=== PATIENT | male | born 1935 | race Caucasian/White ===

== ENCOUNTER 2017-05-14 10:08 | Emergency (ER) | payer MEDICARE, OTHER ==
[~2017-05-14] VITALS: Ht 177.8 cm; Wt 83.9 kg
[~2017-05-14 10:08] MED LIST: ANDROGEL1.25 GM TD; ASCO500 PO; ASPI325 PO; ASPI81CH PO; ATOR20 PO; CLIN300 PO; CLOP75 PO; DICL75ER PO; Dilaudid 2 mg Ta2 MG PO; GLUCOSAMINE &1 EACH PO; ISOMON20; Keflex500 MG PO; LEVOCETIRIZINE D5 MG PO; Metoprolol Succ25 MG PO; Miralax17 GM PO; NITR.4SL SL; Nitroglycerin0.4 MG; OMEP20ER PO; Omeprazole20 M1 PO; Percocet 5-3251 EACH PO; Roxicodone5 MG PO; Super B Comple150 MG PO; Super B-50 Com1 EACH PO; TESTOSTERONE PO; TRAZ50 PO
[2017-05-14 11:01] LABS: BASOPHILS ABSOLUTE AUTO 0.07 K/mm3 (0.00-0.23); BASOPHILS PERCENT AUTO 2 % (0-2); EOSINOPHILS ABSOLUTE AUTO 0.04 K/mm3 (0.00-0.68); EOSINOPHILS PERCENT AUTO 1 % (0-6); Hematocrit 40.7 % (37.0-53.0); IMMATURE GRAN PERCENT AUTO 0 % (0-1); LYMPHOCYTES ABSOLUTE AUTO 0.87 K/mm3 (0.84-5.20); LYMPHOCYTES PERCENT AUTO 24 % (21-46); MONOCYTES ABSOLUTE AUTO 0.27 K/mm3 (0.16-1.47); MONOCYTES PERCENT AUTO 7 % (4-13); Mean Corpuscular HGB Conc 34.4 g/dL (31.5-36.5); Mean Corpuscular Volume 93 fL (80-100); Mean Platelet Volume 8.4 fL (9.1-12.4); NEUTROPHILS PERCENT AUTO 66 % (41-73); Platelet Count 307 K/mm3 (150-400); RDW Coefficient Variation 12.3 % (11.7-14.2); RDW Standard Deviation 42.4 fL (35.1-46.3); Red Blood Cell Count 4.37 M/mm3 (4.30-5.90); White Blood Cell Count 3.65 K/mm3 (4.00-11.30)
[2017-05-14 11:22] LABS: Alanine Aminotransfer (ALT/SGP 15 U/L (12-78); Albumin, Blood 3.2 g/dL (3.4-5.0); Alk Phos 91 U/L (50-136); Anion Gap 9 mmol/L (6-16); Aspartate Aminotrans (AST/SGOT 15 U/L (12-37); Bilirubin, Total 0.5 mg/dL (0.1-1.0); Blood Urea Nitrogen 15 mg/dL (8-24); Bun/Creatinine Ratio 13.9 (12.0-20.0); CO2, Blood 24 mmol/L (21-32); Calcium, Blood 8.2 mg/dL (8.5-10.1); Chloride, Blood 108 mmol/L (98-108); Creatinine, Blood 1.08 mg/dL (0.60-1.20); Globulin, Blood 3.3 g/dL (2.2-4.0); Glomerular Filtration Rate >60 (60-); Glucose, Blood 126 mg/dL (70-99); Potassium, Blood 4.1 mmol/L (3.5-5.5); Sodium, Blood 141 mmol/L (136-145); Total Protein, Blood 6.5 g/dL (6.4-8.2); Troponin I <0.015 ng/mL (0.000-0.040)
[2017-05-14] MEDS ORDERED: Celebrex200 MG PO (11:32)
[2017-05-14] MEDS ORDERED: Norco 5-325 Ta1 EACH PO (11:32)
[2017-10-04] MEDS ORDERED: TYLENOL325 MG PO (13:09)
[2017-10-04] MEDS ORDERED: Stool Softener100 MG PO (13:10)
[2017-10-04] MEDS ORDERED: ATOR20 PO (13:11)
[2017-10-04] MEDS ORDERED: MELA3 PO (13:11)
[2017-11-20] MEDS ORDERED: VITAMIN C PO (11:19)
[2017-11-20] MEDS ORDERED: Preservision A1 EACH PO (11:20)
[2017-12-31] MEDS ORDERED: VIT1CAPS12 PO (06:30)
== END 2017-05-14 11:59 | disposition home or self-care (01) ==
LOC: ER 10:08
PROVIDERS: Internal Medicine
DX: R07.89 Other chest pain (principal); M94.0 Chondrocostal junction syndrome [Tietze]; Z88.0 Allergy status to penicillin; Z88.5 Allergy status to narcotic agent; Z79.899 Other long term (current) drug therapy; Z79.82 Long term (current) use of aspirin
CPT/HCPCS: 36415; 71046; 80053; 84484; 85025; 85379; 93005; 93010; 99283

== ENCOUNTER 2018-08-15 15:35 | Emergency (ER) | payer MEDICARE, OTHER ==
[~2018-08-15] VITALS: Ht 177.8 cm; Wt 78.0 kg
[~2018-08-15 15:35] MED LIST changes: +Celebrex200 MG PO; +MELA3 PO; +Norco 5-325 Ta1 EACH PO; +Preservision A1 EACH PO; +Stool Softener100 MG PO; +TYLENOL325 MG PO; +VIT1CAPS12 PO; +VITAMIN C PO
[2018-08-15] MEDS ORDERED: LEVOFLOXACIN250 MG PO (16:12)
[2018-08-15] MEDS ORDERED: IBUP800 (16:12)
[2018-08-15] MEDS ORDERED: NITR.4SL SL (16:12)
[2018-08-15] MEDS ORDERED: OMEPRAZOLE CAP 20M (16:12)
[2018-08-15 16:23] LABS: BASOPHILS ABSOLUTE AUTO 0.06 K/mm3 (0.00-0.23); BASOPHILS PERCENT AUTO 1 % (0-2); EOSINOPHILS ABSOLUTE AUTO 0.14 K/mm3 (0.00-0.68); EOSINOPHILS PERCENT AUTO 3 % (0-6); Hematocrit 41.5 % (37.0-53.0); Hemoglobin 13.6 g/dL (13.5-17.5); IMMATURE GRAN ABSOLUTE AUTO 0.01 K/mm3 (0.00-0.10); IMMATURE GRAN PERCENT AUTO 0 % (0-1); LYMPHOCYTES ABSOLUTE AUTO 1.16 K/mm3 (0.84-5.20); LYMPHOCYTES PERCENT AUTO 25 % (21-46); MONOCYTES ABSOLUTE AUTO 0.25 K/mm3 (0.16-1.47); MONOCYTES PERCENT AUTO 5 % (4-13); Mean Corpuscular HGB 31.4 pg (26.0-34.0); Mean Corpuscular HGB Conc 32.8 g/dL (31.5-36.5); Mean Corpuscular Volume 96 fL (80-100); Mean Platelet Volume 8.8 fL (9.1-12.4); NEUTROPHILS ABSOLUTE AUTO 2.97 K/mm3 (1.96-9.15); NEUTROPHILS PERCENT AUTO 65 % (41-73); Platelet Count 371 K/mm3 (150-400); RDW Coefficient Variation 12.3 % (11.7-14.2); Red Blood Cell Count 4.33 M/mm3 (4.30-5.90); White Blood Cell Count 4.59 K/mm3 (4.00-11.30)
[2018-08-15 16:46] LABS: Alanine Aminotransfer (ALT/SGP 14 U/L (12-78); Albumin, Blood 3.4 g/dL (3.4-5.0); Alk Phos 92 U/L (50-136); Anion Gap 7 mmol/L (6-16); Aspartate Aminotrans (AST/SGOT 10 U/L (12-37); Bilirubin, Total 0.4 mg/dL (0.1-1.0); Blood Urea Nitrogen 21 mg/dL (8-24); Bun/Creatinine Ratio 16.9 (12.0-20.0); CO2, Blood 26 mmol/L (21-32); Calcium, Blood 8.2 mg/dL (8.5-10.1); Chloride, Blood 110 mmol/L (98-108); Creatinine, Blood 1.24 mg/dL (0.60-1.20); Globulin, Blood 3.4 g/dL (2.2-4.0); Glomerular Filtration Rate 59 (60-); Glucose, Blood 109 mg/dL (70-99); Sodium, Blood 143 mmol/L (136-145); Total Protein, Blood 6.8 g/dL (6.4-8.2); Troponin I <0.015 ng/mL (0.000-0.040)
== END 2018-08-15 18:23 | disposition home or self-care (01) ==
LOC: ER 15:35
PROVIDERS: Internal Medicine
DX: R07.9 Chest pain, unspecified (principal); R29.898 Other symptoms and signs involving the musculoskeletal system; Z88.0 Allergy status to penicillin; Z88.5 Allergy status to narcotic agent; Z88.8 Allergy status to other drugs, medicaments and biological substances; Z79.899 Other long term (current) drug therapy; Z79.82 Long term (current) use of aspirin
CPT/HCPCS: 70450; 71046; 80053; 83690; 83880; 84484; 85025; 93005; 93010; 99285-25

== ENCOUNTER → 2018-09-01 | Outpatient (CLI) | payer MEDICARE, OTHER ==
[~2018-09-01] MED LIST changes: +DOCU100 PO; +IBUP800; +LEVOFLOXACIN250 MG PO; +MELATONIN10 M2 PO; +OMEPRAZOLE CAP 20M
== END ==
LOC: PLD 07:24 → LAB SHORT 07:24
DX: D48.5 Neoplasm of uncertain behavior of skin (principal)
CPT/HCPCS: 88341; 88342

== ENCOUNTER 2018-10-06 18:35 | Emergency (ER) | payer MEDICARE, OTHER ==
[~2018-10-06] VITALS: Ht 177.8 cm; Wt 78.5 kg
[~2018-10-06 18:35] MED LIST changes: -DOCU100 PO; -MELATONIN10 M2 PO
[2018-10-06 19:11] LABS: BASOPHILS ABSOLUTE AUTO 0.07 K/mm3 (0.00-0.23); BASOPHILS PERCENT AUTO 1 % (0-2); EOSINOPHILS ABSOLUTE AUTO 0.09 K/mm3 (0.00-0.68); EOSINOPHILS PERCENT AUTO 2 % (0-6); Hematocrit 36.9 % (37.0-53.0); Hemoglobin 12.2 g/dL (13.5-17.5); IMMATURE GRAN PERCENT AUTO 0 % (0-1); LYMPHOCYTES ABSOLUTE AUTO 1.15 K/mm3 (0.84-5.20); LYMPHOCYTES PERCENT AUTO 23 % (21-46); MONOCYTES ABSOLUTE AUTO 0.31 K/mm3 (0.16-1.47); MONOCYTES PERCENT AUTO 6 % (4-13); Mean Corpuscular HGB 31.9 pg (26.0-34.0); Mean Corpuscular HGB Conc 33.1 g/dL (31.5-36.5); Mean Corpuscular Volume 96 fL (80-100); Mean Platelet Volume 8.6 fL (9.1-12.4); NEUTROPHILS PERCENT AUTO 67 % (41-73); Platelet Count 392 K/mm3 (150-400); RDW Coefficient Variation 12.9 % (11.7-14.2); RDW Standard Deviation 45.5 fL (35.1-46.3); Red Blood Cell Count 3.83 M/mm3 (4.30-5.90); White Blood Cell Count 4.92 K/mm3 (4.00-11.30)
[2018-10-06 19:32] LABS: Alanine Aminotransfer (ALT/SGP 12 U/L (12-78); Albumin, Blood 3.3 g/dL (3.4-5.0); Alk Phos 86 U/L (50-136); Anion Gap 5 mmol/L (6-16); Aspartate Aminotrans (AST/SGOT 11 U/L (12-37); Bilirubin, Total 0.2 mg/dL (0.1-1.0); Blood Urea Nitrogen 25 mg/dL (8-24); Bun/Creatinine Ratio 20.2 (12.0-20.0); CO2, Blood 26 mmol/L (21-32); Calcium, Blood 7.9 mg/dL (8.5-10.1); Chloride, Blood 111 mmol/L (98-108); Creatinine, Blood 1.24 mg/dL (0.60-1.20); Globulin, Blood 3.3 g/dL (2.2-4.0); Glomerular Filtration Rate 59 (60-); Glucose, Blood 95 mg/dL (70-99); Potassium, Blood 4.1 mmol/L (3.5-5.5); Sodium, Blood 142 mmol/L (136-145); Total Protein, Blood 6.6 g/dL (6.4-8.2); Troponin I <0.015 ng/mL (0.000-0.040)
[2018-10-30] MEDS ORDERED: VIT1CAPS12 PO (11:19)
[2018-10-30] MEDS ORDERED: ASCO500 PO (11:19)
[2018-10-30] MEDS ORDERED: MELATONIN10 M2 PO (11:20)
[2018-10-30] MEDS ORDERED: DOCU100 PO (11:20)
== END 2018-10-06 23:56 | disposition home or self-care (01) ==
LOC: ER 18:35
PROVIDERS: Physician Assistant
DX: R07.89 Other chest pain (principal); Z88.0 Allergy status to penicillin; Z88.5 Allergy status to narcotic agent; Z88.8 Allergy status to other drugs, medicaments and biological substances; Z79.899 Other long term (current) drug therapy; Z79.82 Long term (current) use of aspirin
CPT/HCPCS: 36415; 71046; 80053; 84484; 85025; 93005; 93010; 99285-25

== ENCOUNTER 2018-11-06 09:00 | Day surgery (SDC) | payer MEDICARE, OTHER ==
[~2018-11-06] VITALS: Ht 177.8 cm; Wt 75.4 kg
[~2018-11-06 09:00] MED LIST changes: +DOCU100 PO; +MELATONIN10 M2 PO
[2018-11-06 11:13] LABS: Anion Gap 13 mmol/L (6-16); Blood Urea Nitrogen 11 mg/dL (8-24); Bun/Creatinine Ratio 14.4 (12.0-20.0); CO2, Blood 23 mmol/L (21-32); Chloride, Blood 110 mmol/L (98-108); Creatinine, Blood 0.76 mg/dL (0.60-1.20); Glomerular Filtration Rate >60 (60-); Glucose, Blood 79 mg/dL (70-99); Potassium, Blood 4.8 mmol/L (3.5-5.5); Sodium, Blood 146 mmol/L (136-145)
--- NOTE | 2018-11-06 11:21 | NUR ---
11/06/[address] NOTIFIED OF PT.'S LABS DRAWN IN PREOP.
== END 2018-11-06 12:33 | disposition home or self-care (01) ==
LOC: ORSCSDS 09:00
PROVIDERS: Surgery
PROC: 0DBM8ZX Excision of Descending Colon, Via Natural or Artificial Opening Endoscopic, Diagnostic (ICD-10-PCS; principal; 2018-11-06 10:30)
PROC: 0DB58ZX Excision of Esophagus, Via Natural or Artificial Opening Endoscopic, Diagnostic (ICD-10-PCS; principal; 2018-11-06 10:30)
PROC: 0DB68ZX Excision of Stomach, Via Natural or Artificial Opening Endoscopic, Diagnostic (ICD-10-PCS; principal; 2018-11-06 10:30)
PROC: 0DBL8ZX Excision of Transverse Colon, Via Natural or Artificial Opening Endoscopic, Diagnostic (ICD-10-PCS; principal; 2018-11-06 10:30)
DX: Z12.11 Encounter for screening for malignant neoplasm of colon (principal); Z86.010 Personal history of colon polyps; D12.3 Benign neoplasm of transverse colon; D12.4 Benign neoplasm of descending colon; K21.9 Gastro-esophageal reflux disease without esophagitis; K22.70 Barrett's esophagus without dysplasia; Z87.19 Personal history of other diseases of the digestive system; I25.10 Atherosclerotic heart disease of native coronary artery without angina pectoris; I10 Essential (primary) hypertension; E78.5 Hyperlipidemia, unspecified; Z79.899 Other long term (current) drug therapy; Z79.82 Long term (current) use of aspirin
CPT/HCPCS: 80048; 88305; 88342; 93005; 93010; J2704; J7120

== ENCOUNTER → 2019-12-23 | Outpatient (CLI) | payer MEDICARE, OTHER ==
[~2019-12-23] MED LIST changes: +ACET500 PO; +ATOR20; +Aspir 8181 MG PO; +IBUP800 PO; +METO25ER PO; +OMEPRAZOLE20 M1 PO; +PRESERVISION L1 EACH PO; +[UNRECOGNIZED DRUG - REMARK] PO
[2019-12-23 14:20] LABS: Microalbumin, Urine Quant. 35.7 mg/L (0.000-20.000); Protein, Urine Quantitative 26.4 mg/dL (0.0-11.9)
[2019-12-24 14:03] LABS: Stool Occult Bld Immuno 1 Negative (NEGATIVE)
== END | disposition home or self-care (01) ==
LOC: OLS 12:15 → LAB SHORT 12:15 → LAB FUT 12-20 12:05
PROVIDERS: Internal Medicine Nephrology
DX: N18.2 Chronic kidney disease, stage 2 (mild) (principal); D63.1 Anemia in chronic kidney disease; N25.81 Secondary hyperparathyroidism of renal origin; E55.9 Vitamin D deficiency, unspecified; E78.00 Pure hypercholesterolemia, unspecified; D51.8 Other vitamin B12 deficiency anemias; D52.8 Other folate deficiency anemias; D50.9 Iron deficiency anemia, unspecified; R76.9 Abnormal immunological finding in serum, unspecified; R94.5 Abnormal results of liver function studies; R94.6 Abnormal results of thyroid function studies
CPT/HCPCS: 81050; 82043; 82570; 84156; G0328

== ENCOUNTER 2020-02-27 08:07 | Emergency (ER) | payer MEDICARE, OTHER ==
[~2020-02-27] VITALS: Ht 177.8 cm; Wt 79.4 kg
[~2020-02-27 08:07] MED LIST changes: -ATOR20
[2020-02-27 10:36] LABS: Source, Urine Clean Catch
[2020-02-27 10:40] LABS: Appearance, Urine Clear (Clear); Bilirubin, Urine Neg (Neg); Blood, Urine 1+ (Neg); Color, Urine Yellow (P-Yellow); Glucose Qualitative, Urine Neg (Neg); Ketones, Urine Neg (Neg); Leukocyte Esterase, Urine Neg (Neg); Nitrite, Urine Neg (Neg); Protein, Urine Neg (Neg); Urobilinogen, Urine NORM (Normal)
[2020-02-27 10:53] LABS: White Blood Cells, Urine 0-2 /hpf (0-5)
[2020-02-27 10:54] LABS: Bacteria Not Seen /hpf; Squamous Epithelial Cells Not Seen /hpf (Few)
[2020-02-27] MEDS ORDERED: TRAZ100 PO (11:12)
[2020-02-27] MEDS ORDERED: Isosorbide Mono30 MG PO (11:14)
[2020-02-27] MEDS ORDERED: FISH OIL PO (11:15)
[2020-02-27] MEDS ORDERED: GABA300 PO (11:15)
[2020-02-27] MEDS ORDERED: CALCIUM-MAGNES1 EAC9 PO (11:16)
[2020-02-27] MEDS ORDERED: Depakote ER500 MG PO (11:17)
== END 2020-02-27 11:55 | disposition home or self-care (01) ==
LOC: ER 08:07
PROVIDERS: Physician Assistant
DX: R33.9 Retention of urine, unspecified (principal); I10 Essential (primary) hypertension; Z88.0 Allergy status to penicillin; Z88.5 Allergy status to narcotic agent; Z88.8 Allergy status to other drugs, medicaments and biological substances; Z95.5 Presence of coronary angioplasty implant and graft; Z79.82 Long term (current) use of aspirin; Z79.899 Other long term (current) drug therapy
CPT/HCPCS: 51702; 51798; 81001; 99283-25

== ENCOUNTER 2020-02-28 10:19 | Emergency (ER) | payer MEDICARE, OTHER ==
[~2020-02-28] VITALS: Ht 177.8 cm; Wt 78.0 kg
[~2020-02-28 10:19] MED LIST changes: +CALCIUM-MAGNES1 EAC9 PO; +Depakote ER500 MG PO; +FISH OIL PO; +GABA300 PO; +Isosorbide Mono30 MG PO; +TRAZ100 PO
== END 2020-02-28 11:12 | disposition home or self-care (01) ==
LOC: ER 10:19
DX: T83.84XA Pain due to genitourinary prosthetic devices, implants and grafts, initial encounter (principal); I10 Essential (primary) hypertension; Z79.82 Long term (current) use of aspirin; Z79.899 Other long term (current) drug therapy; Z88.0 Allergy status to penicillin; Z88.5 Allergy status to narcotic agent; Z88.8 Allergy status to other drugs, medicaments and biological substances; Z95.5 Presence of coronary angioplasty implant and graft
CPT/HCPCS: 99282-25

== ENCOUNTER 2020-03-01 12:05 | Emergency (ER) | payer MEDICARE, OTHER ==
[~2020-03-01] VITALS: Ht 177.8 cm; Wt 78.0 kg
== END 2020-03-01 14:10 | disposition home or self-care (01) ==
LOC: ER 12:05
DX: T83.031A Leakage of indwelling urethral catheter, initial encounter (principal); I95.9 Hypotension, unspecified; Z79.82 Long term (current) use of aspirin; Z79.899 Other long term (current) drug therapy; Z88.0 Allergy status to penicillin; Z88.5 Allergy status to narcotic agent
CPT/HCPCS: 51702; 99282-25

== ENCOUNTER 2020-03-28 12:39 | Inpatient (IN) | payer MEDICARE, OTHER ==
[~2020-03-28] VITALS: Ht 177.8 cm; Wt 72.1 kg
[2020-03-28 13:10] LABS: BASOPHILS ABSOLUTE AUTO 0.06 K/mm3 (0.00-0.23); BASOPHILS PERCENT AUTO 1 % (0-2); EOSINOPHILS ABSOLUTE AUTO 0.04 K/mm3 (0.00-0.68); EOSINOPHILS PERCENT AUTO 1 % (0-6); Hematocrit 43.4 % (37.0-53.0); Hemoglobin 13.7 g/dL (13.5-17.5); IMMATURE GRAN ABSOLUTE AUTO 0.01 K/mm3 (0.00-0.10); IMMATURE GRAN PERCENT AUTO 0 % (0-1); LYMPHOCYTES ABSOLUTE AUTO 1.07 K/mm3 (0.84-5.20); LYMPHOCYTES PERCENT AUTO 23 % (21-46); MONOCYTES ABSOLUTE AUTO 0.37 K/mm3 (0.16-1.47); MONOCYTES PERCENT AUTO 8 % (4-13); Mean Corpuscular HGB 31.9 pg (26.0-34.0); Mean Corpuscular HGB Conc 31.6 g/dL (31.5-36.5); Mean Corpuscular Volume 101 fL (80-100); NEUTROPHILS ABSOLUTE AUTO 3.02 K/mm3 (1.96-9.15); NEUTROPHILS PERCENT AUTO 66 % (41-73); Platelet Count 299 K/mm3 (150-400); RDW Coefficient Variation 13.1 % (11.7-14.2); RDW Standard Deviation 48.8 fL (35.1-46.3); Red Blood Cell Count 4.29 M/mm3 (4.30-5.90); White Blood Cell Count 4.57 K/mm3 (4.00-11.30)
[2020-03-28 13:27] LABS: Alanine Aminotransfer (ALT/SGP 12 U/L (12-78); Albumin, Blood 3.2 g/dL (3.4-5.0); Albumin/Globulin Ratio 0.8 (0.8-1.8); Alk Phos 77 U/L (50-136); Anion Gap 3 mmol/L (6-16); Aspartate Aminotrans (AST/SGOT 14 U/L (12-37); Bilirubin, Total 0.3 mg/dL (0.1-1.0); Blood Urea Nitrogen 26 mg/dL (8-24); Bun/Creatinine Ratio 19.3 (12.0-20.0); CO2, Blood 29 mmol/L (21-32); Calcium, Blood 8.1 mg/dL (8.5-10.1); Chloride, Blood 109 mmol/L (98-108); Creatinine, Blood 1.35 mg/dL (0.60-1.20); Globulin, Blood 3.8 g/dL (2.2-4.0); Glomerular Filtration Rate 54 (60-); Glucose, Blood 82 mg/dL (70-99); Potassium, Blood 4.4 mmol/L (3.5-5.5); Sodium, Blood 141 mmol/L (136-145); Troponin I <0.015 ng/mL (0.000-0.040)
[2020-03-28] MEDS ORDERED: METOPROLOL SUCC25 MG PO (14:50)
[2020-03-28] MEDS ORDERED: DEPAKOTE ER500 MG PO (14:50)
[2020-03-28] MEDS ORDERED: NEURONTIN600 MG PO (14:50)
[2020-03-28] MEDS ORDERED: TRAZ50 PO (14:50)
[2020-03-28] MEDS ORDERED: ATORVASTATIN CA20 MG PO (14:51)
[2020-03-28] MEDS ORDERED: NITR.4SL SL (14:51)
[2020-03-28] MEDS ORDERED: PRILOSEC OTC20 MG PO (14:51)
[2020-03-28 15:38] LABS: International Normalized Ratio 1.02; Prothrombin Time Results 10.9 Sec (9.7-11.5)
--- NOTE | 2020-03-28 19:26 | NUR ---
PT RESTING IN BED AFTER DINNER AND RN SURGICAL PCU. PT LINE WNL AND RUNNING HEP DRIP BEING TITRATED BY PHARMACY. PT MAKES NO COMPLAINTS OF PAIN OR SOB AT THIS TIME, HOWEVER HE RECEIVED HIS NITRO PAST 1.5 HOURS EARLY DIRECTED BY UNIT CHARGE WHEN AN "ACHE" OCCURED. STAFF WILL CONT. TO MONITOR.
--- NOTE | 2020-03-28 20:43 | NUR ---
PT on tele hx card with stent 10 years ago says he has chest tightness discomfort 05/04 with [address] Tele shows SR at 80. Hx of misael fundipication remote & says he is having procedure on 04/12/20 for esophageal problems ongoing food sticking. Continues on heparin gtt & NS at 75 ml hr x 1 l. Had flu vaccine 2 weeks ago.
[2020-03-28] MEDS ORDERED: ATOR40TA PO (21:36)
[2020-03-29 01:19] LABS: BASOPHILS ABSOLUTE AUTO 0.07 K/mm3 (0.00-0.23); BASOPHILS PERCENT AUTO 2 % (0-2); EOSINOPHILS ABSOLUTE AUTO 0.11 K/mm3 (0.00-0.68); EOSINOPHILS PERCENT AUTO 3 % (0-6); Hemoglobin 11.2 g/dL (13.5-17.5); IMMATURE GRAN ABSOLUTE AUTO 0.01 K/mm3 (0.00-0.10); IMMATURE GRAN PERCENT AUTO 0 % (0-1); LYMPHOCYTES ABSOLUTE AUTO 1.83 K/mm3 (0.84-5.20); LYMPHOCYTES PERCENT AUTO 45 % (21-46); MONOCYTES ABSOLUTE AUTO 0.36 K/mm3 (0.16-1.47); MONOCYTES PERCENT AUTO 9 % (4-13); Mean Corpuscular HGB 32.9 pg (26.0-34.0); Mean Corpuscular HGB Conc 32.9 g/dL (31.5-36.5); Mean Corpuscular Volume 100 fL (80-100); Mean Platelet Volume 9.1 fL (9.1-12.4); NEUTROPHILS PERCENT AUTO 42 % (41-73); Platelet Count 223 K/mm3 (150-400); RDW Coefficient Variation 13.1 % (11.7-14.2); RDW Standard Deviation 48.3 fL (35.1-46.3); White Blood Cell Count 4.08 K/mm3 (4.00-11.30)
[2020-03-29 01:40] LABS: Bun/Creatinine Ratio 23.2 (12.0-20.0); Calcium, Blood 7.4 mg/dL (8.5-10.1); Creatinine, Blood 1.25 mg/dL (0.60-1.20); Potassium, Blood 4.3 mmol/L (3.5-5.5); Troponin I 0.047 ng/mL (0.000-0.040)
--- NOTE | 2020-03-29 05:56 | NUR ---
84 year old Male has lt chest pain 9 of 10 x 1 unstable angina with hx of cardiac stent in 2010 angiogram 2014 without further stenting. PT alert in good spirits joking. He has heparin GTT managed by pharmacy with APTT as per pharmacy. Increased heparin gtt rate from 13 units fro kg to 14 units kg this AM. PT had chest pain lt sided 11/23 relieved by fentanyl 25 mg x 1 & tylenol 650 mg. PT states he has chronic acute constipation with last BM 2 weeks ago after he said last BM 1 week ago. He takes stool softeners at home with laxative use also reported.abd soft nontender hypo BS. Poor appetite recieved NS at 75 ml hr with increased urine production. Has cardilogy consult pending. Serial troponins with 3rd slightly high. DNR status verfied. PT refused SCDS hear home support isadora loomis . Support offered.
--- NOTE | 2020-03-29 06:46 | NUR ---
DR Olivares updated on 3rd troponin elevated from 0.039 to 0.047 with denial of acute chest pain this AM.
--- NOTE | 2020-03-29 18:36 | NUR ---
SHIFT SUMMARY PT A/O X4; PLEASANT AND COOPERATIVE WITH CARE. C/O CP X1 THIS SHIFT AND TREATED PER EMR. PT IS ON A HEPARIN DRIP, MANAGED BY PHARMACY. GOING TO HAVE AN ANGIOGRAM TOMORROW. STAND BY ASSIST IN THE ROOM. VSS; CURRENTLY RESTING COMFORTABLY IN BED WITH HIS CALL LIGHT IN REACH.
[2020-03-29] MEDS ORDERED: MIRALAX17 GM PO (20:42)
[2020-03-29] MEDS ORDERED: SENNA LAXATIVE8.6 MG PO (20:42)
[2020-03-29] MEDS ORDERED: BISA10S PR (20:43)
[2020-03-29] MEDS ORDERED: BISA5EC PO (20:44)
--- NOTE | 2020-03-30 01:08 | NUR ---
RN MATERNAL CHILD Blanca BENJAMIN called for bowel care orders earlier because PT says he has not had a bowel movement in several weeks abd soft nontender. said he tolerated 3 meals & passing sm amat flatus. Orders obtained for further bowel care orders.
[2020-03-30 06:34] LABS: Influenza A, PCR Negative (NEGATIVE); Influenza B, PCR Negative (NEGATIVE); Resp Syncytial Virus, PCR Negative (NEGATIVE); SARS-Cov-2 (COVID-19) PCR, MMC Negative (NEGATIVE)
--- NOTE | 2020-03-30 06:37 | NUR ---
pt WITH CO 5/10 LT CHEST PAIN X 1 RELIEVED BY 2 GM NITROPASTE & FENTANYL 25 MG. pt ALERT COOPARATE. 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 CARDIAC CATH PENDING THIS AM. STRONG HX OF GI PROBLEMS HAS ESPOHOGEAL ISSUES HAS PROCEDURE SCHEDULED TO ADDRESS. mULTIPLE ABD HERNIA SURGERIES IN PAST WITH HX OF [place] FUNDIPICATION FAILED. HX OF CERVICAL FUSION. RESP PANEL PRE CARDIAC CATH COMPLETE & NEGATIVE. bOWEL CARE ORDERS OBTAINED FOR CHRONIC CONSTIPATION.
--- NOTE | 2020-03-30 07:20 | NUR ---
PT has 1 episode of acute lt chest pain that radiated to lt arm to elbow at shift change. It was relieved by 25 mcg fent. He has 2 gm nitro paste due at o800. Cardiac cath pending NPO since midnight.
--- NOTE | 2020-03-30 11:11 | NUR ---
PT TO PATTERN VAULT CLERK AT AROUND 0930. WILL GO TO [facility] WHEN FINISHED.
--- NOTE | 2020-03-30 13:08 | NUR ---
PT TRANSFERRED FROM MEDICAL FLOOR RM 355, ANGIO DONE TODAY, PT ARRIVED IN THE UNIT FROM [facility]ART [facility]ENTER VIA WHEELCHAIR. ALERT AND ORIENTED, SBA FOR TRANSFERS. PT FOR COBRA TRANSFER TO [facility] PT WITH LCX 95% OCCLUSION FOR POSS CABG. PT DENIES ANY CHEST PAIN UPON ARRIVAL TO THE UNIT 0. VITALS HRR SINUS 70'S, BP SYSTOLIC 120'S, SATS ABOVE 93% ONRA, AFEBRILE. PT IN BED EATING LUNCH AT THIS TIME, AWAITING FOR A BED AVAILABILITY AT [facility]. HEPARIN WAS RESTARTED UPON ARRIVAL PER DR VILLAR, WAS THEN DC'D BY DR PERALTA. WILL CONTINUE TO MONITOR PT
--- NOTE | 2020-03-30 13:15 | NUR ---
RIGHT RADIAL ACCESS SITE WITH 12CC OF AIR IN THE TR BAND. IMMOBILIZER IN PLACE. NO HEMATOMA OR BLEEDING NOTED.
--- NOTE | 2020-03-30 16:47 | NUR ---
NO ACUTE CHANGE SINCE PT ARRIVED IN THE UNIT, VITALS STABLE. PT DENIES ANY CHEST PAIN, NITRO PASTE ADMINISTER PER ORDER ON SCHEDULE. RIGHT RADIAL ACCESS SITE FULLY RECOVERED, TRANSPARENT DRESSING IN PLACE, NO HEMATOMA OR BLEEDING NOTED. PT HAD MULTIPLE EPISODES OF BM TODAY PT STATED THAT HE WAS GIVEN SOMETHING TO HELP HAVING A BM UP IN [facility] SINCE HE HASN'T HAVE ANY BM FOR THE LAST 2 WEEKS. PT HAD LARGE NORMAL BM AND HAD SMALL LOOSE AFTER WARDS. PT SBA FOR TRANSFER VIA WALKER, USES BATHROOM FOR TOILETING. PT NOW IN BED RESTING, AT BEDSIDE, AWARE OF THE PLAN STILL WAITING FOR BED AVAILABILITY FOR COBRA TRANSFER UP TO [facility] AT THIS TIME
--- NOTE | 2020-03-30 20:59 | NUR ---
PROVIDER AWAITING BED AT ACCEPTING FACILITY [facility]. DR PERALTA CALLED REGARDING CLARIFICATION IF HEPARIN WAS DC'D DUE TOBELIEF THAT PT WOULD BE IMMEDIATELY TRANSPORED AND PLACED INTO SURGERY. DR PERALTA STATES HIS INTENTION WAS TO CONTINUE TO KEEP HEPARIN OFF AT THIS TIME. STATES STENOSIS NOT SEVERE ENOUGH TO NEED HEPARIN GTT LONG PT CONTINUED TO DENY SEVERE CP. PT DENYING CP AT THIS TIME. SUNIL MONITOR FOR CHANGES.
--- NOTE | 2020-03-31 05:47 | NUR ---
SHIFT SUMMARY NO ACUTE CHANGES THIS SHIFT. PT A&OX4. SP02>92% ON RA. TELEMETRY READS SR-ST, HR 80'S-100'S. PT C/O OF 2/10 CP, RELIEVED W/ SCHEDULED NITRO PASTE PER EMAR. PT AMBULATED TO BATHROOM W/ WALKER AND SBA X3 THIS SHIFT WITH NO ISSUES. PT WORE SCD'S MAJORITY OF SHIFT W/ ONE BREAK. PT STATED THE SCD'S HELPED HIS NEUROPATHY. CALL LIGHT IN REACH. WILL GIVE REPORT TO ONCOMING SHIFT NURSE.
--- NOTE | 2020-03-31 08:00 | NUR ---
pt laying in bed watching tv, a/ox3, pleasant and cooperative with care, denies pain at this time, just a twinge here and there, plan is for pt to be cobra transfered to [facility] for bypass, states he had a good night sleep last night, lungs are clear t/o, resp even and unlabored, no cough noted, hrr, tele in place running sr per monitor, see strip, very trace edema noted to b/l le, ppp+1, cap refill <3sec, vs stable, afebrile, iv site is clear and patent, btx4, abd flat soft notender, voids without diff via urinal, skin has right wrist tr band site, is clear, arm board in place, petra queen, call light in reach, waiting on room for him at [place].
--- NOTE | 2020-04-01 06:52 | NUR ---
SHIFT SUMMARY NO ACUTE CHANGES THIS SHIFT. PT A&OX4. SP02>92% ON RA. TELEMETRY READS SR, HR 60'S. PT DENIED CP. PT C/O OF 12/02 MIGRAINE, MEDICATED W/ TYLENOL PER EMAR. PT AMBULATED TO BATHROOM W/ WALKER AND SBA THIS SHIFT WITH NO ISSUES. PT WORE SCD'S MAJORITY OF SHIFT. PT AWAITING BED FOR COBRA TRANSFER. CALL LIGHT IN REACH. WILL GIVE REPORT TO ONCOMING SHIFT NURSE.
--- NOTE | 2020-04-01 08:00 | NUR ---
pt laying in bed awake a/ox3, pleasant and cooperative with care, follows commands well, denies pain at this time, states he had a good night, lungs are clear t/o, resp even and unlabored, no cough noted, hrr, tele in place running sr per monitor, see strip, no edema noted, ppp+1, cap refill <3sec, vs stable, afebrile, iv site is clear and patent, btx4, abd flat soft nontender, voids without diff, skin c/w/d, petra queen, call light in reach, will be leaving for [place] this am.
--- NOTE | 2020-04-01 09:45 | NUR ---
transport here to take pt to [place]. in room, called Kat RN to give report but needs to call back, report given to EMT, paperwork given, left via gurney with his belongings.
--- NOTE | 2020-04-01 10:07 | NUR ---
gave report to Kat AHUMADA.
[2020-06-01] MEDS ORDERED: CLOP75 PO (16:18)
== END 2020-04-01 09:40 | disposition short-term general hospital (02) | DRG 282 ==
LOC: ER 12:39 → MEDS 16:12 → PCU 16:12 → MEDS 16:27 → PCU 03-30 11:42
PROVIDERS: Emergency Medicine; Internal Medicine; Nurse Practitioner Acute Care; ADMIT Internal Medicine
PROC: B2111ZZ Fluoroscopy of Multiple Coronary Arteries using Low Osmolar Contrast (ICD-10-PCS; principal; 2020-03-30)
PROC: B240ZZ3 Ultrasonography of Single Coronary Artery, Intravascular (ICD-10-PCS; 2020-03-30)
DX: I25.110 Atherosclerotic heart disease of native coronary artery with unstable angina pectoris (principal); I21.A1 Myocardial infarction type 2; E78.5 Hyperlipidemia, unspecified; Z20.828 Contact with and (suspected) exposure to other viral communicable diseases; N18.30 Chronic kidney disease, stage 3 unspecified; Z90.79 Acquired absence of other genital organ(s); Z66 Do not resuscitate; G43.909 Migraine, unspecified, not intractable, without status migrainosus; I12.9 Hypertensive chronic kidney disease with stage 1 through stage 4 chronic kidney disease, or unspecified chronic kidney disease; E11.42 Type 2 diabetes mellitus with diabetic polyneuropathy; K21.9 Gastro-esophageal reflux disease without esophagitis; Z86.718 Personal history of other venous thrombosis and embolism; Z86.711 Personal history of pulmonary embolism
CPT/HCPCS: 0241U; 36415; 71045; 76937; 80048; 80053; 84484; 85025; 85347; 85610; 85730; 92978; 93005; 93010; 93306; 93454; 96361; 96374; 99152; 99153; 99285-25; A9270; C1753; C1769; C1887; C1894; J1644; J2250; J2370; J3010; J7030; J7040; Q9967

== ENCOUNTER 2020-05-23 22:00 | Emergency (ER) | payer MEDICARE, OTHER ==
[~2020-05-23] VITALS: Ht 177.8 cm; Wt 72.6 kg
[~2020-05-23 22:00] MED LIST changes: +ATOR40TA PO; +ATORVASTATIN CA20 MG PO; +BISA10S PR; +BISA5EC PO; +DEPAKOTE ER500 MG PO; +METOPROLOL SUCC25 MG PO; +MIRALAX17 GM PO; +NEURONTIN600 MG PO; +PRILOSEC OTC20 MG PO; +SENNA LAXATIVE8.6 MG PO
[2020-05-23 22:35] LABS: BASOPHILS ABSOLUTE AUTO 0.06 K/mm3 (0.00-0.23); BASOPHILS PERCENT AUTO 2 % (0-2); EOSINOPHILS ABSOLUTE AUTO 0.09 K/mm3 (0.00-0.68); EOSINOPHILS PERCENT AUTO 2 % (0-6); Hematocrit 39.5 % (37.0-53.0); Hemoglobin 12.8 g/dL (13.5-17.5); IMMATURE GRAN ABSOLUTE AUTO 0.02 K/mm3 (0.00-0.10); IMMATURE GRAN PERCENT AUTO 1 % (0-1); LYMPHOCYTES ABSOLUTE AUTO 1.42 K/mm3 (0.84-5.20); LYMPHOCYTES PERCENT AUTO 37 % (21-46); MONOCYTES ABSOLUTE AUTO 0.38 K/mm3 (0.16-1.47); MONOCYTES PERCENT AUTO 10 % (4-13); Mean Corpuscular HGB 32.3 pg (26.0-34.0); Mean Corpuscular HGB Conc 32.4 g/dL (31.5-36.5); Mean Corpuscular Volume 100 fL (80-100); Mean Platelet Volume 8.6 fL (9.1-12.4); NEUTROPHILS ABSOLUTE AUTO 1.91 K/mm3 (1.96-9.15); NEUTROPHILS PERCENT AUTO 49 % (41-73); Platelet Count 324 K/mm3 (150-400); RDW Coefficient Variation 12.6 % (11.7-14.2); RDW Standard Deviation 46.5 fL (35.1-46.3); Red Blood Cell Count 3.96 M/mm3 (4.30-5.90); White Blood Cell Count 3.88 K/mm3 (4.00-11.30)
[2020-05-23 22:51] LABS: Alanine Aminotransfer (ALT/SGP 14 U/L (12-78); Albumin, Blood 3.1 g/dL (3.4-5.0); Albumin/Globulin Ratio 0.9 (0.8-1.8); Alk Phos 75 U/L (50-136); Anion Gap 3 mmol/L (6-16); Aspartate Aminotrans (AST/SGOT 14 U/L (12-37); Bilirubin, Total 0.2 mg/dL (0.1-1.0); Blood Urea Nitrogen 26 mg/dL (8-24); Bun/Creatinine Ratio 21.8 (12.0-20.0); CO2, Blood 29 mmol/L (21-32); Calcium, Blood 8.2 mg/dL (8.5-10.1); Chloride, Blood 111 mmol/L (98-108); Creatinine, Blood 1.19 mg/dL (0.60-1.20); Globulin, Blood 3.5 g/dL (2.2-4.0); Glomerular Filtration Rate >60 (60-); Glucose, Blood 94 mg/dL (70-99); Potassium, Blood 4.4 mmol/L (3.5-5.5); Sodium, Blood 143 mmol/L (136-145); Total Protein, Blood 6.6 g/dL (6.4-8.2); Troponin I <0.015 ng/mL (0.000-0.040)
[2020-05-24] MEDS ORDERED: Preservision S1 EACH PO (01:21)
[2020-06-01] MEDS ORDERED: CLOP75 PO (16:18)
== END 2020-05-24 02:12 | disposition home or self-care (01) ==
LOC: ER 22:00
PROVIDERS: Emergency Medicine
DX: R07.9 Chest pain, unspecified (principal)
CPT/HCPCS: 71045; 80053; 84484; 85025; 93005; 93010; 96374; 96375; 99285-25; J2405; J3010

== ENCOUNTER 2020-06-02 07:46 | Inpatient (IN) | payer MEDICARE, OTHER ==
[~2020-06-02] VITALS: Ht 177.8 cm; Wt 74.6 kg
[~2020-06-02 07:46] MED LIST changes: +Preservision S1 EACH PO
--- NOTE | 2020-06-02 18:58 | NUR ---
SHIFT SUMMARY: PT ADMITTED FROM HEART CENTER S/P STENT PLACEMENT. PT HAS RT FEMORAL ACCESS SITE, ARRIVED WITH FEM STOP IN PLACE. FEM STOP REMOVED APPROX 1625, HAS CONTINUED WNL SINCE. PT HOB GRADUALLY RAISED, PT EVENTUALLY OOB WITH FWW TO BSC, TOLERATED WELL. PT IS A&OX4, RESP EVEN AND UNLABORED, SINUS RHYTHM ON MONITOR. PT TO BE NPO AT MIDNIGHT IN PREPARATION FOR RETURN TO [facility]. WILL CONTINUE TO MONITOR AND TREAT UNTIL REPORT GIVEN TO ONCOMING RN.
--- NOTE | 2020-06-02 19:52 | NUR ---
TRANSFER PT TO RM 4 FROM ICU 10 AT 1940. ALL BELONGINGS WITH PT. PT AXO. VSS. DENIES CP CURENTLY. R GROIN SITE PRESENTS STABLEW POST FEMSTOP REMOVAL @ 1624 (PER REPORT). NO HEMATOMA NOTED OR EXCESS REDNESS/BRUISING AT SITE. PT ORIENTED TO ROOM.
--- NOTE | 2020-06-03 04:44 | NUR ---
SHIFT SUMMARY SEE TRANSFER NOTE. NO CHANGES SINCE TRANSFER FROM ICU. STILL AXO, ON RA, SR, VSS. PT STATES SLIGHT DISCOMFORT BUT HAS DENIED SINCE IMDUR GIVEN. R GROIN SITE STABLE, NO NEW HEMATOMA NOTED. PT NPO FOR REPEAT ANGION THIS AM. OTHERWISE, PT RESTING IN BED QUIETELY. USES CALL LIGHT. WILL CONTINUE TO MONITOR UNTIL SHIFT CHANGE.
[2020-06-03 05:00] LABS: BASOPHILS ABSOLUTE AUTO 0.04 K/mm3 (0.00-0.23); BASOPHILS PERCENT AUTO 1 % (0-2); EOSINOPHILS PERCENT AUTO 3 % (0-6); Hematocrit 36.4 % (37.0-53.0); Hemoglobin 12.1 g/dL (13.5-17.5); IMMATURE GRAN ABSOLUTE AUTO 0.01 K/mm3 (0.00-0.10); IMMATURE GRAN PERCENT AUTO 0 % (0-1); LYMPHOCYTES ABSOLUTE AUTO 1.02 K/mm3 (0.84-5.20); LYMPHOCYTES PERCENT AUTO 29 % (21-46); MONOCYTES ABSOLUTE AUTO 0.42 K/mm3 (0.16-1.47); MONOCYTES PERCENT AUTO 12 % (4-13); Mean Corpuscular HGB 32.2 pg (26.0-34.0); Mean Corpuscular HGB Conc 33.2 g/dL (31.5-36.5); Mean Corpuscular Volume 97 fL (80-100); Mean Platelet Volume 8.8 fL (9.1-12.4); NEUTROPHILS ABSOLUTE AUTO 1.93 K/mm3 (1.96-9.15); NEUTROPHILS PERCENT AUTO 55 % (41-73); Platelet Count 316 K/mm3 (150-400); RDW Coefficient Variation 12.5 % (11.7-14.2); RDW Standard Deviation 45.1 fL (35.1-46.3); Red Blood Cell Count 3.76 M/mm3 (4.30-5.90); White Blood Cell Count 3.52 K/mm3 (4.00-11.30)
[2020-06-03 05:24] LABS: Anion Gap 7 mmol/L (6-16); Blood Urea Nitrogen 23 mg/dL (8-24); Bun/Creatinine Ratio 18.9 (12.0-20.0); CO2, Blood 26 mmol/L (21-32); Calcium, Blood 8.3 mg/dL (8.5-10.1); Chloride, Blood 109 mmol/L (98-108); Creatinine, Blood 1.22 mg/dL (0.60-1.20); Glomerular Filtration Rate >60 (60-); Glucose, Blood 81 mg/dL (70-99); Potassium, Blood 4.1 mmol/L (3.5-5.5); Sodium, Blood 142 mmol/L (136-145)
--- NOTE | 2020-06-03 07:15 | NUR ---
R GROIN SITE 0705 UPON SHIFT CHANGE WITH BEDSIDE REPORT, THIS RN AND ALEXANDRE Luque RN NOTICED BLOOD THROUGH SHEETS. SHEETS LIFTED AND IT WAS FOUND THAT PT'S GROIN SITE HAD STARTED TO BLLED. BLOOD SATURATED THROUGH DRESSING, LARGE AMOUNT OF COAGULATED BLOOD NOTED TO SURROUNDING AREA. NO SPURTING BLEEDING NOTED. THIS RN BEGAN TO HOLD PRESSURE TO SITE. PT STATES BEING ASYMPTOMATIC TO THIS AND WAS ASLEEP PRIOR TO THIS. THIS RN HAD JUST CHECKED SITE WITHIN THE LAST 90 MINUTES AND NO NEW HEMATOMA WAS NOTED AT THAT POINT. 0715 DR JOINER TO ROOM TO ASSESS. 500ML BOLUS NS WO ORDERED. ALEXANDRE Luque HANGING MEDICATION ON OVERRIDE FROM PYXIS. VSS INCLUDING BP. PT CONTINUES TO BE ASYMPTOMATIC AT THIS TIME. DR JOINER HOLDING PRESSURE AT THIS TIME.
--- NOTE | 2020-06-03 07:53 | NUR ---
FEM STOP PLACED TO RIGHT GROIN BY DR. JOINER AND INGREDIENT MIXER SHOBHA. BLEEDING CONTROLLED AT THIS TIME. VSS, 500ML BOLUS NS COMPLETE, WILL CONTINUE TO MONITOR. LEAD ARCHITECT IN ROOM DRAWING STAT CBC.
[2020-06-03 08:21] LABS: BASOPHILS ABSOLUTE AUTO 0.05 K/mm3 (0.00-0.23); BASOPHILS PERCENT AUTO 1 % (0-2); EOSINOPHILS PERCENT AUTO 3 % (0-6); Hematocrit 36.1 % (37.0-53.0); IMMATURE GRAN ABSOLUTE AUTO 0.01 K/mm3 (0.00-0.10); IMMATURE GRAN PERCENT AUTO 0 % (0-1); LYMPHOCYTES ABSOLUTE AUTO 0.95 K/mm3 (0.84-5.20); LYMPHOCYTES PERCENT AUTO 24 % (21-46); MONOCYTES ABSOLUTE AUTO 0.46 K/mm3 (0.16-1.47); MONOCYTES PERCENT AUTO 12 % (4-13); Mean Corpuscular HGB 32.4 pg (26.0-34.0); Mean Corpuscular HGB Conc 33.2 g/dL (31.5-36.5); Mean Corpuscular Volume 98 fL (80-100); Mean Platelet Volume 8.8 fL (9.1-12.4); NEUTROPHILS ABSOLUTE AUTO 2.37 K/mm3 (1.96-9.15); NEUTROPHILS PERCENT AUTO 60 % (41-73); Platelet Count 318 K/mm3 (150-400); RDW Coefficient Variation 12.5 % (11.7-14.2); RDW Standard Deviation 45.3 fL (35.1-46.3); White Blood Cell Count 3.94 K/mm3 (4.00-11.30)
[2020-06-03 08:38] LABS: Anion Gap 4 mmol/L (6-16); Blood Urea Nitrogen 23 mg/dL (8-24); CO2, Blood 27 mmol/L (21-32); Chloride, Blood 110 mmol/L (98-108); Creatinine, Blood 1.15 mg/dL (0.60-1.20); Glomerular Filtration Rate >60 (60-); Glucose, Blood 80 mg/dL (70-99); Potassium, Blood 4.2 mmol/L (3.5-5.5); Sodium, Blood 141 mmol/L (136-145)
--- NOTE | 2020-06-03 11:30 | NUR ---
Fem stop removed per verbal orders from physician. VSS. No bleeding noted, no hematoma noted. Pt states that his leg pain is much improved. Call light in reach. Will continue to monitor.
--- NOTE | 2020-06-03 11:41 | NUR ---
Patient is lying in bed and alert. He tells me that he recently had a significant bleed and because of that his surgery will be postponed. 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 Patient also discusses the of his daughter and his and his new of 6yrs. Patient enjoys talking about God, ministry and the state of the roman catholic as a whole. Patient tells me that he has absolute peace about and dying but he would prefer to live a bit longer. I reinforce helpful attitudes and practices and provide companionship and prayer. Patient responds well and shows signs of an elevated mood. I will continue to remain available to patient and family.
--- NOTE | 2020-06-03 12:30 | NUR ---
Update: Pt states that he was having 10/10 chest pressure and that he needed his nitro. When this RN came into room Pt states that the pain is starting to subside and now rates it a 5/10. BP stable. No changes noted on Tele. EKG done. SL nitro given per orders. Will notify physician
--- NOTE | 2020-06-03 12:44 | NUR ---
After 2nd nitro tablet pt pain decreased down to a 2/10. BP decreased to 82/47. Will not give the 3rd nitro. Pt states that he feels like he needs to use the bathroom. Bedpan to be used at this time r/t bp, cp and groin site issues this am
--- NOTE | 2020-06-03 17:42 | NUR ---
SHIFT SUMMARY; A/A/OX4 THROUGHOUT DAY. BLEEDING SUBSIDED TO RIGHT GROIN SITE AFTER FEM STOP PLACEMENT IN AM. FREQUENT MONITORING OF RIGHT LEG AND AND GROIN SITE. RIGHT PEDAL PULSE REMAINS PALPABLE, TEGADERM DRESSING IN PLACE. REPOSITIONS SELF IN BED NEEDED. USES URINAL AT BEDSIDE WITHOUT DIFFICULTY. VSS, NS INFUSING AT 75ML/HR, WILL CONTINUE TO TREAT AND MONITOR UNTIL CHANGE OF SHIFT.
[2020-06-04 04:34] LABS: BASOPHILS ABSOLUTE AUTO 0.04 K/mm3 (0.00-0.23); BASOPHILS PERCENT AUTO 1 % (0-2); EOSINOPHILS ABSOLUTE AUTO 0.12 K/mm3 (0.00-0.68); EOSINOPHILS PERCENT AUTO 3 % (0-6); Hematocrit 33.9 % (37.0-53.0); Hemoglobin 11.3 g/dL (13.5-17.5); IMMATURE GRAN ABSOLUTE AUTO 0.01 K/mm3 (0.00-0.10); IMMATURE GRAN PERCENT AUTO 0 % (0-1); LYMPHOCYTES ABSOLUTE AUTO 1.18 K/mm3 (0.84-5.20); LYMPHOCYTES PERCENT AUTO 26 % (21-46); MONOCYTES ABSOLUTE AUTO 0.56 K/mm3 (0.16-1.47); MONOCYTES PERCENT AUTO 12 % (4-13); Mean Corpuscular HGB 32.2 pg (26.0-34.0); Mean Corpuscular HGB Conc 33.3 g/dL (31.5-36.5); Mean Corpuscular Volume 97 fL (80-100); Mean Platelet Volume 8.7 fL (9.1-12.4); NEUTROPHILS ABSOLUTE AUTO 2.66 K/mm3 (1.96-9.15); NEUTROPHILS PERCENT AUTO 58 % (41-73); Platelet Count 301 K/mm3 (150-400); RDW Coefficient Variation 12.6 % (11.7-14.2); Red Blood Cell Count 3.51 M/mm3 (4.30-5.90); White Blood Cell Count 4.57 K/mm3 (4.00-11.30)
[2020-06-04 05:01] LABS: Anion Gap 6 mmol/L (6-16); Blood Urea Nitrogen 18 mg/dL (8-24); Bun/Creatinine Ratio 15.5 (12.0-20.0); CO2, Blood 26 mmol/L (21-32); Calcium, Blood 8.3 mg/dL (8.5-10.1); Chloride, Blood 110 mmol/L (98-108); Creatinine, Blood 1.16 mg/dL (0.60-1.20); Glomerular Filtration Rate >60 (60-); Glucose, Blood 86 mg/dL (70-99); Potassium, Blood 4.1 mmol/L (3.5-5.5); Sodium, Blood 142 mmol/L (136-145)
--- NOTE | 2020-06-04 05:14 | NUR ---
SHIFT SUMMARY NO ACUTE CHANGES THIS SHIFT. VSS. AXO. ON RA. IN SR. SPORADIC CP BUT IMDUR SUCCESFUL AT SIGNIFICANTLY LESSENING THIS. EKG THIS AM DOES NOT SHOW ANY EKG CHANGES. R GROIN SITE HAS STABLE HEMATOMA ABOVE ACCESS SITE THAT WAS PRESENT PRESHIFT START. NO GROWTH OR CHANGE TO THIS. DRESSING CDI. FLUIDS INFUSING PER EMAR. PT USING CALL LIGHT APPROPRIATELY.RESTING OFF AND ON. WILL CONTINUE TO MONITOR UNTIL SHIFT CHANGE.
[2020-06-04] MEDS ORDERED: Isosorbide Mono60 MG PO (10:32)
[2020-06-04] MEDS ORDERED: RANO500T PO (10:33)
== END 2020-06-04 12:04 | disposition home or self-care (01) | DRG 247 ==
LOC: MHTC 07:46 → ICUW 12:28 → MHTC 12:38 → ICUW 12:38 → PCU 19:38
PROVIDERS: ADMIT Internal Medicine Cardiovascular Disease
PROC: 027034Z Dilation of Coronary Artery, One Artery with Drug-eluting Intraluminal Device, Percutaneous Approach (ICD-10-PCS; principal; 2020-06-02)
PROC: 4A023N7 Measurement of Cardiac Sampling and Pressure, Left Heart, Percutaneous Approach (ICD-10-PCS; 2020-06-02)
PROC: B2111ZZ Fluoroscopy of Multiple Coronary Arteries using Low Osmolar Contrast (ICD-10-PCS; 2020-06-02)
PROC: B240ZZ3 Ultrasonography of Single Coronary Artery, Intravascular (ICD-10-PCS; 2020-06-02)
DX: I25.110 Atherosclerotic heart disease of native coronary artery with unstable angina pectoris (principal); K20.80 Other esophagitis without bleeding; M19.90 Unspecified osteoarthritis, unspecified site; K21.9 Gastro-esophageal reflux disease without esophagitis; I10 Essential (primary) hypertension; E78.5 Hyperlipidemia, unspecified; G47.00 Insomnia, unspecified; Z90.49 Acquired absence of other specified parts of digestive tract; Z98.890 Other specified postprocedural states; Z95.5 Presence of coronary angioplasty implant and graft; Z79.82 Long term (current) use of aspirin; Z79.02 Long term (current) use of antithrombotics/antiplatelets; Z79.899 Other long term (current) drug therapy; Z88.5 Allergy status to narcotic agent; Z88.0 Allergy status to penicillin
CPT/HCPCS: 36415; 76937; 80048; 85025; 85347; 85610; 92978; 93005; 93010; 93454; 93571; 99152; 99153; A9270; C1725; C1753; C1760; C1769; C1874; C1887; C1894; C9600; J1644; J1650; J2250; J2370; J3010; J7030; J7040; J7050; Q9967; U0003

== ENCOUNTER 2020-06-21 17:28 | Inpatient (IN) | payer MEDICARE, OTHER ==
[~2020-06-21] VITALS: Ht 177.8 cm; Wt 76.2 kg
[~2020-06-21 17:28] MED LIST changes: +Isosorbide Mono60 MG PO; +RANO500T PO
[2020-06-21] MEDS ORDERED: PANT40 PO (18:17)
[2020-06-21 18:47] LABS: Alanine Aminotransfer (ALT/SGP 15 U/L (12-78); Albumin, Blood 3.2 g/dL (3.4-5.0); Albumin/Globulin Ratio 0.9 (0.8-1.8); Alk Phos 77 U/L (50-136); Anion Gap 4 mmol/L (6-16); Aspartate Aminotrans (AST/SGOT 12 U/L (12-37); Bilirubin, Total 0.3 mg/dL (0.1-1.0); Blood Urea Nitrogen 23 mg/dL (8-24); Bun/Creatinine Ratio 16.5 (12.0-20.0); CO2, Blood 27 mmol/L (21-32); Calcium, Blood 7.6 mg/dL (8.5-10.1); Chloride, Blood 109 mmol/L (98-108); Creatinine, Blood 1.39 mg/dL (0.60-1.20); Globulin, Blood 3.6 g/dL (2.2-4.0); Glomerular Filtration Rate 52 (60-); Glucose, Blood 113 mg/dL (70-99); Potassium, Blood 4.2 mmol/L (3.5-5.5); Sodium, Blood 140 mmol/L (136-145); Total Protein, Blood 6.8 g/dL (6.4-8.2); Troponin I <0.015 ng/mL (0.000-0.040)
[2020-06-21 18:51] LABS: BASOPHILS ABSOLUTE AUTO 0.04 K/mm3 (0.00-0.23); BASOPHILS PERCENT AUTO 1 % (0-2); EOSINOPHILS ABSOLUTE AUTO 0.07 K/mm3 (0.00-0.68); EOSINOPHILS PERCENT AUTO 2 % (0-6); Hematocrit 39.9 % (37.0-53.0); Hemoglobin 13.2 g/dL (13.5-17.5); IMMATURE GRAN PERCENT AUTO 0 % (0-1); LYMPHOCYTES ABSOLUTE AUTO 0.95 K/mm3 (0.84-5.20); LYMPHOCYTES PERCENT AUTO 31 % (21-46); MONOCYTES ABSOLUTE AUTO 0.31 K/mm3 (0.16-1.47); MONOCYTES PERCENT AUTO 10 % (4-13); Mean Corpuscular HGB 32.3 pg (26.0-34.0); Mean Corpuscular HGB Conc 33.1 g/dL (31.5-36.5); Mean Corpuscular Volume 98 fL (80-100); Mean Platelet Volume 8.6 fL (9.1-12.4); NEUTROPHILS ABSOLUTE AUTO 1.72 K/mm3 (1.96-9.15); NEUTROPHILS PERCENT AUTO 56 % (41-73); Platelet Count 266 K/mm3 (150-400); RDW Coefficient Variation 12.9 % (11.7-14.2); RDW Standard Deviation 46.1 fL (35.1-46.3); Red Blood Cell Count 4.09 M/mm3 (4.30-5.90); White Blood Cell Count 3.09 K/mm3 (4.00-11.30)
[2020-06-21] MEDS ORDERED: FLUOROURACIL30 G2 TOP (21:21)
--- NOTE | 2020-06-21 23:01 | NUR ---
84 YR OLD MALE ADMITTED TO FLOOR FROM THE ED WITH DX OF CHEAT PAIN. CURRENLY SLIGHT CHEST PAIN, STATED TOOK NITOR AT HOME AND IT WAS EFFECTIVE. ORIENTED TO CALL LIGHT. CALL LIGHT IN REACH.
--- NOTE | 2020-06-22 00:07 | NUR ---
[place] SCORE 85, BED ALARM ON, CALL LIGHT IN REACH. AGREED TO UES CALL LIGHT IF NEEDS TO GET OUT OF BED.
--- NOTE | 2020-06-22 03:04 | NUR ---
SHIFT SUMMARY WAS ADMITTED EARLIER WITH DX OF CHEST PAIN. VOICED CHEST PAIN AT MINIMUM EARLIER, HAS BEEN RESTING QUIETLY WITHOUT VOICED CONCERNS OR NOTED S/S ACUTE DISTRESS SINCE ADMISSION. CALL LIGHT IN REACH. WILL CONTINUE TO MONITOR
[2020-06-22 05:00] LABS: BASOPHILS ABSOLUTE AUTO 0.05 K/mm3 (0.00-0.23); BASOPHILS PERCENT AUTO 2 % (0-2); EOSINOPHILS PERCENT AUTO 3 % (0-6); Hematocrit 39.1 % (37.0-53.0); Hemoglobin 13.1 g/dL (13.5-17.5); IMMATURE GRAN PERCENT AUTO 0 % (0-1); LYMPHOCYTES ABSOLUTE AUTO 1.56 K/mm3 (0.84-5.20); LYMPHOCYTES PERCENT AUTO 52 % (21-46); MONOCYTES ABSOLUTE AUTO 0.27 K/mm3 (0.16-1.47); MONOCYTES PERCENT AUTO 9 % (4-13); Mean Corpuscular HGB Conc 33.5 g/dL (31.5-36.5); Mean Corpuscular Volume 99 fL (80-100); Mean Platelet Volume 8.7 fL (9.1-12.4); NEUTROPHILS ABSOLUTE AUTO 1.03 K/mm3 (1.96-9.15); NEUTROPHILS PERCENT AUTO 34 % (41-73); Platelet Count 238 K/mm3 (150-400); RDW Coefficient Variation 12.9 % (11.7-14.2); Red Blood Cell Count 3.97 M/mm3 (4.30-5.90); White Blood Cell Count 3.01 K/mm3 (4.00-11.30)
[2020-06-22 05:21] LABS: Anion Gap 6 mmol/L (6-16); Blood Urea Nitrogen 21 mg/dL (8-24); Bun/Creatinine Ratio 17.1 (12.0-20.0); CO2, Blood 25 mmol/L (21-32); Chloride, Blood 111 mmol/L (98-108); Creatinine, Blood 1.23 mg/dL (0.60-1.20); Glomerular Filtration Rate 60 (60-); Glucose, Blood 77 mg/dL (70-99); Potassium, Blood 4.4 mmol/L (3.5-5.5); Sodium, Blood 142 mmol/L (136-145); Troponin I <0.015 ng/mL (0.000-0.040)
[2020-06-22 08:42] LABS: Influenza A, PCR NEGATIVE (NEGATIVE); Influenza B, PCR NEGATIVE (NEGATIVE); Resp Syncytial Virus, PCR NEGATIVE (NEGATIVE); SARS-Cov-2 (COVID-19) PCR, MMC NEGATIVE (NEGATIVE)
--- NOTE | 2020-06-22 12:15 | NUR ---
GOT A CALL FROM JEFF JOHNSON (ADVERTISER) AND HE STATES CARDIAC PROCEDURE IS GOING TO BE TOMORROW MORNING. CALLED DR VILLAR, HE STATES IT IS OK TO GIVE PT FOOD. NPO MN
--- NOTE | 2020-06-22 18:11 | NUR ---
PT COMPLAINING OF SEVERE CHEST PAIN AN HOUR AGO, DR VILLAR AND DR JOINER (CARDS) AT BEDSIDE DURING EPISODE. NITRO GIVEN X3 TO GOOD EFFECT. VSS
--- NOTE | 2020-06-22 18:57 | NUR ---
SHIFT SUMMARY BRIAN HAD LITTLE CHEST PAIN THIS SHIFT UNTIL LATE AFTERNOON. DR VILLAR AND DR JOINER AWARE. NITRO GIVEN X3 AND IV FENTANYL X1 TO GOOD EFFECT. TELE SHOWED NSR. CONTINENT IN BR, SBA TO BR. COVID SWAB SETN OFF. ECHO DONE PER PT. NPO MN FOR CARDIAC CATH. VISITED. CALL LIGHT IN REACH, WCTM
--- NOTE | 2020-06-23 04:30 | NUR ---
SHIFT SUMMARY PT CONTINUED TO HAVE SOME MID STERNAL CHEST PAIN BUT REPORTED THE PAIN TO BE TOLERABLE TO RESOLVED WITH PO NITRO AND IV FENTANYL GIVEN BY DAY RN. PT SLEPT OFF AND ON THROUGHOUT THE NIGHT. NPO SINCE MIDNIGHT EXCEPT MORNING PROTONIX FOR PROCEDURE IN AGRICULTURAL ADVISER TODAY. TELEMETRY SHOWING SR IN THE 60'S. PT WALKED TO RESTROOM WITH HOME CANE. STEADY ON HIS FEET, SLOW MOVING DUE TO NEUROPATHY IN BILATERAL FEET. NO ACUTE CHANGES THIS EVENING. VITAL SIGNS STABLE. WILL CONTINUE TO MONITOR.
[2020-06-23 05:17] LABS: International Normalized Ratio 0.98; Prothrombin Time Results 10.5 Sec (9.7-11.5)
[2020-06-23 05:33] LABS: Anion Gap 5 mmol/L (6-16); Blood Urea Nitrogen 20 mg/dL (8-24); Bun/Creatinine Ratio 17.5 (12.0-20.0); CO2, Blood 26 mmol/L (21-32); Calcium, Blood 7.3 mg/dL (8.5-10.1); Chloride, Blood 110 mmol/L (98-108); Creatinine, Blood 1.14 mg/dL (0.60-1.20); Glomerular Filtration Rate >60 (60-); Glucose, Blood 72 mg/dL (70-99); Potassium, Blood 4.5 mmol/L (3.5-5.5); Sodium, Blood 141 mmol/L (136-145)
[2020-06-23 08:36] LABS: CHOL/HDL RATIO 2.9; Cholesterol 105 mg/dL (50-200); HDL Cholesterol 36 mg/dL (>39); LDL/HDL RATIO 1.1; Low Density Lipoprotein Chol 40 mg/dL (0-110); Triglycerides 143 mg/dL (30-160); Very Low Density Lipoprot Chol 28 mg/dL (6-32)
--- NOTE | 2020-06-23 12:47 | NUR ---
PT LEFT MEDICAL FLOOR AROUND 10AM FOR CARDIAC CATH, TO ICU 3 AFTERWARDS, REPORT GIVEN TO SHERI PROCESSING ASSOCIATE
--- NOTE | 2020-06-23 13:45 | NUR ---
PT RECIEVED FROM RECREATION FACILITY ATTENDANT. FEMSTOP TO LEFT GROIN @140, ANGIO SEAL IN PLACE ON RIGHT GROIN. PULSES PALPABLE IN BILATERAL PEDAL AND TIBIAL. NEW IV IN RIGHT FOREARM, NOT CHARTED BY RECREATION FACILITY ATTENDANT. AT BEDSIDE.
--- NOTE | 2020-06-24 05:08 | NUR ---
SHIFT SUMMARY NO ACUTE CHANGES THIS SHIFT. PT A&OX4. SP02>92% ON 2LNC. TELEMETRY READS SR, HR 70'S. PT USED URINAL AT BEDSIDE MULTIPLE TIMES DURING SHIFT. PT C/O OF 11/01 CHRONIC BACK PAIN WELL BILAT GROIN SITE PAIN. MEDICATED W/ TYLENOL PER EMAR X2 THIS SHIFT. BILAT GROIN SITES BOTH SOFT, MODERATE AMOUNT OF DRIED BLOOD ON TEGADERM UPON CARE ASSUMPTION, BUT DID NOT PROGRESS/INCREASE. PT SLEPT T/O NIGHT. STATED THIS MORNING HE SLEPT "REALLY WELL". CALL LIGHT IN REACH. WILL GIVE REPORT TO ONCOMING NURSE.
--- NOTE | 2020-06-24 08:00 | NUR ---
PT SITTING UP IN THE CHAIR EATING BREAKFAST, A/OX3, PLEASANT AND COOPERATIVE WITH CARE, FOLLOWS COMMANDS WELL, DENIES COMPLAINTS STATES HE FEELS ROUGH LIKE HE'S BEEN PICKED ON, BUT CAN'T DEFIN ANYTHING SPECIFIC, LUNGS ARE CLEAR BUT DIM T/O, RESP EVEN AND UNLABORED, NO COUGH NOTED, HRR, TELE IN PLACE RUNNING SR PER MONITOR, SEE STRIP, TRACE EDEMA NOTED TO RIGHT LOWER EXT, PPP+1, CAP REFILL <3SEC, VS STABLE, AFEBRILE, IV SITES ARE CLEAR AND PATENT, BTX4, ABD FLAT SOFT NONTENDER, VOIDS WITHOUT DIFF, SKIN C/W/D, MAAARON WEEKS, CALL LIGHT IN REACH. CARDIOLOGY IN TO SEE HIM THIS AM, WANTS PT/OT ORDERED TO EVAL IF CAN GO HOME, AND CAN BE DISCHARGED FROM HIS STANDPOINT, CALL LIGHT IN REACH.
[2020-06-24 11:56] LABS: BASOPHILS ABSOLUTE AUTO 0.03 K/mm3 (0.00-0.23); BASOPHILS PERCENT AUTO 1 % (0-2); EOSINOPHILS ABSOLUTE AUTO 0.09 K/mm3 (0.00-0.68); EOSINOPHILS PERCENT AUTO 2 % (0-6); Hematocrit 39.2 % (37.0-53.0); Hemoglobin 12.7 g/dL (13.5-17.5); IMMATURE GRAN ABSOLUTE AUTO 0.03 K/mm3 (0.00-0.10); IMMATURE GRAN PERCENT AUTO 1 % (0-1); LYMPHOCYTES ABSOLUTE AUTO 0.95 K/mm3 (0.84-5.20); LYMPHOCYTES PERCENT AUTO 19 % (21-46); MONOCYTES ABSOLUTE AUTO 0.53 K/mm3 (0.16-1.47); MONOCYTES PERCENT AUTO 11 % (4-13); Mean Corpuscular HGB 32.2 pg (26.0-34.0); Mean Corpuscular HGB Conc 32.4 g/dL (31.5-36.5); Mean Corpuscular Volume 100 fL (80-100); Mean Platelet Volume 8.7 fL (9.1-12.4); NEUTROPHILS ABSOLUTE AUTO 3.39 K/mm3 (1.96-9.15); NEUTROPHILS PERCENT AUTO 68 % (41-73); Platelet Count 266 K/mm3 (150-400); RDW Coefficient Variation 12.7 % (11.7-14.2); Red Blood Cell Count 3.94 M/mm3 (4.30-5.90); White Blood Cell Count 5.02 K/mm3 (4.00-11.30)
[2020-06-24 12:11] LABS: Anion Gap 4 mmol/L (6-16); Blood Urea Nitrogen 16 mg/dL (8-24); Bun/Creatinine Ratio 15.2 (12.0-20.0); CO2, Blood 25 mmol/L (21-32); Calcium, Blood 7.1 mg/dL (8.5-10.1); Chloride, Blood 110 mmol/L (98-108); Creatinine, Blood 1.05 mg/dL (0.60-1.20); Glomerular Filtration Rate >60 (60-); Glucose, Blood 92 mg/dL (70-99); Potassium, Blood 4.4 mmol/L (3.5-5.5); Sodium, Blood 139 mmol/L (136-145)
--- NOTE | 2020-06-24 16:10 | NUR ---
PT HAS BEEN DISCHARGED TO HOME, WENT OVER DISCHARGE INSTRUCTIONS, IV X2 REMOVERD INTACT, CALLED ABOUT CARDIAC REHAB TO GET RESCHEDULED, PT HAS ALL HIS BELONGINGS, NO NEW MEDICATIONS. LEFT VIA WHEELCHAIR WITH SLICE PLUG CUTTER OPERATOR IN ATTENDENCE, HERE TO TAKE HIM HOME.
== END 2020-06-24 16:08 | disposition home or self-care (01) | DRG 215 ==
LOC: ER 17:28 → MEDS 17:29 → ER 17:30 → PCU 17:30 → MEDS 17:30 → ICUE 06-23 12:00 → MEDS 06-23 12:00 → PCU 06-23 15:10 → ICUE 06-23 15:10 → PCU 06-23 18:48 → ICUE 06-23 18:48 → PCU 06-24 16:08
PROVIDERS: Internal Medicine Cardiovascular Disease; Physician Assistant; ADMIT Family Medicine
PROC: 5A0221D Assistance with Cardiac Output using Impeller Pump, Continuous (ICD-10-PCS; principal; 2020-06-23)
PROC: 02HA3RJ Insertion of Short-term External Heart Assist System into Heart, Intraoperative, Percutaneous Approach (ICD-10-PCS; 2020-06-23)
PROC: 027034Z Dilation of Coronary Artery, One Artery with Drug-eluting Intraluminal Device, Percutaneous Approach (ICD-10-PCS; 2020-06-23)
PROC: 02703ZZ Dilation of Coronary Artery, One Artery, Percutaneous Approach (ICD-10-PCS; 2020-06-23)
PROC: B240ZZ3 Ultrasonography of Single Coronary Artery, Intravascular (ICD-10-PCS; 2020-06-23)
PROC: 4A033BC Measurement of Arterial Pressure, Coronary, Percutaneous Approach (ICD-10-PCS; 2020-06-23)
DX: I25.110 Atherosclerotic heart disease of native coronary artery with unstable angina pectoris (principal); N17.9 Acute kidney failure, unspecified; Z79.82 Long term (current) use of aspirin; Z79.02 Long term (current) use of antithrombotics/antiplatelets; Z20.822 Contact with and (suspected) exposure to COVID-19; Z95.5 Presence of coronary angioplasty implant and graft; I12.9 Hypertensive chronic kidney disease with stage 1 through stage 4 chronic kidney disease, or unspecified chronic kidney disease; N18.30 Chronic kidney disease, stage 3 unspecified; K21.9 Gastro-esophageal reflux disease without esophagitis; Z66 Do not resuscitate; G62.9 Polyneuropathy, unspecified
CPT/HCPCS: 0241U; 33990; 36415; 71046; 75716; 76937; 80048; 80053; 80061; 84484; 85025; 85347; 85610; 92920; 92978; 93005; 93010; 93308; 93321; 93454; 93571; 93572; 97116; 97162; 97165; 97530; 97535; 99152; 99153; 99283-25; A9270; C1725; C1753; C1760; C1769; C1874; C1887; C1894; C9600; J0690; J1644; J1650; J2250; J2370; J2405; J3010; J7030; J7040; J7050; J7060; Q9967

== ENCOUNTER 2020-08-04 20:11 | Inpatient (IN) | payer MEDICARE, OTHER ==
[~2020-08-04] VITALS: Ht 177.8 cm; Wt 76.7 kg
[~2020-08-04 20:11] MED LIST changes: +FLUOROURACIL30 G2 TOP; +PANT40 PO
[2020-08-04 20:48] LABS: BASOPHILS ABSOLUTE AUTO 0.07 K/mm3 (0.00-0.23); BASOPHILS PERCENT AUTO 1 % (0-2); EOSINOPHILS ABSOLUTE AUTO 0.07 K/mm3 (0.00-0.68); EOSINOPHILS PERCENT AUTO 1 % (0-6); Hematocrit 40.2 % (37.0-53.0); Hemoglobin 13.3 g/dL (13.5-17.5); IMMATURE GRAN ABSOLUTE AUTO 0.01 K/mm3 (0.00-0.10); IMMATURE GRAN PERCENT AUTO 0 % (0-1); LYMPHOCYTES ABSOLUTE AUTO 1.57 K/mm3 (0.84-5.20); LYMPHOCYTES PERCENT AUTO 26 % (21-46); MONOCYTES ABSOLUTE AUTO 0.52 K/mm3 (0.16-1.47); MONOCYTES PERCENT AUTO 9 % (4-13); Mean Corpuscular HGB 32.4 pg (26.0-34.0); Mean Corpuscular HGB Conc 33.1 g/dL (31.5-36.5); Mean Corpuscular Volume 98 fL (80-100); Mean Platelet Volume 8.6 fL (9.1-12.4); NEUTROPHILS ABSOLUTE AUTO 3.74 K/mm3 (1.96-9.15); NEUTROPHILS PERCENT AUTO 62 % (41-73); Platelet Count 397 K/mm3 (150-400); RDW Coefficient Variation 12.7 % (11.7-14.2); RDW Standard Deviation 46.4 fL (35.1-46.3); White Blood Cell Count 5.98 K/mm3 (4.00-11.30)
[2020-08-04 21:08] LABS: Alanine Aminotransfer (ALT/SGP 20 U/L (12-78); Albumin, Blood 3.6 g/dL (3.4-5.0); Alk Phos 71 U/L (50-136); Anion Gap 4 mmol/L (6-16); Aspartate Aminotrans (AST/SGOT 19 U/L (12-37); Bilirubin, Total 0.2 mg/dL (0.1-1.0); Blood Urea Nitrogen 28 mg/dL (8-24); Bun/Creatinine Ratio 18.2 (12.0-20.0); CO2, Blood 26 mmol/L (21-32); Calcium, Blood 8.2 mg/dL (8.5-10.1); Chloride, Blood 108 mmol/L (98-108); Creatinine, Blood 1.54 mg/dL (0.60-1.20); Globulin, Blood 3.5 g/dL (2.2-4.0); Glomerular Filtration Rate 46 (60-); Glucose, Blood 140 mg/dL (70-99); Potassium, Blood 4.5 mmol/L (3.5-5.5); Sodium, Blood 138 mmol/L (136-145); Total Protein, Blood 7.1 g/dL (6.4-8.2); Troponin I <0.015 ng/mL (0.000-0.040)
[2020-08-05] MEDS ORDERED: MEGE40T PO (00:15)
[2020-08-05] MEDS ORDERED: DIFLUCAN100 MG PO (00:16)
[2020-08-05] MEDS ORDERED: ALUMINUM H320 MG/5 M (00:17)
[2020-08-05] MEDS ORDERED: NIFE10 PO (00:18)
[2020-08-05] MEDS ORDERED: ASCO500 PO (00:19)
[2020-08-05] MEDS ORDERED: VITAMIN D31000 UNI1 PO (00:20)
[2020-08-05] MEDS ORDERED: RANEXA500 MG PO (00:21)
[2020-08-05 04:57] LABS: BASOPHILS ABSOLUTE AUTO 0.08 K/mm3 (0.00-0.23); BASOPHILS PERCENT AUTO 2 % (0-2); EOSINOPHILS ABSOLUTE AUTO 0.07 K/mm3 (0.00-0.68); EOSINOPHILS PERCENT AUTO 2 % (0-6); Hematocrit 41.8 % (37.0-53.0); Hemoglobin 13.7 g/dL (13.5-17.5); IMMATURE GRAN ABSOLUTE AUTO 0.01 K/mm3 (0.00-0.10); IMMATURE GRAN PERCENT AUTO 0 % (0-1); LYMPHOCYTES ABSOLUTE AUTO 1.73 K/mm3 (0.84-5.20); LYMPHOCYTES PERCENT AUTO 36 % (21-46); MONOCYTES ABSOLUTE AUTO 0.42 K/mm3 (0.16-1.47); MONOCYTES PERCENT AUTO 9 % (4-13); Mean Corpuscular HGB 32.2 pg (26.0-34.0); Mean Corpuscular HGB Conc 32.8 g/dL (31.5-36.5); Mean Corpuscular Volume 98 fL (80-100); Mean Platelet Volume 8.6 fL (9.1-12.4); NEUTROPHILS ABSOLUTE AUTO 2.49 K/mm3 (1.96-9.15); NEUTROPHILS PERCENT AUTO 52 % (41-73); Platelet Count 341 K/mm3 (150-400); RDW Coefficient Variation 12.9 % (11.7-14.2); RDW Standard Deviation 46.4 fL (35.1-46.3); Red Blood Cell Count 4.25 M/mm3 (4.30-5.90)
[2020-08-05 05:23] LABS: Alanine Aminotransfer (ALT/SGP 19 U/L (12-78); Albumin, Blood 3.3 g/dL (3.4-5.0); Albumin/Globulin Ratio 0.9 (0.8-1.8); Alk Phos 64 U/L (50-136); Anion Gap 5 mmol/L (6-16); Aspartate Aminotrans (AST/SGOT 14 U/L (12-37); Bilirubin, Total 0.3 mg/dL (0.1-1.0); Blood Urea Nitrogen 25 mg/dL (8-24); Bun/Creatinine Ratio 18.2 (12.0-20.0); CO2, Blood 25 mmol/L (21-32); CPK Creatine Kinase 69 U/L (39-308); Calcium, Blood 8.3 mg/dL (8.5-10.1); Chloride, Blood 109 mmol/L (98-108); Creatinine, Blood 1.37 mg/dL (0.60-1.20); Globulin, Blood 3.5 g/dL (2.2-4.0); Glomerular Filtration Rate 53 (60-); Glucose, Blood 99 mg/dL (70-99); Potassium, Blood 4.9 mmol/L (3.5-5.5); Sodium, Blood 139 mmol/L (136-145); Total Protein, Blood 6.8 g/dL (6.4-8.2); Troponin I <0.015 ng/mL (0.000-0.040)
--- NOTE | 2020-08-05 05:47 | NUR ---
RN CASE MANAGEMENT SUMMARY NEW ADMIT FROM THE ED TONIGHT. PT ADMITTED FOR CP. TROPONINS NEGATIVE THUS FAR. PT DENIES CP SINCE ARRIVING TO UNIT. NSR IN THE 70'S. PT AAOX4 AND INDEPENDENT IN ROOM. WILL CONTINUE TO MONITOR.
--- NOTE | 2020-08-05 07:53 | NUR ---
c/p THIS AM THE PT REPORTED C/P IN THE LEFT CHEST RADIATING DOWN HIS ARM WITH INTERMITTEN INTENSITY, VS TAKEN WNL, ACCORDING TO TELE THE PT WAS SINUS RYTHM WITHIN THE 60'S, THE PT WAS GIVEN 2 NITRO SL AFTER THE 2ND DOSE THE PT REPORTED THAT THE PAIN WAS DISAPATING, THE PT WAS ALSO GIVEN AMPHOGEL 10ML, AN EKG WAS DONE WICH SHOWED SINUS RYTHM WITH MULTPLE PVC'S, DR. MORALES CAME TO SEE THE PT
[2020-08-05 12:03] LABS: SARS-Cov-2 (COVID-19) PCR, MMC NEGATIVE (NEGATIVE)
[2020-08-05 12:50] LABS: CPK Creatine Kinase 66 U/L (39-308); Troponin I <0.015 ng/mL (0.000-0.040)
--- NOTE | 2020-08-05 13:23 | NUR ---
PT TRANSFER PT TAKEN TO THE [facility] FOR ANGIOGRAM, PT WAS A/OX4, PT APPEARED TO BE BREATHING EASILY AT THE TIME OF TRANSFER, REPORT WAS GIVEN TO RUSTY DIRECTOR OF NEUROLOGY
--- NOTE | 2020-08-05 15:31 | NUR ---
PHYSICIAN NOTIFIED ICY HOT PATCH ORDERED, PT REPORTS ALLERGY TO ADHESIVE. PHYSICIAN NOTIFIED. BENGAY ORDERED PER PHYSICIAN, SEE EMAR.
--- NOTE | 2020-08-05 16:05 | NUR ---
UPDATE REPORT RECIEVED FROM BRANDYN GRULLON AT BEDSIDE. VS STABLE. L GROIN SITE HAS SMALL AMOUNT OF BLOOD ON DRESSING. DRESSING MARKED WITH PERMANENT MARKER TO REFERENCE DRAINAGE. R RADIAL SITE WNL. TR BAND IN PLACE. PT'S UPDATED ON PT'S STATUS. WILL CONTINUE TO MONITOR.
--- NOTE | 2020-08-05 17:38 | NUR ---
PHYSICIAN UPDATED PT BEGAN TO SATURATE L FEMORAL SITE DRESSING. THIS RN HELD PRESSURE FOR 15 MIN. BRANDYN YEAGER REPLACED DRESSING WITH LOBO DRESSING. OOZING IS CONTAINED TO QUARTER SIZE ON DRESSING. PERMANENT MARKER SURROUNDING SITE OF BLOOD ON DRESSING. WILL CONTINUE TO MONITOR. PHYSICIAN NOTIFIED. NO NEW ORDERS.
--- NOTE | 2020-08-05 18:20 | NUR ---
SHIFT SUMMARY PT ARRIVED TO UNIT FROM DURING SHIFT. POST OP VITAL SIGNS STABLE. R FEMORAL SITE BLED THROUGH DRESSING. PRESSURE HELD FOR 15 MIN, LOBO DRESSING APPLIED. DRESSING NOW C/D/I. NO MORE BLEEDING. PT LYING FLAT. R RADIAL SITE WNL. TR BAND IN PLACE. 4 ML OF AIR REMOVED THIS SHIFT. PT HAS NO IV ACCESS. MULTIPLE RN'S ATTEMPTING TO PLACE ACCESS. PHYSICIAN AWARE. PT REPORTS CHEST PAIN 6/10. 1 NITRO GIVEN. PT REPROTS PAIN A 2/10. HR STABLE. BP STABLE. OXYGEN SATURATION MAINTAINED ABOVE 92% ON RA. WILL CONTINUE TO MONITOR UNTIL REPORT GIVEN TO NIGHTSHIFT RN.
[2020-08-06 04:55] LABS: BASOPHILS ABSOLUTE AUTO 0.06 K/mm3 (0.00-0.23); BASOPHILS PERCENT AUTO 1 % (0-2); EOSINOPHILS ABSOLUTE AUTO 0.11 K/mm3 (0.00-0.68); EOSINOPHILS PERCENT AUTO 2 % (0-6); IMMATURE GRAN ABSOLUTE AUTO 0.01 K/mm3 (0.00-0.10); IMMATURE GRAN PERCENT AUTO 0 % (0-1); LYMPHOCYTES ABSOLUTE AUTO 1.45 K/mm3 (0.84-5.20); LYMPHOCYTES PERCENT AUTO 28 % (21-46); MONOCYTES PERCENT AUTO 10 % (4-13); Mean Corpuscular HGB 32.1 pg (26.0-34.0); Mean Corpuscular HGB Conc 32.5 g/dL (31.5-36.5); Mean Corpuscular Volume 99 fL (80-100); Mean Platelet Volume 8.8 fL (9.1-12.4); NEUTROPHILS ABSOLUTE AUTO 3.15 K/mm3 (1.96-9.15); NEUTROPHILS PERCENT AUTO 60 % (41-73); Platelet Count 360 K/mm3 (150-400); RDW Coefficient Variation 12.7 % (11.7-14.2); RDW Standard Deviation 45.8 fL (35.1-46.3); Red Blood Cell Count 4.05 M/mm3 (4.30-5.90); White Blood Cell Count 5.28 K/mm3 (4.00-11.30)
[2020-08-06 06:01] LABS: Bun/Creatinine Ratio 15.2 (12.0-20.0); Creatinine, Blood 1.32 mg/dL (0.60-1.20); Potassium, Blood 4.3 mmol/L (3.5-5.5)
--- NOTE | 2020-08-06 06:36 | NUR ---
SHIFT SUMMARY PATIENT IS ALERT AND ORIENTED X4, CAN BE FORGETFULL AT TIMES. PATIENT HAD TO BE REMINDED NOT TO GET OUT OF BED WHEN HE WAS FOUND STANDING AT HIS BEDSIDE. FEMORAL SITE AND RADIAL SITE STILL INTACT NO ADDITIONAL BLEEDING. TR BAND REMOVED @2324. RIGHT ARM SPLINT IN PLACE. PATIENT SLEPT MOST THE NIGHT. POWERGLIDE UNABLE TO FLUSH WHEN I TRIED TO DO A BLOOD DRAW AND HAD TO DC. CALLED HOSPITALIST AND ORDERS FOR NO IV ACCESS GIVEN. PATIENT USES URINAL. 02 SATS 96% ON ROOM AIR. PATIENT DENIES CP ALL SHIFT. VSS, NO ACUTE CHANGES. CALL LIGHT IN REACH.
--- NOTE | 2020-08-06 10:30 | NUR ---
UPDATE HOSPITALIST REQUESTING TO HAVE CARDIOLOGY TO ASSESS PT FOR POSSIBLE D/C. CARDIOLOGY INFORMED. CARDIOLOGY TO SEE PT.
--- NOTE | 2020-08-06 11:28 | NUR ---
UPDATE TRANSFER OPERATOR AT BEDSIDE. APPROVED D/C FOR PT. HOSPITALIST INFORMED.
--- NOTE | 2020-08-06 13:58 | NUR ---
PT DISHCARGE PT PROVIDED WITH DISCHARGE PAPERWORK. NO IV REMOVED D/T NO IV ACCESS. TELEMETRY REMOVED. MEDICATION CHANGES FAXED TO PT'S PREFERRED PHARMACY. VS STABLE.L FEMORAL ACCESS SITE WNL. NO FURTHER DRAINAGE ON DRESSING. TEGADERM IN PLACE. SITE WNL. NO HEMATOMA FORMATION. SENSATION INTACT IN EXTREMITIES. PT PROVIDED WITH ALL DISCHARGE INSTRUCTIONS REGARDING FOLLOW UP APTS AND CARE FOR FEMORAL AND RADIAL ACCESS SITES. PT BROUGHT TO VEHICLE BY WHEELCHAIR WITH ALL BELONGINGS WITH THIS RN.
== END 2020-08-06 13:47 | disposition home or self-care (01) | DRG 287 ==
LOC: ER 20:11 → PCU 20:12 → MEDS 20:12 → PCU 08-05 13:22
PROVIDERS: Emergency Medicine; Internal Medicine; Internal Medicine Interventional Cardiology; ADMIT Internal Medicine
PROC: 4A033BC Measurement of Arterial Pressure, Coronary, Percutaneous Approach (ICD-10-PCS; principal; 2020-08-05)
PROC: B2111ZZ Fluoroscopy of Multiple Coronary Arteries using Low Osmolar Contrast (ICD-10-PCS; 2020-08-05)
PROC: B240ZZ3 Ultrasonography of Single Coronary Artery, Intravascular (ICD-10-PCS; 2020-08-05)
PROC: B41G1ZZ Fluoroscopy of Left Lower Extremity Arteries using Low Osmolar Contrast (ICD-10-PCS; 2020-08-05)
DX: I25.110 Atherosclerotic heart disease of native coronary artery with unstable angina pectoris (principal); T82.855A Stenosis of coronary artery stent, initial encounter; T82.518A Breakdown (mechanical) of other cardiac and vascular devices and implants, initial encounter; I74.3 Embolism and thrombosis of arteries of the lower extremities; E78.5 Hyperlipidemia, unspecified; Z66 Do not resuscitate; I12.9 Hypertensive chronic kidney disease with stage 1 through stage 4 chronic kidney disease, or unspecified chronic kidney disease; G62.9 Polyneuropathy, unspecified; N18.30 Chronic kidney disease, stage 3 unspecified; K21.9 Gastro-esophageal reflux disease without esophagitis; K22.70 Barrett's esophagus without dysplasia; Z88.0 Allergy status to penicillin; Z88.5 Allergy status to narcotic agent; Z95.5 Presence of coronary angioplasty implant and graft; Z90.49 Acquired absence of other specified parts of digestive tract; Z98.890 Other specified postprocedural states; Z98.1 Arthrodesis status; Z90.79 Acquired absence of other genital organ(s); Z79.82 Long term (current) use of aspirin; Z79.02 Long term (current) use of antithrombotics/antiplatelets; Z79.899 Other long term (current) drug therapy; Z86.718 Personal history of other venous thrombosis and embolism; Z86.711 Personal history of pulmonary embolism; Y83.8 Other surgical procedures as the cause of abnormal reaction of the patient, or of later complication, without mention of misadventure at the time of the procedure
CPT/HCPCS: 36415; 71046; 76937; 80048; 80053; 82550; 83690; 83880; 84484; 85025; 85347; 92978; 93005; 93010; 93454; 93571; 93926; 96372; 96374; 96375; 99152; 99153; 99285-25; A9270; C1753; C1760; C1769; C1887; C1894; G0378; J1644; J1650; J2250; J2370; J2405; J3010; J7030; J7040; J7050; Q9967; U0004

== ENCOUNTER 2020-08-09 16:46 | Observation (INO) | payer MEDICARE, OTHER ==
[~2020-08-09] VITALS: Ht 177.8 cm; Wt 68.9 kg
[~2020-08-09 16:46] MED LIST changes: +ALUMINUM H320 MG/5 M; +DIFLUCAN100 MG PO; +MEGE40T PO; +NIFE10 PO; +RANEXA500 MG PO; +VITAMIN D31000 UNI1 PO
[2020-08-09 17:40] LABS: BASOPHILS ABSOLUTE AUTO 0.07 K/mm3 (0.00-0.23); BASOPHILS PERCENT AUTO 1 % (0-2); EOSINOPHILS ABSOLUTE AUTO 0.08 K/mm3 (0.00-0.68); EOSINOPHILS PERCENT AUTO 1 % (0-6); Hematocrit 39.9 % (37.0-53.0); IMMATURE GRAN ABSOLUTE AUTO 0.02 K/mm3 (0.00-0.10); IMMATURE GRAN PERCENT AUTO 0 % (0-1); LYMPHOCYTES ABSOLUTE AUTO 1.34 K/mm3 (0.84-5.20); LYMPHOCYTES PERCENT AUTO 19 % (21-46); MONOCYTES ABSOLUTE AUTO 0.45 K/mm3 (0.16-1.47); MONOCYTES PERCENT AUTO 6 % (4-13); Mean Corpuscular HGB 32.2 pg (26.0-34.0); Mean Corpuscular HGB Conc 32.6 g/dL (31.5-36.5); Mean Corpuscular Volume 99 fL (80-100); Mean Platelet Volume 8.7 fL (9.1-12.4); NEUTROPHILS ABSOLUTE AUTO 5.07 K/mm3 (1.96-9.15); NEUTROPHILS PERCENT AUTO 72 % (41-73); Platelet Count 500 K/mm3 (150-400); RDW Coefficient Variation 12.9 % (11.7-14.2); RDW Standard Deviation 47.2 fL (35.1-46.3); Red Blood Cell Count 4.04 M/mm3 (4.30-5.90); White Blood Cell Count 7.03 K/mm3 (4.00-11.30)
[2020-08-09 18:04] LABS: Alanine Aminotransfer (ALT/SGP 19 U/L (12-78); Albumin, Blood 3.5 g/dL (3.4-5.0); Albumin/Globulin Ratio 0.9 (0.8-1.8); Alk Phos 70 U/L (50-136); Anion Gap 5 mmol/L (6-16); Aspartate Aminotrans (AST/SGOT 13 U/L (12-37); Bilirubin, Total 0.3 mg/dL (0.1-1.0); Blood Urea Nitrogen 22 mg/dL (8-24); Bun/Creatinine Ratio 15.9 (12.0-20.0); CO2, Blood 23 mmol/L (21-32); Calcium, Blood 8.1 mg/dL (8.5-10.1); Chloride, Blood 112 mmol/L (98-108); Creatinine, Blood 1.38 mg/dL (0.60-1.20); Globulin, Blood 3.9 g/dL (2.2-4.0); Glomerular Filtration Rate 52 (60-); Glucose, Blood 122 mg/dL (70-99); Potassium, Blood 4.4 mmol/L (3.5-5.5); Sodium, Blood 140 mmol/L (136-145); Total Protein, Blood 7.4 g/dL (6.4-8.2); Troponin I <0.015 ng/mL (0.000-0.040)
--- NOTE | 2020-08-10 02:16 | NUR ---
ASSUMED CARE OF PATIENT AT APPROXIMATELY 0055 FROM ED RN ARLEY. PATIENT ARRIVED TO UNIT VIA STRETCHER AND TRANSFER VIA ONE ASSIST FROM ED TO PCU STRETCHER. PATIENT REPORTS CHEST PAIN AT A 1 THAT IS IN HIS LEFT CHEST RADIATES INTO LEFT ARM AND INTO JAW THAT IS DESCRIBED PRESSURE THAT OCCASIONALLY IS SHARP; STARTED IN RECLINER AT HOME AT 1500 ON 08/09; PATIENT REPORTS "SOMETIMES IT IS A 10". PATIENT REPORT FENTANYL HELPS; SL NITRO GIVEN AND CP WENT FROM 2 TO A ZERO. NSR ON TELE; OXYGEN SATURATION ABOVE 90% ON ROOM AIR. PIV S/L. 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 ADMISSION COMPLETE.
--- NOTE | 2020-08-10 06:49 | NUR ---
NO ACUTE CHANGES; NO REPORTS OF CHEST PAIN AFTER NITRO. VSS. PATIENT SLEPT ABOUT FIVE HOURS.
--- NOTE | 2020-08-10 09:51 | NUR ---
MORNING UPDATE, ASSUMED CARE PT WAS SLEEPING DURING MORNING REPORT. PT WAS ROUNDED ON BY RN CORBYO SOON AFTER SHIFT CHANGE, PT WAS HAVING BREAKFAST. PT REPORTED VERY MILD CHEST PAIN BUT REPORTED NO NEED FOR MEDICATION AT THIS TIME. PT WAS GIVEN MORNING MEDS PER EMAR; VS STABLE, PT ON RA. PT WAS VISITED BY MEDICAL STUDENT, AND DR. HERRERA, AND CHLOÉ THIS MORNING. PT REPORTS NOT BEING ABLE TO AFFORD HIS NITRO TABS EVEN WITH HIS INSURANCE SO HE LET THE PRESCRIPTION LAPSE. DISCHARGE PLANNING IS GOING TO WORK ON FINDING A SOLUTION TO THIS PROBLEM SO PT CAN POSSIBLY DISCHARGE TODAY.
[2020-08-10 10:29] LABS: BASOPHILS ABSOLUTE AUTO 0.07 K/mm3 (0.00-0.23); BASOPHILS PERCENT AUTO 1 % (0-2); EOSINOPHILS ABSOLUTE AUTO 0.13 K/mm3 (0.00-0.68); EOSINOPHILS PERCENT AUTO 2 % (0-6); Hematocrit 40.1 % (37.0-53.0); Hemoglobin 13.2 g/dL (13.5-17.5); IMMATURE GRAN ABSOLUTE AUTO 0.01 K/mm3 (0.00-0.10); IMMATURE GRAN PERCENT AUTO 0 % (0-1); LYMPHOCYTES ABSOLUTE AUTO 1.75 K/mm3 (0.84-5.20); LYMPHOCYTES PERCENT AUTO 26 % (21-46); MONOCYTES PERCENT AUTO 7 % (4-13); Mean Corpuscular HGB 32.2 pg (26.0-34.0); Mean Corpuscular HGB Conc 32.9 g/dL (31.5-36.5); Mean Corpuscular Volume 98 fL (80-100); Mean Platelet Volume 8.8 fL (9.1-12.4); NEUTROPHILS ABSOLUTE AUTO 4.38 K/mm3 (1.96-9.15); NEUTROPHILS PERCENT AUTO 64 % (41-73); Platelet Count 464 K/mm3 (150-400); RDW Coefficient Variation 12.7 % (11.7-14.2); White Blood Cell Count 6.84 K/mm3 (4.00-11.30)
[2020-08-10 10:58] LABS: Bun/Creatinine Ratio 18.5 (12.0-20.0); Calcium, Blood 8.1 mg/dL (8.5-10.1); Creatinine, Blood 1.24 mg/dL (0.60-1.20); Potassium, Blood 4.6 mmol/L (3.5-5.5)
--- NOTE | 2020-08-10 16:08 | NUR ---
DISCHARGE PT DISCHARGED AT 1600 TODAY, VS STABLE, PT ON RA. PT DENIES CP AT THE TIME OF DISCHARGE. PT HAS BEEN INSTRUCTED TO FOLLOW UP WITH PCP, CARDIOLOGY AND TO COMPLETE AN OUTPATIENT BARIUM SWALLOW STUDY THAT WAS SCHEDULED FOR 08/29/20. PT HAD ONE MEDICATION DOSAGE CHANGE, IT WAS SENT TO HIS PHARMACY OF CHOICE AND DISCUSSED WITH THE PT AT DISCHARGE. PT WAS GIVEN EDUCATION ON THE BARIUM SWALLOW STUDY AND WAS ESCORTED OUT BY CORPORATE EXECUTIVE VIA WHEELCHAIR AT APPROXIMATELY 1605
== END 2020-08-10 16:05 | disposition home or self-care (01) ==
LOC: ER 16:46 → PCU 16:47
PROVIDERS: Emergency Medicine; Nurse Practitioner Acute Care; ADMIT Internal Medicine
DX: R07.9 Chest pain, unspecified (principal); I12.9 Hypertensive chronic kidney disease with stage 1 through stage 4 chronic kidney disease, or unspecified chronic kidney disease; N18.30 Chronic kidney disease, stage 3 unspecified; I25.10 Atherosclerotic heart disease of native coronary artery without angina pectoris; I25.2 Old myocardial infarction; K21.9 Gastro-esophageal reflux disease without esophagitis; E78.5 Hyperlipidemia, unspecified; Z95.5 Presence of coronary angioplasty implant and graft; Z98.1 Arthrodesis status; Z86.711 Personal history of pulmonary embolism; Z86.718 Personal history of other venous thrombosis and embolism; Z88.5 Allergy status to narcotic agent; Z88.0 Allergy status to penicillin; Z79.02 Long term (current) use of antithrombotics/antiplatelets; Z79.82 Long term (current) use of aspirin; Z66 Do not resuscitate
CPT/HCPCS: 36415; 71046; 78306; 80048; 80053; 83690; 83880; 84484; 85025; 93005; 93010; 96372; 96374; 96375; 99285-25; A9270; A9503; G0378; J1644; J2405; J3010

== ENCOUNTER 2020-10-15 17:38 | Emergency (ER) | payer MEDICARE, OTHER ==
[~2020-10-15] VITALS: Ht 177.8 cm; Wt 75.8 kg
[2020-10-15 18:21] LABS: BASOPHILS ABSOLUTE AUTO 0.05 K/mm3 (0.00-0.23); BASOPHILS PERCENT AUTO 1 % (0-2); EOSINOPHILS PERCENT AUTO 2 % (0-6); Hematocrit 43.7 % (37.0-53.0); Hemoglobin 14.9 g/dL (13.5-17.5); IMMATURE GRAN ABSOLUTE AUTO 0.01 K/mm3 (0.00-0.10); IMMATURE GRAN PERCENT AUTO 0 % (0-1); LYMPHOCYTES ABSOLUTE AUTO 1.36 K/mm3 (0.84-5.20); LYMPHOCYTES PERCENT AUTO 33 % (21-46); MONOCYTES ABSOLUTE AUTO 0.34 K/mm3 (0.16-1.47); MONOCYTES PERCENT AUTO 8 % (4-13); Mean Corpuscular HGB 31.5 pg (26.0-34.0); Mean Corpuscular HGB Conc 34.1 g/dL (31.5-36.5); Mean Corpuscular Volume 92 fL (80-100); Mean Platelet Volume 8.5 fL (9.1-12.4); NEUTROPHILS ABSOLUTE AUTO 2.26 K/mm3 (1.96-9.15); NEUTROPHILS PERCENT AUTO 55 % (41-73); Platelet Count 541 K/mm3 (150-400); RDW Coefficient Variation 13.6 % (11.7-14.2); RDW Standard Deviation 46.7 fL (35.1-46.3); Red Blood Cell Count 4.73 M/mm3 (4.30-5.90); White Blood Cell Count 4.12 K/mm3 (4.00-11.30)
[2020-10-15 19:00] LABS: Alanine Aminotransfer (ALT/SGP 20 U/L (12-78); Albumin, Blood 3.5 g/dL (3.4-5.0); Alk Phos 59 U/L (50-136); Anion Gap 5 mmol/L (6-16); Aspartate Aminotrans (AST/SGOT 20 U/L (12-37); Bilirubin, Total 0.4 mg/dL (0.1-1.0); Blood Urea Nitrogen 19 mg/dL (8-24); CO2, Blood 21 mmol/L (21-32); Calcium, Blood 8.4 mg/dL (8.5-10.1); Chloride, Blood 112 mmol/L (98-108); Creatinine, Blood 1.12 mg/dL (0.60-1.20); Globulin, Blood 3.6 g/dL (2.2-4.0); Glomerular Filtration Rate >60 (60-); Glucose, Blood 119 mg/dL (70-99); Potassium, Blood 4.3 mmol/L (3.5-5.5); Sodium, Blood 138 mmol/L (136-145); Total Protein, Blood 7.1 g/dL (6.4-8.2); Troponin I <0.015 ng/mL (0.000-0.040)
[2020-10-15] MEDS ORDERED: METO25ER PO (22:48)
[2020-10-15] MEDS ORDERED: VIT1CAPS12 PO (22:49)
[2020-10-15] MEDS ORDERED: GABA300 PO ×2 (22:50)
[2020-10-15] MEDS ORDERED: CENTRUM SILVER1 EAC2 PO (22:51)
[2020-10-15] MEDS ORDERED: DOXY100 PO (22:53)
== END 2020-10-16 01:30 | disposition home or self-care (01) ==
LOC: ER 17:38
PROVIDERS: Physician Assistant
DX: R07.9 Chest pain, unspecified (principal); Z79.02 Long term (current) use of antithrombotics/antiplatelets; Z79.82 Long term (current) use of aspirin; Z79.899 Other long term (current) drug therapy; Z88.0 Allergy status to penicillin; Z88.5 Allergy status to narcotic agent
CPT/HCPCS: 36415; 71046; 80053; 84484; 85025; 93005; 93010; 99285-25

== ENCOUNTER 2020-11-09 11:43 | Inpatient (IN) | payer MEDICARE, OTHER ==
[~2020-11-09] VITALS: Ht 177.8 cm; Wt 75.3 kg
[~2020-11-09 11:43] MED LIST changes: +CENTRUM SILVER1 EAC2 PO; +DOXY100 PO
[2020-11-09 12:32] LABS: BASOPHILS ABSOLUTE AUTO 0.06 K/mm3 (0.00-0.23); BASOPHILS PERCENT AUTO 1 % (0-2); EOSINOPHILS ABSOLUTE AUTO 0.01 K/mm3 (0.00-0.68); EOSINOPHILS PERCENT AUTO 0 % (0-6); Hematocrit 27.5 % (37.0-53.0); Hemoglobin 9.1 g/dL (13.5-17.5); IMMATURE GRAN ABSOLUTE AUTO 0.03 K/mm3 (0.00-0.10); IMMATURE GRAN PERCENT AUTO 0 % (0-1); LYMPHOCYTES ABSOLUTE AUTO 0.88 K/mm3 (0.84-5.20); LYMPHOCYTES PERCENT AUTO 11 % (21-46); MONOCYTES ABSOLUTE AUTO 0.37 K/mm3 (0.16-1.47); MONOCYTES PERCENT AUTO 5 % (4-13); Mean Corpuscular HGB 32.2 pg (26.0-34.0); Mean Corpuscular HGB Conc 33.1 g/dL (31.5-36.5); Mean Corpuscular Volume 97 fL (80-100); Mean Platelet Volume 8.6 fL (9.1-12.4); NEUTROPHILS PERCENT AUTO 83 % (41-73); Platelet Count 503 K/mm3 (150-400); RDW Coefficient Variation 13.2 % (11.7-14.2); RDW Standard Deviation 47.5 fL (35.1-46.3); Red Blood Cell Count 2.83 M/mm3 (4.30-5.90); White Blood Cell Count 8.05 K/mm3 (4.00-11.30)
[2020-11-09 12:58] LABS: Alanine Aminotransfer (ALT/SGP 19 U/L (12-78); Albumin, Blood 3.1 g/dL (3.4-5.0); Albumin/Globulin Ratio 0.9 (0.8-1.8); Alk Phos 51 U/L (50-136); Anion Gap 5 mmol/L (6-16); Aspartate Aminotrans (AST/SGOT 10 U/L (12-37); Bilirubin, Total 0.4 mg/dL (0.1-1.0); Blood Urea Nitrogen 53 mg/dL (8-24); Bun/Creatinine Ratio 46.1 (12.0-20.0); CO2, Blood 25 mmol/L (21-32); Calcium, Blood 8.5 mg/dL (8.5-10.1); Chloride, Blood 107 mmol/L (98-108); Creatinine, Blood 1.15 mg/dL (0.60-1.20); Globulin, Blood 3.4 g/dL (2.2-4.0); Glomerular Filtration Rate >60 (60-); Glucose, Blood 115 mg/dL (70-99); Potassium, Blood 4.8 mmol/L (3.5-5.5); Sodium, Blood 137 mmol/L (136-145); Total Protein, Blood 6.5 g/dL (6.4-8.2); Troponin I <0.015 ng/mL (0.000-0.040)
[2020-11-09] MEDS ORDERED: RANOLAZINE ER500 M2 PO (15:36)
[2020-11-09 19:33] LABS: Hematocrit 23.3 % (37.0-53.0); Hemoglobin 7.8 g/dL (13.5-17.5)
[2020-11-10 05:42] LABS: Hemoglobin 6.6 g/dL (13.5-17.5); Mean Corpuscular HGB 32.5 pg (26.0-34.0); Mean Corpuscular Volume 99 fL (80-100); Mean Platelet Volume 8.8 fL (9.1-12.4); Platelet Count 311 K/mm3 (150-400); RDW Coefficient Variation 13.4 % (11.7-14.2); RDW Standard Deviation 48.1 fL (35.1-46.3); Red Blood Cell Count 2.03 M/mm3 (4.30-5.90); White Blood Cell Count 3.74 K/mm3 (4.00-11.30)
--- NOTE | 2020-11-10 06:28 | NUR ---
SHIFT SUMMARY NO ACUTE CHANGES THIS SHIFT, CONTINUES TO C/O HEADACHE (L SIDE), NO OTHER C/O ANY KIND 1 SMALL BM THIS SHIFT, SLEEPING AT THIS TIME, CALL LIGHT IN REACH, WILL CONT TO MONITOR UNTIL REPORT GIVEN TO DAY RN.
[2020-11-10 06:32] LABS: Bun/Creatinine Ratio 30.6 (12.0-20.0); Calcium, Blood 7.7 mg/dL (8.5-10.1); Creatinine, Blood 1.24 mg/dL (0.60-1.20); Potassium, Blood 4.1 mmol/L (3.5-5.5)
[2020-11-10 09:41] LABS: SARS-Cov-2 (COVID-19) PCR, MMC NEGATIVE (NEGATIVE)
--- NOTE | 2020-11-10 12:30 | NUR ---
PATIENT TAKEN DOWN FOR EGD. PRBC's AND PROTONIX CONTINUE TO RUN.
--- NOTE | 2020-11-10 12:36 | NUR ---
THE PATIENT WAS BROUGHT TO DAY SURGERY FOR HIS PROCEDURE. Ambulatory in Day Surgery History, Chart, Medications and Allergies reviewed before start of procedure.Lungs clear T/O to Auscultation. Patient confirms NPO status and agrees with scheduled surgery. Pre-Op teaching done. Pt verbalizes understanding.
--- NOTE | 2020-11-10 13:10 | NUR ---
11/10/20 1310 ROSY BEAUCHAMP History, Chart, Medications and Allergies reviewed before start of procedure. 3-LEAD EKG REVIEWED WITH PHYSICIAN PRIOR TO START OF PROCEDURE. O2 VIA POM INTACT THROUGHOUT SEDATION/PROCEDURE. MONITOR INTACT WITH CONTINUOUS PULSE OXIMETRY AND INTERMITTENT BP. PATIENT DETERMINED TO BE ASA APPROPRIATE FOR PROPOFOL SEDATION PRIOR TO START OF PROCEDURE BY DR. PHILLIPS.
[2020-11-10 15:34] LABS: Hematocrit 29.6 % (37.0-53.0); Hemoglobin 9.8 g/dL (13.5-17.5)
[2020-11-10 22:11] LABS: Hematocrit 26.8 % (37.0-53.0); Hemoglobin 9.1 g/dL (13.5-17.5)
--- NOTE | 2020-11-11 04:02 | NUR ---
SHIFT SUMMARY NO ACUTE CHANGES THIS SHIFT, NO C/O ANY KIND, DENIES ALICEA & DIZZINESS THIS SHIFT, AMBULATING TO BR W/ST BY ASSIST & FWW, SLEPT T/O THE NIGHT & AT THIS TIME, CALL LIGHT IN REACH, BED ALARM ACTIVE, [facility] TO DAY RN.
[2020-11-11 05:50] LABS: BASOPHILS ABSOLUTE AUTO 0.05 K/mm3 (0.00-0.23); BASOPHILS PERCENT AUTO 1 % (0-2); EOSINOPHILS ABSOLUTE AUTO 0.11 K/mm3 (0.00-0.68); EOSINOPHILS PERCENT AUTO 3 % (0-6); Hematocrit 26.7 % (37.0-53.0); IMMATURE GRAN ABSOLUTE AUTO 0.01 K/mm3 (0.00-0.10); IMMATURE GRAN PERCENT AUTO 0 % (0-1); LYMPHOCYTES ABSOLUTE AUTO 1.22 K/mm3 (0.84-5.20); LYMPHOCYTES PERCENT AUTO 34 % (21-46); MONOCYTES ABSOLUTE AUTO 0.25 K/mm3 (0.16-1.47); MONOCYTES PERCENT AUTO 7 % (4-13); Mean Corpuscular HGB Conc 33.7 g/dL (31.5-36.5); Mean Corpuscular Volume 95 fL (80-100); Mean Platelet Volume 8.8 fL (9.1-12.4); NEUTROPHILS ABSOLUTE AUTO 1.93 K/mm3 (1.96-9.15); NEUTROPHILS PERCENT AUTO 54 % (41-73); Platelet Count 274 K/mm3 (150-400); RDW Coefficient Variation 14.8 % (11.7-14.2); RDW Standard Deviation 51.7 fL (35.1-46.3); Red Blood Cell Count 2.81 M/mm3 (4.30-5.90); White Blood Cell Count 3.57 K/mm3 (4.00-11.30)
[2020-11-11 06:17] LABS: Bun/Creatinine Ratio 17.4 (12.0-20.0); Calcium, Blood 8.1 mg/dL (8.5-10.1); Creatinine, Blood 1.21 mg/dL (0.60-1.20); Potassium, Blood 4.1 mmol/L (3.5-5.5)
[2020-11-11 12:24] LABS: Hematocrit 28.4 % (37.0-53.0); Hemoglobin 9.5 g/dL (13.5-17.5)
[2020-11-11] MEDS ORDERED: ONDA4ODT MM (16:01)
[2020-11-11] MEDS ORDERED: Isosorbide Mono30 MG PO (16:01)
--- NOTE | 2020-11-11 16:45 | NUR ---
PATIENT D/C'D TO HOME. RX MEDICATIONS FAXED TO [facility]. DC INSTRUCTIONS AND EDUCATION DISCUSSED WITH PATIENT AND COPY PROVIDED. PATIENT DENIES ANY QUESTIONS OR CONCERNS. MESSAGE LEFT WITH [employer] TO CALL PATIENT WITH FOLLOW UP APPOINTMENT.
== END 2020-11-11 16:25 | disposition home or self-care (01) | DRG 378 ==
LOC: ER 11:43 → MEDS 15:20 → ERHOLD 15:20 → MEDS 17:25
PROVIDERS: Nurse Practitioner Acute Care; Physician Assistant; Student in an Organized Health Care Education/Training Program; ADMIT Internal Medicine
PROC: 0W3P8ZZ Control Bleeding in Gastrointestinal Tract, Via Natural or Artificial Opening Endoscopic (ICD-10-PCS; 2020-11-10)
PROC: 30233N1 Transfusion of Nonautologous Red Blood Cells into Peripheral Vein, Percutaneous Approach (ICD-10-PCS; principal; 2020-11-10 13:00)
DX: K25.4 Chronic or unspecified gastric ulcer with hemorrhage (principal); D62 Acute posthemorrhagic anemia; K44.9 Diaphragmatic hernia without obstruction or gangrene; Z66 Do not resuscitate; K21.9 Gastro-esophageal reflux disease without esophagitis; E78.5 Hyperlipidemia, unspecified; K31.819 Angiodysplasia of stomach and duodenum without bleeding; K57.30 Diverticulosis of large intestine without perforation or abscess without bleeding; I25.118 Atherosclerotic heart disease of native coronary artery with other forms of angina pectoris; Z20.822 Contact with and (suspected) exposure to COVID-19; I12.9 Hypertensive chronic kidney disease with stage 1 through stage 4 chronic kidney disease, or unspecified chronic kidney disease; K22.70 Barrett's esophagus without dysplasia; N18.30 Chronic kidney disease, stage 3 unspecified; Z88.0 Allergy status to penicillin; Z88.5 Allergy status to narcotic agent; Z95.5 Presence of coronary angioplasty implant and graft; Z98.890 Other specified postprocedural states; Z98.1 Arthrodesis status; Z90.49 Acquired absence of other specified parts of digestive tract; Z90.79 Acquired absence of other genital organ(s); Z79.82 Long term (current) use of aspirin; Z79.899 Other long term (current) drug therapy; Z79.02 Long term (current) use of antithrombotics/antiplatelets; Z86.010 Personal history of colon polyps; Z86.718 Personal history of other venous thrombosis and embolism; Z86.711 Personal history of pulmonary embolism
CPT/HCPCS: 36415; 36430; 70450; 74176; 80048; 80053; 81000; 83690; 84484; 85014; 85018; 85025; 85027; 86850; 86900; 86901; 86923; 87338; 93005; 93010; 96361; 96374; 96375; 97165; 97535; 99285-25; A9270; C9113; J2405; J2704; J7030; J7120; P9016; U0004

== ENCOUNTER → 2020-11-17 | Outpatient (CLI) | payer MEDICARE, OTHER ==
[~2020-11-17] MED LIST changes: +ONDA4ODT MM; +RANOLAZINE ER500 M2 PO
[2020-11-17 19:34] LABS: BASOPHILS ABSOLUTE AUTO 0.06 K/mm3 (0.00-0.23); BASOPHILS PERCENT AUTO 2 % (0-2); EOSINOPHILS PERCENT AUTO 3 % (0-6); Hematocrit 32.3 % (37.0-53.0); Hemoglobin 10.8 g/dL (13.5-17.5); IMMATURE GRAN PERCENT AUTO 0 % (0-1); LYMPHOCYTES ABSOLUTE AUTO 1.15 K/mm3 (0.84-5.20); LYMPHOCYTES PERCENT AUTO 32 % (21-46); MONOCYTES ABSOLUTE AUTO 0.26 K/mm3 (0.16-1.47); MONOCYTES PERCENT AUTO 7 % (4-13); Mean Corpuscular HGB 32.1 pg (26.0-34.0); Mean Corpuscular HGB Conc 33.4 g/dL (31.5-36.5); Mean Corpuscular Volume 96 fL (80-100); Mean Platelet Volume 8.6 fL (9.1-12.4); NEUTROPHILS PERCENT AUTO 56 % (41-73); Platelet Count 530 K/mm3 (150-400); RDW Coefficient Variation 14.4 % (11.7-14.2); RDW Standard Deviation 50.4 fL (35.1-46.3); Red Blood Cell Count 3.36 M/mm3 (4.30-5.90); White Blood Cell Count 3.57 K/mm3 (4.00-11.30)
[2020-11-17 20:10] LABS: Bun/Creatinine Ratio 10.9 (12.0-20.0); Calcium, Blood 8.3 mg/dL (8.5-10.1); Creatinine, Blood 1.29 mg/dL (0.60-1.20); Potassium, Blood 4.3 mmol/L (3.5-5.5)
== END | disposition home or self-care (01) ==
LOC: LAB SHORT 16:40 → LAB 16:40
PROVIDERS: Nurse Practitioner Family
DX: D64.9 Anemia, unspecified (principal)
CPT/HCPCS: 80048; 85025

== ENCOUNTER → 2021-01-09 | Outpatient (CLI) | payer MEDICARE, OTHER ==
[2021-01-10 10:43] LABS: BASOPHILS ABSOLUTE AUTO 0.05 K/mm3 (0.00-0.23); BASOPHILS PERCENT AUTO 1 % (0-2); EOSINOPHILS ABSOLUTE AUTO 0.07 K/mm3 (0.00-0.68); EOSINOPHILS PERCENT AUTO 2 % (0-6); Hematocrit 37.4 % (37.0-53.0); Hemoglobin 12.2 g/dL (13.5-17.5); IMMATURE GRAN ABSOLUTE AUTO 0.01 K/mm3 (0.00-0.10); IMMATURE GRAN PERCENT AUTO 0 % (0-1); LYMPHOCYTES ABSOLUTE AUTO 1.15 K/mm3 (0.84-5.20); LYMPHOCYTES PERCENT AUTO 29 % (21-46); MONOCYTES ABSOLUTE AUTO 0.28 K/mm3 (0.16-1.47); MONOCYTES PERCENT AUTO 7 % (4-13); Mean Corpuscular HGB 29.1 pg (26.0-34.0); Mean Corpuscular HGB Conc 32.6 g/dL (31.5-36.5); Mean Corpuscular Volume 89 fL (80-100); NEUTROPHILS ABSOLUTE AUTO 2.46 K/mm3 (1.96-9.15); NEUTROPHILS PERCENT AUTO 61 % (41-73); Platelet Count 449 K/mm3 (150-400); RDW Coefficient Variation 13.5 % (11.7-14.2); RDW Standard Deviation 44.1 fL (35.1-46.3); Red Blood Cell Count 4.19 M/mm3 (4.30-5.90); White Blood Cell Count 4.02 K/mm3 (4.00-11.30)
[2021-01-10 11:09] LABS: Bun/Creatinine Ratio 13.1 (12.0-20.0); Calcium, Blood 8.8 mg/dL (8.5-10.1); Creatinine, Blood 1.3 mg/dL (0.60-1.20); Potassium, Blood 4.7 mmol/L (3.5-5.5)
== END | disposition home or self-care (01) ==
LOC: LAB SHORT 17:20
PROVIDERS: Nurse Practitioner Family
DX: R07.89 Other chest pain (principal); R10.84 Generalized abdominal pain; R63.4 Abnormal weight loss; Z87.19 Personal history of other diseases of the digestive system
CPT/HCPCS: 80048; 85025

== ENCOUNTER 2021-05-23 04:33 | Inpatient (IN) | payer MEDICARE, OTHER ==
[~2021-05-23] VITALS: Ht 177.8 cm; Wt 69.8 kg
[2021-05-23 04:49] LABS: BASOPHILS ABSOLUTE AUTO 0.06 K/mm3 (0.00-0.23); BASOPHILS PERCENT AUTO 1 % (0-2); EOSINOPHILS ABSOLUTE AUTO 0.04 K/mm3 (0.00-0.68); EOSINOPHILS PERCENT AUTO 1 % (0-6); Hemoglobin 14.8 g/dL (13.5-17.5); IMMATURE GRAN ABSOLUTE AUTO 0.02 K/mm3 (0.00-0.10); IMMATURE GRAN PERCENT AUTO 0 % (0-1); LYMPHOCYTES ABSOLUTE AUTO 0.71 K/mm3 (0.84-5.20); LYMPHOCYTES PERCENT AUTO 12 % (21-46); MONOCYTES ABSOLUTE AUTO 0.38 K/mm3 (0.16-1.47); MONOCYTES PERCENT AUTO 6 % (4-13); Mean Corpuscular HGB 29.5 pg (26.0-34.0); Mean Corpuscular HGB Conc 32.2 g/dL (31.5-36.5); Mean Corpuscular Volume 92 fL (80-100); Mean Platelet Volume 8.6 fL (9.1-12.4); NEUTROPHILS ABSOLUTE AUTO 4.91 K/mm3 (1.96-9.15); NEUTROPHILS PERCENT AUTO 80 % (41-73); Platelet Count 365 K/mm3 (150-400); RDW Coefficient Variation 14.3 % (11.7-14.2); RDW Standard Deviation 48.1 fL (35.1-46.3); Red Blood Cell Count 5.02 M/mm3 (4.30-5.90); White Blood Cell Count 6.12 K/mm3 (4.00-11.30)
[2021-05-23 05:06] LABS: Albumin, Blood 3.6 g/dL (3.4-5.0); Albumin/Globulin Ratio 0.9 (0.8-1.8); Bilirubin, Total 0.5 mg/dL (0.1-1.0); Bun/Creatinine Ratio 17.7 (12.0-20.0); Calcium, Blood 9.2 mg/dL (8.5-10.1); Creatinine, Blood 1.24 mg/dL (0.60-1.20); Globulin, Blood 3.8 g/dL (2.2-4.0); Potassium, Blood 3.7 mmol/L (3.5-5.5); Total Protein, Blood 7.4 g/dL (6.4-8.2)
[2021-05-23 05:19] LABS: Source, Urine Clean Catch
[2021-05-23 05:22] LABS: Bilirubin, Urine Neg (Neg); Blood, Urine 1+ (Neg); Glucose Qualitative, Urine Neg (Neg); Ketones, Urine Neg (Neg); Leukocyte Esterase, Urine Neg (Neg); Nitrite, Urine Neg (Neg); Protein, Urine Neg (Neg); Specific Gravity, Urine 1.015 (1.003-1.022); Urobilinogen, Urine NORM (Normal)
[2021-05-23 05:26] LABS: Appearance, Urine Clear (Clear); Color, Urine Yellow (P-Yellow)
[2021-05-23 05:27] LABS: Bacteria Not Seen /hpf; Red Blood Cells, Urine 0-2 /hpf (0-2); Squamous Epithelial Cells Not Seen /hpf (Few); White Blood Cells, Urine Not Seen /hpf (0-5)
[2021-05-23 05:48] LABS: Influenza A, PCR NEGATIVE (NEGATIVE); Influenza B, PCR NEGATIVE (NEGATIVE); Resp Syncytial Virus, PCR NEGATIVE (NEGATIVE); SARS-Cov-2 (COVID-19) PCR, MMC NEGATIVE (NEGATIVE)
[2021-05-23 06:23] LABS: International Normalized Ratio 1.78
[2021-05-24 05:08] LABS: BASOPHILS ABSOLUTE AUTO 0.07 K/mm3 (0.00-0.23); BASOPHILS PERCENT AUTO 1 % (0-2); EOSINOPHILS ABSOLUTE AUTO 0.07 K/mm3 (0.00-0.68); EOSINOPHILS PERCENT AUTO 1 % (0-6); Hematocrit 45.2 % (37.0-53.0); Hemoglobin 14.3 g/dL (13.5-17.5); IMMATURE GRAN ABSOLUTE AUTO 0.01 K/mm3 (0.00-0.10); IMMATURE GRAN PERCENT AUTO 0 % (0-1); LYMPHOCYTES ABSOLUTE AUTO 1.09 K/mm3 (0.84-5.20); LYMPHOCYTES PERCENT AUTO 20 % (21-46); MONOCYTES ABSOLUTE AUTO 0.45 K/mm3 (0.16-1.47); MONOCYTES PERCENT AUTO 8 % (4-13); Mean Corpuscular HGB 29.6 pg (26.0-34.0); Mean Corpuscular HGB Conc 31.6 g/dL (31.5-36.5); Mean Corpuscular Volume 94 fL (80-100); Mean Platelet Volume 8.7 fL (9.1-12.4); NEUTROPHILS PERCENT AUTO 70 % (41-73); Platelet Count 320 K/mm3 (150-400); RDW Coefficient Variation 14.4 % (11.7-14.2); RDW Standard Deviation 49.5 fL (35.1-46.3); Red Blood Cell Count 4.83 M/mm3 (4.30-5.90); White Blood Cell Count 5.59 K/mm3 (4.00-11.30)
[2021-05-24 05:54] LABS: Albumin/Globulin Ratio 0.9 (0.8-1.8); Bilirubin, Total 0.7 mg/dL (0.1-1.0); Bun/Creatinine Ratio 17.1 (12.0-20.0); Calcium, Blood 9.1 mg/dL (8.5-10.1); Creatinine, Blood 1.17 mg/dL (0.60-1.20); Globulin, Blood 3.4 g/dL (2.2-4.0); Potassium, Blood 4.2 mmol/L (3.5-5.5); Total Protein, Blood 6.4 g/dL (6.4-8.2)
--- NOTE | 2021-05-24 07:23 | NUR ---
SHIFT SUMMARY PT A/OX4,NPO THIS SHIFT EXCEPT ICE CHIPS , NO C/O N/V OR PAIN, SBS ORDERED FOR THIS AM. NO ACUTE DISTRESS NOTED.
--- NOTE | 2021-05-24 14:15 | NUR ---
SB STUDY: PER DISCUSSION WITH DR. ANNA, IF PATIENT COULD TOLERATE A GLASS OF WATER WITHOUT NAUSEA/VOMITING, THE SB STUDY WOULD PROCEED. PATIENT HAD A FULL 12 OZ GLASS OF WATER AROUND 10:00. PATIENT HAS TOLERATED THIS WITHOUT ANY NAUSEA/VOMITING. NOTIFIED IMAGING OF PLAN. MEDICATED PATIENT ONCE FOR INTERMITTANT ABDOMINAL PAIN (PRESENT PRIOR TO INGESTION OF FLUID). ONCE PATIENT RETURNED FROM IMAGING AFTER INGESTION OF GASTROGRAFIN, HE INITIALLY DENIED NAUSEA AND GI DISCOMFORT. HOWEVER TIME PROGRESSED, HE EXPERIENCED GI UPSET (LARGE AMOUNTS OF STOOL - LIQUID WITH FORMED PIECES) AND SOME EMESIS. PATIENT NOTIFIED THE RN OF INITIAL NAUSEA/VOMITING AFTER THE FACT. RN IN ROOM AND ABLE TO ASSIST PATIENT WITH POSITIONING AND COMFORT ONCE NOTIFIED. MEDICATED PER PRNS. PATIENT WAS ABLE TO ULTIMATELY FEEL WELL ENOUGH TO RETURN TO IMAGING AND COMPLETE THE STUDY.
--- NOTE | 2021-05-24 15:55 | NUR ---
DIET: SPOKE WITH DR. ANNA ABOUT RESULTS FROM SBFT. ORDERS FOR A CLEAR LIQUID DIET AND TO ADVANCE TOMORROW. PATIENT NOTIFIED.
--- NOTE | 2021-05-24 19:36 | NUR ---
END OF SHIFT SUMMARY: PATIENT REPORTED INTERMITTANT ABDOMINAL STABBING PAIN DURING THE DAY. MEDICATED PER PRNS. ENCOURAGED AMBULATION TO RESTROOM TOLERATED. PATIENT STEADY ON FEET. PATIENT EXPERIENCED MULTIPLE LARGE, LIQUID (WITH FORMED PIECES) OF BROWN STOOL POST SB STUDY. SEE NURSES NOTE. PATIENT CONTINUED TO HAVE INTERMITTANT STABBING ABDOMINAL PAIN DURING THE SHIFT (NO NOTABLE TRIGGERING EVENT). PATIENT TOLERATED CLEAR LIQUID DINNER WITHOUT NAUSEA/VOMITING OR INCREASE IN INTERMITTANT ABDOMINAL PAIN. PATIENT REPORTED THAT SOLID FOOD DID NOT SOUND APPETIZING.
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
[2021-05-25] MEDS ORDERED: Vitamin D1000 UNI1 PO (12:40)
--- NOTE | 2021-05-25 14:28 | NUR ---
PATIENT D/C'D TO HOME WITH . DC INSTRUCTIONS AND EDUCATION DISCUSSED WITH PATIENT AND COPY PROVIDED. NO NEW RX MEDICATIONS ORDERED. PATIENT DENIES ANY NAUSEA OR ABDOMINAL DISCOMFORT. TOLERATED MS DIET FOR LUNCH. PATIENT TO MAKE F/U APPT WITH PCP AND DR. ANNA. PATIENT DENIES ANY FURTHER QUESTIONS OR CONCERNS.
== END 2021-05-25 14:54 | disposition home or self-care (01) | DRG 390 ==
LOC: ER 04:33 → MEDS 06:23 → ERHOLD 06:23 → MEDS 11:39
PROVIDERS: Student in an Organized Health Care Education/Training Program; ADMIT Internal Medicine
DX: K91.30 Postprocedural intestinal obstruction, unspecified as to partial versus complete (principal); Z53.29 Procedure and treatment not carried out because of patient's decision for other reasons; Z66 Do not resuscitate; Z20.822 Contact with and (suspected) exposure to COVID-19; K44.9 Diaphragmatic hernia without obstruction or gangrene; M89.8X8 Other specified disorders of bone, other site; I12.9 Hypertensive chronic kidney disease with stage 1 through stage 4 chronic kidney disease, or unspecified chronic kidney disease; K21.9 Gastro-esophageal reflux disease without esophagitis; N18.30 Chronic kidney disease, stage 3 unspecified; E78.5 Hyperlipidemia, unspecified; I25.10 Atherosclerotic heart disease of native coronary artery without angina pectoris; I25.2 Old myocardial infarction; Z98.890 Other specified postprocedural states; Z95.5 Presence of coronary angioplasty implant and graft; Z86.711 Personal history of pulmonary embolism; Z86.718 Personal history of other venous thrombosis and embolism; Z90.49 Acquired absence of other specified parts of digestive tract; Z98.1 Arthrodesis status; Z88.0 Allergy status to penicillin; Z88.6 Allergy status to analgesic agent; Z88.8 Allergy status to other drugs, medicaments and biological substances; Z79.02 Long term (current) use of antithrombotics/antiplatelets; Z79.899 Other long term (current) drug therapy; Y83.8 Other surgical procedures as the cause of abnormal reaction of the patient, or of later complication, without mention of misadventure at the time of the procedure
CPT/HCPCS: 0241U; 36415; 74177; 74250; 80053; 81001; 83605; 83690; 84484; 85025; 85610; 86850; 86900; 86901; 93005; 93010; 96374; 96375; 96376; 99285-25; A9270; J0780; J1885; J2405; J3010; J7030; Q9967

== ENCOUNTER 2021-11-14 10:17 | Day surgery (SDC) | payer MEDICARE, OTHER ==
[~2021-11-14] VITALS: Ht 177.8 cm; Wt 70.0 kg
[~2021-11-14 10:17] MED LIST changes: +ACET325 PO; +ALBU90OI INH; +Adalat/Procardi10 MG PO; +C COMPLEX1000 M1 PO; +METO25 PO; +Vitamin D1000 UNI1 PO
--- NOTE | 2021-11-14 14:26 | NUR ---
GROIN SITE SOFT AND MILDLY TENDER PER PT. NO BLEEDING NOTED.
--- NOTE | 2021-11-14 15:09 | NUR ---
PT SITTING UP EATING LUNCH
--- NOTE | 2021-11-14 16:06 | NUR ---
PT AND GIVEN DC INSTRUCTIONS AND VERBALIZED UNDERSTANDING. IV OUT. PT CHANGED INTO CLOTHES. GROIN SITE SOFT AND NON-TENDER. NO BLEEDING NOTED. PT TAKEN TO PARKING LOT VIA WC WHERE FAMILY WAS WAITING TO TAKE PT HOME.
== END 2021-11-14 15:55 | disposition home or self-care (01) ==
LOC: MHTC 10:17
PROC: B3181ZZ Fluoroscopy of Bilateral Internal Carotid Arteries using Low Osmolar Contrast (ICD-10-PCS; principal; 2021-11-14)
DX: I65.23 Occlusion and stenosis of bilateral carotid arteries (principal); R07.89 Other chest pain; I10 Essential (primary) hypertension; I25.10 Atherosclerotic heart disease of native coronary artery without angina pectoris; E78.5 Hyperlipidemia, unspecified; M19.90 Unspecified osteoarthritis, unspecified site; K21.9 Gastro-esophageal reflux disease without esophagitis; Z77.22 Contact with and (suspected) exposure to environmental tobacco smoke (acute) (chronic); Z95.5 Presence of coronary angioplasty implant and graft; Z79.82 Long term (current) use of aspirin; Z79.899 Other long term (current) drug therapy; Z79.02 Long term (current) use of antithrombotics/antiplatelets
CPT/HCPCS: 36225; 36226-50; 76937; 85347; 99152; 99153; A9270; C1760; C1769; C1894; J1644; J2250; J2310; J2997; J3010; J7030; Q9967

== ENCOUNTER 2022-01-20 07:55 | Emergency (ER) | payer MEDICARE, OTHER ==
[~2022-01-20] VITALS: Ht 177.8 cm; Wt 69.8 kg
[2022-01-20 08:39] LABS: BASOPHILS ABSOLUTE AUTO 0.04 K/mm3 (0.00-0.23); BASOPHILS PERCENT AUTO 0 % (0-2); EOSINOPHILS ABSOLUTE AUTO 0.02 K/mm3 (0.00-0.68); EOSINOPHILS PERCENT AUTO 0 % (0-6); Hematocrit 44.6 % (37.0-53.0); Hemoglobin 15.2 g/dL (13.5-17.5); IMMATURE GRAN ABSOLUTE AUTO 0.02 K/mm3 (0.00-0.10); IMMATURE GRAN PERCENT AUTO 0 % (0-1); LYMPHOCYTES ABSOLUTE AUTO 0.38 K/mm3 (0.84-5.20); LYMPHOCYTES PERCENT AUTO 4 % (21-46); MONOCYTES ABSOLUTE AUTO 0.56 K/mm3 (0.16-1.47); MONOCYTES PERCENT AUTO 6 % (4-13); Mean Corpuscular HGB 32.3 pg (26.0-34.0); Mean Corpuscular HGB Conc 34.1 g/dL (31.5-36.5); Mean Corpuscular Volume 95 fL (80-100); Mean Platelet Volume 8.4 fL (9.1-12.4); NEUTROPHILS ABSOLUTE AUTO 8.99 K/mm3 (1.96-9.15); NEUTROPHILS PERCENT AUTO 90 % (41-73); Platelet Count 283 K/mm3 (150-400); RDW Coefficient Variation 12.8 % (11.7-14.2); RDW Standard Deviation 45.2 fL (35.1-46.3); Red Blood Cell Count 4.71 M/mm3 (4.30-5.90); White Blood Cell Count 10.01 K/mm3 (4.00-11.30)
[2022-01-20 09:03] LABS: Albumin, Blood 3.4 g/dL (3.4-5.0); Albumin/Globulin Ratio 0.9 (0.8-1.8); Bilirubin, Total 0.7 mg/dL (0.1-1.0); Bun/Creatinine Ratio 15.6 (12.0-20.0); Calcium, Blood 8.9 mg/dL (8.5-10.1); Creatinine, Blood 1.09 mg/dL (0.60-1.20); Globulin, Blood 3.6 g/dL (2.2-4.0); Potassium, Blood 4.5 mmol/L (3.5-5.5)
[2022-01-20] MEDS ORDERED: CEFD300 PO (12:31)
[2022-01-20] MEDS ORDERED: Zithromax250 MG PO (12:31)
== END 2022-01-20 13:11 | disposition home or self-care (01) ==
LOC: ER 07:55
PROVIDERS: Physician Assistant
DX: J18.9 Pneumonia, unspecified organism (principal); Z95.5 Presence of coronary angioplasty implant and graft; Z88.0 Allergy status to penicillin; Z88.5 Allergy status to narcotic agent; Z88.8 Allergy status to other drugs, medicaments and biological substances; Z79.899 Other long term (current) drug therapy
CPT/HCPCS: 71045; 80053; 83880; 84484; 85025; 93005; 93010; A9270

== ENCOUNTER 2022-04-13 11:08 | Emergency (ER) | payer MEDICARE, OTHER ==
[~2022-04-13] VITALS: Ht 177.8 cm; Wt 71.2 kg
[~2022-04-13 11:08] MED LIST changes: +CEFD300 PO; +Zithromax250 MG PO
[2022-04-13 12:26] LABS: BASOPHILS ABSOLUTE AUTO 0.05 K/mm3 (0.00-0.23); BASOPHILS PERCENT AUTO 1 % (0-2); EOSINOPHILS ABSOLUTE AUTO 0.05 K/mm3 (0.00-0.68); EOSINOPHILS PERCENT AUTO 1 % (0-6); Hemoglobin 15.3 g/dL (13.5-17.5); IMMATURE GRAN ABSOLUTE AUTO 0.01 K/mm3 (0.00-0.10); IMMATURE GRAN PERCENT AUTO 0 % (0-1); LYMPHOCYTES ABSOLUTE AUTO 0.99 K/mm3 (0.84-5.20); LYMPHOCYTES PERCENT AUTO 24 % (21-46); MONOCYTES ABSOLUTE AUTO 0.29 K/mm3 (0.16-1.47); MONOCYTES PERCENT AUTO 7 % (4-13); Mean Corpuscular HGB 31.6 pg (26.0-34.0); Mean Corpuscular HGB Conc 33.3 g/dL (31.5-36.5); Mean Corpuscular Volume 95 fL (80-100); Mean Platelet Volume 8.5 fL (9.1-12.4); NEUTROPHILS ABSOLUTE AUTO 2.81 K/mm3 (1.96-9.15); NEUTROPHILS PERCENT AUTO 67 % (41-73); Platelet Count 283 K/mm3 (150-400); RDW Coefficient Variation 12.6 % (11.7-14.2); RDW Standard Deviation 44.2 fL (35.1-46.3); Red Blood Cell Count 4.84 M/mm3 (4.30-5.90)
[2022-04-13 12:38] LABS: Albumin, Blood 3.6 g/dL (3.4-5.0); Albumin/Globulin Ratio 1.1 (0.8-1.8); Bilirubin, Total 0.6 mg/dL (0.1-1.0); Bun/Creatinine Ratio 13.6 (12.0-20.0); Calcium, Blood 8.4 mg/dL (8.5-10.1); Creatinine, Blood 1.1 mg/dL (0.60-1.20); Globulin, Blood 3.2 g/dL (2.2-4.0); Potassium, Blood 4.3 mmol/L (3.5-5.5); Total Protein, Blood 6.8 g/dL (6.4-8.2)
== END 2022-04-13 13:41 | disposition home or self-care (01) ==
LOC: ER 11:08
PROVIDERS: Physician Assistant
DX: R10.9 Unspecified abdominal pain (principal); Z79.899 Other long term (current) drug therapy
CPT/HCPCS: 36415; 74177; 80053; 85025; Q9967

== ENCOUNTER → 2022-07-05 | Outpatient (CLI) | payer MEDICARE, OTHER ==
[2022-07-05 16:39] LABS: BASOPHILS ABSOLUTE AUTO 0.06 K/mm3 (0.00-0.23); BASOPHILS PERCENT AUTO 1 % (0-2); EOSINOPHILS ABSOLUTE AUTO 0.06 K/mm3 (0.00-0.68); EOSINOPHILS PERCENT AUTO 1 % (0-6); Hematocrit 47.6 % (37.0-53.0); IMMATURE GRAN PERCENT AUTO 0 % (0-1); LYMPHOCYTES ABSOLUTE AUTO 1.05 K/mm3 (0.84-5.20); LYMPHOCYTES PERCENT AUTO 22 % (21-46); MONOCYTES ABSOLUTE AUTO 0.37 K/mm3 (0.16-1.47); MONOCYTES PERCENT AUTO 8 % (4-13); Mean Corpuscular HGB 31.6 pg (26.0-34.0); Mean Corpuscular HGB Conc 33.6 g/dL (31.5-36.5); Mean Corpuscular Volume 94 fL (80-100); Mean Platelet Volume 8.5 fL (9.1-12.4); NEUTROPHILS ABSOLUTE AUTO 3.18 K/mm3 (1.96-9.15); NEUTROPHILS PERCENT AUTO 67 % (41-73); Platelet Count 356 K/mm3 (150-400); RDW Coefficient Variation 12.8 % (11.7-14.2); RDW Standard Deviation 44.6 fL (35.1-46.3); Red Blood Cell Count 5.06 M/mm3 (4.30-5.90); White Blood Cell Count 4.72 K/mm3 (4.00-11.30)
[2022-07-05 16:50] LABS: Bun/Creatinine Ratio 17.4 (12.0-20.0); Calcium, Blood 8.2 mg/dL (8.5-10.1); Creatinine, Blood 1.15 mg/dL (0.60-1.20); Potassium, Blood 4.8 mmol/L (3.5-5.5); Thyroid Stimulating Hormone 3.54 uIU/mL (0.360-4.800)
== END ==
LOC: LAB SHORT 13:52
PROVIDERS: Nurse Practitioner Family
DX: Z13.29 Encounter for screening for other suspected endocrine disorder (principal); N18.9 Chronic kidney disease, unspecified; I25.10 Atherosclerotic heart disease of native coronary artery without angina pectoris; R42 Dizziness and giddiness; R55 Syncope and collapse; R10.9 Unspecified abdominal pain; R53.83 Other fatigue
CPT/HCPCS: 80048; 84443; 85025; 87086

== ENCOUNTER 2022-07-07 13:26 | Observation (INO) | payer MEDICARE, OTHER ==
[~2022-07-07] VITALS: Ht 177.8 cm; Wt 72.1 kg
[2022-07-07] MEDS ORDERED: ATOR20 PO (13:38)
[2022-07-07 14:18] LABS: BASOPHILS ABSOLUTE AUTO 0.07 K/mm3 (0.00-0.23); BASOPHILS PERCENT AUTO 2 % (0-2); EOSINOPHILS ABSOLUTE AUTO 0.03 K/mm3 (0.00-0.68); EOSINOPHILS PERCENT AUTO 1 % (0-6); Hematocrit 49.1 % (37.0-53.0); Hemoglobin 16.4 g/dL (13.5-17.5); IMMATURE GRAN ABSOLUTE AUTO 0.01 K/mm3 (0.00-0.10); IMMATURE GRAN PERCENT AUTO 0 % (0-1); LYMPHOCYTES PERCENT AUTO 27 % (21-46); MONOCYTES ABSOLUTE AUTO 0.19 K/mm3 (0.16-1.47); MONOCYTES PERCENT AUTO 5 % (4-13); Mean Corpuscular HGB 31.5 pg (26.0-34.0); Mean Corpuscular HGB Conc 33.4 g/dL (31.5-36.5); Mean Corpuscular Volume 94 fL (80-100); Mean Platelet Volume 8.4 fL (9.1-12.4); NEUTROPHILS ABSOLUTE AUTO 2.37 K/mm3 (1.96-9.15); NEUTROPHILS PERCENT AUTO 65 % (41-73); Platelet Count 309 K/mm3 (150-400); RDW Coefficient Variation 12.6 % (11.7-14.2); RDW Standard Deviation 43.7 fL (35.1-46.3); Red Blood Cell Count 5.21 M/mm3 (4.30-5.90); White Blood Cell Count 3.67 K/mm3 (4.00-11.30)
[2022-07-07 14:30] LABS: Albumin, Blood 3.8 g/dL (3.4-5.0); Albumin/Globulin Ratio 1.1 (0.8-1.8); Bilirubin, Total 0.7 mg/dL (0.1-1.0); Bun/Creatinine Ratio 16.4 (12.0-20.0); Calcium, Blood 8.1 mg/dL (8.5-10.1); Creatinine, Blood 1.1 mg/dL (0.60-1.20); Globulin, Blood 3.6 g/dL (2.2-4.0); Potassium, Blood 4.5 mmol/L (3.5-5.5); Total Protein, Blood 7.4 g/dL (6.4-8.2)
[2022-07-07 14:41] LABS: Source, Urine Clean Catch
[2022-07-07 14:50] LABS: Appearance, Urine Clear (Clear); Bilirubin, Urine Neg (Neg); Blood, Urine Neg (Neg); Color, Urine Yellow (P-Yellow); Glucose Qualitative, Urine Neg (Neg); Ketones, Urine 1+ (Neg); Leukocyte Esterase, Urine Neg (Neg); Nitrite, Urine Neg (Neg); Protein, Urine Neg (Neg); Specific Gravity, Urine 1.015 (1.003-1.022); Urobilinogen, Urine NORM (Normal)
[2022-07-07 19:30] LABS: CPK Creatine Kinase 48 U/L (39-308)
[2022-07-07 20:13] VITALS: BP 126/87
[2022-07-07] MEDS ORDERED: MELA3 PO (21:23)
[2022-07-08 02:41] LABS: BASOPHILS ABSOLUTE AUTO 0.07 K/mm3 (0.00-0.23); BASOPHILS PERCENT AUTO 2 % (0-2); EOSINOPHILS ABSOLUTE AUTO 0.07 K/mm3 (0.00-0.68); EOSINOPHILS PERCENT AUTO 2 % (0-6); Hematocrit 42.1 % (37.0-53.0); Hemoglobin 14.4 g/dL (13.5-17.5); IMMATURE GRAN PERCENT AUTO 0 % (0-1); LYMPHOCYTES ABSOLUTE AUTO 1.35 K/mm3 (0.84-5.20); LYMPHOCYTES PERCENT AUTO 38 % (21-46); MONOCYTES ABSOLUTE AUTO 0.25 K/mm3 (0.16-1.47); MONOCYTES PERCENT AUTO 7 % (4-13); Mean Corpuscular HGB 31.9 pg (26.0-34.0); Mean Corpuscular HGB Conc 34.2 g/dL (31.5-36.5); Mean Corpuscular Volume 93 fL (80-100); Mean Platelet Volume 8.3 fL (9.1-12.4); NEUTROPHILS ABSOLUTE AUTO 1.86 K/mm3 (1.96-9.15); NEUTROPHILS PERCENT AUTO 52 % (41-73); Platelet Count 259 K/mm3 (150-400); RDW Coefficient Variation 12.6 % (11.7-14.2); RDW Standard Deviation 43.5 fL (35.1-46.3); Red Blood Cell Count 4.51 M/mm3 (4.30-5.90)
[2022-07-08 02:53] LABS: Bilirubin, Total 0.5 mg/dL (0.1-1.0); Bun/Creatinine Ratio 18.4 (12.0-20.0); Calcium, Blood 7.5 mg/dL (8.5-10.1); Creatinine, Blood 1.03 mg/dL (0.60-1.20); Globulin, Blood 2.9 g/dL (2.2-4.0); Potassium, Blood 4.1 mmol/L (3.5-5.5); Total Protein, Blood 5.9 g/dL (6.4-8.2)
--- NOTE | 2022-07-08 05:39 | NUR ---
SHIFT SUMMARY ANCA IS AXO 4. PLEASANT AND COOPERATIVE WITH CARE. REPORTS DIZZINESS EVEN WHEN LAYIG IN BED, BUT IT SUBSIDES WITH HIS EYES CLOSED. PT REPORTS NO NAUSEA OR CHEST PAIN. HE DID REQUEST MELATONIN HE TAKES IT AT HOME EVERY NIGHT AND HAS TROUBLE SLEEPING "BECAUSE I WORRY" PT USING URINAL FOR NOW HE BECOMES VERY DIZZY EVEN AT THE SIDE OF THE BED. BED ALARM ON, BED IN LOWEST POSITION AND CALL LIGHT IN REACH.
[2022-07-08 08:08] VITALS: BP 117/62
[2022-07-08 16:05] VITALS: BP 113/77
--- NOTE | 2022-07-08 16:54 | NUR ---
PT DID AMBULATE TO END OF GUTIERREZ TODAY. DID PRETTY WELL. SLIGHT STUMBLE AT DOOR THEN OTHER THAN SOME DIZZYNESS. STATES SOME BETTER THAN PRIOR. SOME IMPROVEMENT. DR DISCUSSED WITH ME AND WITH PT. HE WILL DISCHARGE THIS KATIE.
[2022-07-08] MEDS ORDERED: MECL25 PO (17:55)
--- NOTE | 2022-07-08 18:45 | NUR ---
1835 PT DISCHARGE REVIEWED WITH PT AND SPOUSE. VERBALIZED UNDERSATNDING OF MEDS AND INST. IV PULLED BY AIDE, TELE REMOVED BY AIDE. WHEELED TO DOOR AT 1835
== END 2022-07-08 18:35 | disposition home health service (06) ==
LOC: ER 13:26 → MEDS 13:27
PROVIDERS: Emergency Medicine; ADMIT Internal Medicine
DX: R42 Dizziness and giddiness (principal); I65.21 Occlusion and stenosis of right carotid artery; I25.10 Atherosclerotic heart disease of native coronary artery without angina pectoris; I25.2 Old myocardial infarction; I12.9 Hypertensive chronic kidney disease with stage 1 through stage 4 chronic kidney disease, or unspecified chronic kidney disease; N18.30 Chronic kidney disease, stage 3 unspecified; K21.9 Gastro-esophageal reflux disease without esophagitis; E78.5 Hyperlipidemia, unspecified; Z66 Do not resuscitate; Z79.899 Other long term (current) drug therapy; Z86.711 Personal history of pulmonary embolism; Z86.718 Personal history of other venous thrombosis and embolism; Z95.5 Presence of coronary angioplasty implant and graft; Z88.5 Allergy status to narcotic agent; Z88.0 Allergy status to penicillin
CPT/HCPCS: 36415; 70450; 70551; 71045; 80053; 81003; 82550; 83880; 84484; 85025; 93005; 93010; 96372; 97110; 97162; 97530; 99285-25; A9270; G0378; J1650; J7030

== ENCOUNTER 2023-01-17 11:31 | Emergency (ER) | payer MEDICARE, OTHER ==
[~2023-01-17] VITALS: Ht 177.8 cm; Wt 70.3 kg
[~2023-01-17 11:31] MED LIST changes: +MECL25 PO
[2023-01-17 12:43] LABS: BASOPHILS ABSOLUTE AUTO 0.05 K/mm3 (0.00-0.23); BASOPHILS PERCENT AUTO 1 % (0-2); EOSINOPHILS ABSOLUTE AUTO 0.07 K/mm3 (0.00-0.68); EOSINOPHILS PERCENT AUTO 2 % (0-6); Hematocrit 41.4 % (37.0-53.0); Hemoglobin 13.9 g/dL (13.5-17.5); IMMATURE GRAN ABSOLUTE AUTO 0.01 K/mm3 (0.00-0.10); IMMATURE GRAN PERCENT AUTO 0 % (0-1); LYMPHOCYTES ABSOLUTE AUTO 0.89 K/mm3 (0.84-5.20); LYMPHOCYTES PERCENT AUTO 21 % (21-46); MONOCYTES ABSOLUTE AUTO 0.36 K/mm3 (0.16-1.47); MONOCYTES PERCENT AUTO 9 % (4-13); Mean Corpuscular HGB 32.7 pg (26.0-34.0); Mean Corpuscular HGB Conc 33.6 g/dL (31.5-36.5); Mean Corpuscular Volume 97 fL (80-100); Mean Platelet Volume 8.3 fL (9.1-12.4); NEUTROPHILS PERCENT AUTO 67 % (41-73); Platelet Count 344 K/mm3 (150-400); RDW Coefficient Variation 12.8 % (11.7-14.2); RDW Standard Deviation 45.8 fL (35.1-46.3); Red Blood Cell Count 4.25 M/mm3 (4.30-5.90); White Blood Cell Count 4.18 K/mm3 (4.00-11.30)
[2023-01-17 13:08] LABS: Albumin, Blood 3.2 g/dL (3.4-5.0); Bilirubin, Total 0.4 mg/dL (0.1-1.0); Bun/Creatinine Ratio 12.7 (12.0-20.0); Calcium, Blood 7.9 mg/dL (8.5-10.1); Creatinine, Blood 1.26 mg/dL (0.60-1.20); Globulin, Blood 3.3 g/dL (2.2-4.0); Potassium, Blood 4.5 mmol/L (3.5-5.5); Total Protein, Blood 6.5 g/dL (6.4-8.2)
[2023-01-17 15:11] VITALS: BP 136/77
== END 2023-01-17 15:26 | disposition home or self-care (01) ==
LOC: ER 11:31
PROVIDERS: Emergency Medicine
DX: R07.89 Other chest pain (principal); Z88.0 Allergy status to penicillin; Z88.5 Allergy status to narcotic agent; Z88.1 Allergy status to other antibiotic agents; Z79.899 Other long term (current) drug therapy; I12.9 Hypertensive chronic kidney disease with stage 1 through stage 4 chronic kidney disease, or unspecified chronic kidney disease; N18.30 Chronic kidney disease, stage 3 unspecified; K21.9 Gastro-esophageal reflux disease without esophagitis; E78.5 Hyperlipidemia, unspecified; I25.2 Old myocardial infarction
CPT/HCPCS: 71046; 80053; 84484; 85025; 93005; 93010; 99285-25

== ENCOUNTER 2023-04-21 14:41 | Inpatient (IN) | payer MEDICARE, OTHER ==
[~2023-04-21] VITALS: Ht 180.3 cm; Wt 78.3 kg
[2023-04-21 15:14] LABS: BASOPHILS ABSOLUTE AUTO 0.06 K/mm3 (0.00-0.23); BASOPHILS PERCENT AUTO 1 % (0-2); EOSINOPHILS ABSOLUTE AUTO 0.02 K/mm3 (0.00-0.68); EOSINOPHILS PERCENT AUTO 0 % (0-6); Hematocrit 40.2 % (37.0-53.0); Hemoglobin 13.3 g/dL (13.5-17.5); IMMATURE GRAN ABSOLUTE AUTO 0.01 K/mm3 (0.00-0.10); IMMATURE GRAN PERCENT AUTO 0 % (0-1); LYMPHOCYTES ABSOLUTE AUTO 0.76 K/mm3 (0.84-5.20); LYMPHOCYTES PERCENT AUTO 16 % (21-46); MONOCYTES ABSOLUTE AUTO 0.31 K/mm3 (0.16-1.47); MONOCYTES PERCENT AUTO 6 % (4-13); Mean Corpuscular HGB Conc 33.1 g/dL (31.5-36.5); Mean Corpuscular Volume 97 fL (80-100); Mean Platelet Volume 8.2 fL (9.1-12.4); NEUTROPHILS ABSOLUTE AUTO 3.72 K/mm3 (1.96-9.15); NEUTROPHILS PERCENT AUTO 76 % (41-73); Platelet Count 400 K/mm3 (150-400); RDW Coefficient Variation 12.6 % (11.7-14.2); Red Blood Cell Count 4.15 M/mm3 (4.30-5.90); White Blood Cell Count 4.88 K/mm3 (4.00-11.30)
[2023-04-21 15:28] LABS: Albumin/Globulin Ratio 0.9 (0.8-1.8); Bilirubin, Total 0.5 mg/dL (0.1-1.0); Bun/Creatinine Ratio 20.7 (12.0-20.0); Calcium, Blood 8.2 mg/dL (8.5-10.1); Creatinine, Blood 1.11 mg/dL (0.60-1.20); Globulin, Blood 3.4 g/dL (2.2-4.0); Potassium, Blood 4.5 mmol/L (3.5-5.5); Total Protein, Blood 6.4 g/dL (6.4-8.2)
[2023-04-21 19:30] VITALS: BP 118/60
[2023-04-22] VITALS (9 sets, daily range): BP systolic 72–127; BP diastolic 59–70
--- NOTE | 2023-04-22 03:39 | NUR ---
SHIFT SUMMARY PT A&O, CALM AND COOPERATIVE WITH CARE. PT ACCIDENTLY HOOKED IV ON BLANKET AND RIPPED OUT. NEW IV START TO RIGHT HAND. ADMITED 04/21 FOR CHEST PAIN. PT DENIES ANY CHEST PAIN OR PRESSURE AT THIS TIME. TELEMETRY: SR @ 83 BPM. ROOM AIR. PT NPO AT MIDNIGHT FOR STRESS TEST THIS AM. 1P ASSIST WITH FWW TO RESTROOM. NO ACUTE EVENTS OVERNIGHT. BED KEPT IN LOWEST POSITION WITH CALL LIGHT WITHIN REACH. WILL CONTINUE TO MONITOR.
[2023-04-22 05:50] LABS: BASOPHILS ABSOLUTE AUTO 0.06 K/mm3 (0.00-0.23); BASOPHILS PERCENT AUTO 1 % (0-2); EOSINOPHILS ABSOLUTE AUTO 0.05 K/mm3 (0.00-0.68); EOSINOPHILS PERCENT AUTO 1 % (0-6); Hematocrit 41.2 % (37.0-53.0); Hemoglobin 13.9 g/dL (13.5-17.5); IMMATURE GRAN ABSOLUTE AUTO 0.01 K/mm3 (0.00-0.10); IMMATURE GRAN PERCENT AUTO 0 % (0-1); LYMPHOCYTES ABSOLUTE AUTO 0.82 K/mm3 (0.84-5.20); LYMPHOCYTES PERCENT AUTO 15 % (21-46); MONOCYTES ABSOLUTE AUTO 0.42 K/mm3 (0.16-1.47); MONOCYTES PERCENT AUTO 8 % (4-13); Mean Corpuscular HGB Conc 33.7 g/dL (31.5-36.5); Mean Corpuscular Volume 95 fL (80-100); Mean Platelet Volume 8.2 fL (9.1-12.4); NEUTROPHILS ABSOLUTE AUTO 3.97 K/mm3 (1.96-9.15); NEUTROPHILS PERCENT AUTO 75 % (41-73); Platelet Count 371 K/mm3 (150-400); RDW Coefficient Variation 12.5 % (11.7-14.2); RDW Standard Deviation 43.5 fL (35.1-46.3); Red Blood Cell Count 4.34 M/mm3 (4.30-5.90); White Blood Cell Count 5.33 K/mm3 (4.00-11.30)
[2023-04-22 06:26] LABS: Alanine Aminotransfer (ALT/SGP 15 U/L (12-78); Albumin, Blood 3.1 g/dL (3.4-5.0); Albumin/Globulin Ratio 0.9 (0.8-1.8); Alk Phos 56 U/L (50-136); Anion Gap 5 mmol/L (6-16); Aspartate Aminotrans (AST/SGOT 15 U/L (12-37); Bilirubin, Total 0.6 mg/dL (0.1-1.0); Blood Urea Nitrogen 22 mg/dL (8-24); Bun/Creatinine Ratio 19.5 (12.0-20.0); CO2, Blood 25 mmol/L (21-32); Calcium, Blood 8.3 mg/dL (8.5-10.1); Chloride, Blood 112 mmol/L (98-108); Cholesterol 144 mg/dL (50-200); Creatinine, Blood 1.13 mg/dL (0.60-1.20); Ferritin, Serum 39 ng/mL (26-388); Globulin, Blood 3.3 g/dL (2.2-4.0); Glomerular Filtration Rate 63 (60-); Glucose, Blood 99 mg/dL (70-99); Iron Serum 83 ug/dL (65-175); Percent Saturation 37.2 % (20.0-50.0); Potassium, Blood 4.2 mmol/L (3.5-5.5); Sodium, Blood 142 mmol/L (136-145); Total Iron Binding Capacity 223 ug/dL (250-450); Total Protein, Blood 6.4 g/dL (6.4-8.2); Triglycerides 162 mg/dL (30-160)
[2023-04-22 08:26] LABS: CHOL/HDL RATIO 4.6; Cholesterol 152 mg/dL (50-200); HDL Cholesterol 33 mg/dL (>39); LDL/HDL RATIO 2.6; Low Density Lipoprotein Chol 87 mg/dL (0-110); Triglycerides 161 mg/dL (30-160); Very Low Density Lipoprot Chol 32 mg/dL (6-32)
--- NOTE | 2023-04-22 14:05 | NUR ---
CARDIAC STRESS TEST- PT RECIEVING STRESS TEST AT THE BEDSIDE, HE BEGAN TO C/O CP 10/01. IV CAFFIENE WAS ADMINISTERED BY THE TECH, HOWEVER THE PAIN IS UNRESOLVED. PT STATES THE PAIN IS 6-10/01. PT KEEPS REPEATING "IT'S HEAVY, AND IT WON'T LET UP." HE STATES BREATHING IS NOT DIFFICULT, ALTHOUGH HIS BREATHS SEEM MORE SHALLOW THAN PREVIOUS.
--- NOTE | 2023-04-22 14:19 | NUR ---
CHEST PAIN- DR HAMM AT THE BEDSIDE. SBP 120'S, ADMINISTERED NITRO SBP 72 AFTER NITRO WITH MINIMAL RELIEF. BP INCREASING SLOWLY SBP 85.
--- NOTE | 2023-04-22 14:25 | NUR ---
CHEST PAIN- PT SBP IN THE 90'S CP NOW RATED AT A 3/10.
--- NOTE | 2023-04-22 17:05 | NUR ---
CALLED DR FAY- PT COMPLETED THE ONE DAY STRESS TEST. THE RESULTS ARE IN. PT CALLED AND ASKED WHEN HIS CAN COME GET HIM. EXPLAINED TO THE PT THAT THE HAS NOT YET READ THE RESULT. CALLED DR FAY TO LET HER KNOW THE RESULTS ARE AVAILABLE.
--- NOTE | 2023-04-22 18:46 | NUR ---
SHIFT SUMMARY- PT COMPLETED A ONE DAY STRESS TEST. THE RESULT CAME BACK ABNORMAL. PT IS TO BE NPO AT MIDNIGHT, CARDIOLOGY WILL COME TO SEE HIM IN THE MORNING. PLAN IS FOR THE PT TO GO TO THE [facility] TOMORROW. TROPONIN CAME BACK AT 86, CALLED DR FAY, SHE IS AWARE.
[2023-04-23] VITALS (8 sets, daily range): BP systolic 88–120; BP diastolic 44–67
--- NOTE | 2023-04-23 04:52 | NUR ---
SHIFT SUMMARY PT A&OX4 AND ANSWERS QUESTIONS APPROPRIATELY. PT IS TO GO TO THE [facility] IN THE AM ON 04/23/23. PT NPO AT MIDNIGHT. PT IV STOPPED FLUSHING AND A NEW IV WAS PLACED BY CHELLE HEARD AND IS PATENT. OLD IV REMOVED WITH NO SIGNS OF REDNESS/SWELLING. PT AMBULATED 1P SBA TO THE BATHROOM PRIOR TO BED. VSS. NO ACUTE EVENTS OCCURED DURING MY SHIFT. PT LEFT IN A POSITION OF SAFETY WITH PROPER FALL PRECAUTIONS IN PLACE AND CALL LIGHT IN REACH.
--- NOTE | 2023-04-23 10:30 | NUR ---
DR. ABREU IN TO SEE PT EARLIER WITH PLANS FOR ANGIOGRAM. [facility] VIA W/C.
--- NOTE | 2023-04-23 11:11 | NUR ---
REPORT CALLED TO ALLISON AHUMADA IN PCU. PT TRANSFERRING TO PCU 18 AFTER PROCEDURE.
--- NOTE | 2023-04-23 13:03 | NUR ---
[facility]. Her has right TR Band in place with 11cc in band. Patient is alert and oriented and is able to communicate his needs. Called and gave her update and she will try to make it later. The plan is to take back in a couple days to re-evaluate.
--- NOTE | 2023-04-23 15:30 | NUR ---
Removed 2 cc of air and went back in and patient had oozed zachary red blood. Cleaned site and applied back of total 100cc. No hematoma or bruising and will look at later to try again. Patient has been resting since friend left. He remINS on RA SATs >90%. He was slightly hypotensive in the 90's and is currently 90-110 and MAPS >65. He denies any thing but hunger and gave cracker and cheeze, tolerated well.
--- NOTE | 2023-04-23 18:33 | NUR ---
Family present in room and gave update. Dr Costa was also by and gave family and patient plan of care for next few days. Right wrist TR band intact and has 10cc in and will allow noc shift to deflat and he had some oozing when reassessed and reapplied and is now WNL's and C/D/I.
[2023-04-24] VITALS (14 sets, daily range): BP systolic 84–116; BP diastolic 56–81
--- NOTE | 2023-04-24 00:39 | NUR ---
PT ALERT AND ORIENTED X 4, COOPERATIVE WITH CARE AND ABLE TO MAKE NEEDS KNOWN. VALENCIARCHERELLE. HE IS ON RA AND MAINTAINING 02 SATURATION ABOVE 92%, HE DENIES SOB. HR SR 60'S-70'S, BP STABLE, HE HAS DENIED CHEST PAIN/PRESSURE ALL SHIFT. PT POST ANGIO. AT BEGINNING OF SHIFT TR BAND TO R RADIAL SITE, 2ML AIR REMOVED AT 2055, 2120, AND 2200. 4 ML AIR REMOVED AT 2250. NO REDNESSS/SWELLING/PAIN TO SITE, 0 HEMATOMA. TR BAND REMOVED AT 0020. TEGADERM AND ARM BOARD IN PLACE. AT BEGINNING OF SHIFT PT COMPLAINED OF NEUROPATHY PAIN IN BOTH OF HIS FEET. HE SAID THAT WHEN HE PLACES HIS FEET FIRM ON THE GROUND TO PUT PRESSURE ON HIS HEELS IT HELPS THE PAIN. HE SAT AT SIDE OF BED SEVERAL TIMES TO TRY THAT, IT GOT TO WHERE IT WASN'T WORKING ANYMORE. PT WAS MEDICATED WITH HIS PM MEDS AND TYLENOL. PT STILL EXPERIENCED PAIN AFTER MEDICATED, NOTIFIED MD AND ORDERS WERE PLACED. PT MEDICATED PER EMAR. PT HAS BEEN SLEEPING SINCE. IV TO L FA PATENT AND INFUSING PER EMAR. PT CURRENTLY SLEEPING WITH TV ON IN ROOM, SYMMETRICAL RISE AND FALL OF HIS CHEST, RR 16, 02 SATURATION ABOVE 92%. CALL LIGHT WITHIN REACH.
--- NOTE | 2023-04-24 05:31 | NUR ---
SHIFT SUMMARY SEE PREVIOUS NOTE. PT STILL COMPLAINING OF NEUROPATHY PAIN IN BOTH FEET. HE SAID IT FEELS LIKE PINS/NEEDLES. MD NOTIFIED, ORDERS PLACED, AND PT MEDICATED PER EMAR. PT FELL BACK TO SLEEP QUICKLY AFTER THAT. SYMMETRICAL CHEST RISE AND FALL, RR 16, 02 SATURATION ABOVE 92%. HE CONTINUES TO DENY CHEST PAIN/PRESSURE AND SOB. R RADIAL SITE POST ANGIO RECOVERED. NO REDNESS OR SWELLING TO R RADIAL SITE, 0 HEMATOMA. CALL LIGHT WITHIN REACH OF PT.
[2023-04-24 05:58] LABS: Bun/Creatinine Ratio 20.5 (12.0-20.0); Calcium, Blood 8.3 mg/dL (8.5-10.1); Creatinine, Blood 1.17 mg/dL (0.60-1.20); Potassium, Blood 3.9 mmol/L (3.5-5.5)
--- NOTE | 2023-04-24 10:55 | NUR ---
Pt is alert, oriented and cooperative with care. At change of shift the TR band site noted to be WNL. White immobilizer board in place. Per report the pt would be going for angiogram tomorrow; however, the traffic recorder made him NPO after breakfast today and said instead that it would be today. Pt ambulatory to the bathroom for shower and is now in bed and NPO for angiogram this afternoon. He is without pain, without dyspnea, and appears to be resting comfortably. Awakened easily for administration of oral medication.
--- NOTE | 2023-04-24 15:32 | NUR ---
Call to pt's Leida to give her an update on how the patient is doing. Her number [phone]
--- NOTE | 2023-04-24 15:43 | NUR ---
Pt c/o pain in his right wrist. No bleeding, no swelling, no hematoma, no ecchymosis. 3 cc air removed slowly from the TR band, and pt stated relief. Site remained WNL. Heating pad given to patient for relief from neck stiffness.
--- NOTE | 2023-04-24 18:04 | NUR ---
spo2 dropping to 87% on 12 l/min while eating dinner. Encouraged pt to eat more slowly, taking breaks to recover his breathing in between bites.
--- NOTE | 2023-04-24 18:08 | NUR ---
TR BAND FULLY DEFLATED AT 1730. SITE REMAINS WNL.
--- NOTE | 2023-04-24 18:50 | NUR ---
TR BAND removed 1 hour post completed deflation. Site remains WNL. Site cleansed with sponge chloroprep clear, dried with gauze and sterile tegederm placed over the site. Replaced white immobilizer board and reminded pt to avoid use of the arm, especially flexion and extension of the right wrist.
[2023-04-25 04:09] LABS: Calcium, Blood 8.3 mg/dL (8.5-10.1); Creatinine, Blood 1.22 mg/dL (0.60-1.20); Potassium, Blood 4.1 mmol/L (3.5-5.5)
[2023-04-25 04:25] VITALS: BP 108/56
--- NOTE | 2023-04-25 05:40 | NUR ---
SHIFT SUMMARY PATIENT ALERT AND ORIENTED X4. HAD NO COMPLAINTS OF CHEST PAIN OR SHORTNESS OF BREATH. HAS BEEN ON ROOM AIR, SPO2 >90%. SYSTOLIC BLOOD PRESSURE WAS LESS THAN 100 IN THE EVENING, [address] VILLEDA, SINUS RHYTHM ON TELE. RIGHT RADIAL SIGHT HAS BEEN FREE OF BLEEDING AND BRUSING, NO SWELLING NOTED. ARM BOARD IS IN PLACE. WILL CONTINUE TO MONITOR. CALL LIGHT WITHIN REACH.
[2023-04-25 07:08] VITALS: BP 101/62
[2023-04-25] MEDS ORDERED: Nitroglycerin1 EAC3 TOP (09:50)
--- NOTE | 2023-04-25 10:07 | NUR ---
per cardiology, the pt is clear for discharge today.
--- NOTE | 2023-04-25 10:41 | NUR ---
Ambulatory to the bathroom with staff standby assistance. Pt is much more stable with use of geriwalker. Assisted back to bed to nap as pt states tired and would like to rest until his arrives late morning.
[2023-04-25] MEDS ORDERED: ASPI81CH PO (10:47)
[2023-04-25] MEDS ORDERED: BRILINTA90 M7 PO (10:47)
--- NOTE | 2023-04-25 11:24 | NUR ---
Call to [facility] to request a BMP for the patient with his hospital follow up appointment with his PCP next week, per Dr. Cui.
== END 2023-04-25 12:03 | disposition home or self-care (01) | DRG 322 ==
LOC: ER 14:41 → MEDS 17:06 → PCU 04-23 10:24
PROVIDERS: Internal Medicine; Internal Medicine Cardiovascular Disease; Student in an Organized Health Care Education/Training Program; ADMIT Student in an Organized Health Care Education/Training Program
PROC: 027034Z Dilation of Coronary Artery, One Artery with Drug-eluting Intraluminal Device, Percutaneous Approach (ICD-10-PCS; principal; 2023-04-23)
PROC: B2111ZZ Fluoroscopy of Multiple Coronary Arteries using Low Osmolar Contrast (ICD-10-PCS; 2023-04-23)
PROC: 4A023N7 Measurement of Cardiac Sampling and Pressure, Left Heart, Percutaneous Approach (ICD-10-PCS; 2023-04-23)
PROC: B241ZZ3 Ultrasonography of Multiple Coronary Arteries, Intravascular (ICD-10-PCS; 2023-04-23)
PROC: 027034Z Dilation of Coronary Artery, One Artery with Drug-eluting Intraluminal Device, Percutaneous Approach (ICD-10-PCS; 2023-04-24)
PROC: B2111ZZ Fluoroscopy of Multiple Coronary Arteries using Low Osmolar Contrast (ICD-10-PCS; 2023-04-24)
PROC: 4A023N7 Measurement of Cardiac Sampling and Pressure, Left Heart, Percutaneous Approach (ICD-10-PCS; 2023-04-24)
DX: I21.4 Non-ST elevation (NSTEMI) myocardial infarction (principal); I74.3 Embolism and thrombosis of arteries of the lower extremities; I12.9 Hypertensive chronic kidney disease with stage 1 through stage 4 chronic kidney disease, or unspecified chronic kidney disease; K21.9 Gastro-esophageal reflux disease without esophagitis; G62.9 Polyneuropathy, unspecified; E78.5 Hyperlipidemia, unspecified; I25.118 Atherosclerotic heart disease of native coronary artery with other forms of angina pectoris; K22.70 Barrett's esophagus without dysplasia; N18.30 Chronic kidney disease, stage 3 unspecified; M06.9 Rheumatoid arthritis, unspecified; G47.30 Sleep apnea, unspecified; I65.21 Occlusion and stenosis of right carotid artery; K44.9 Diaphragmatic hernia without obstruction or gangrene; D63.1 Anemia in chronic kidney disease; J44.9 Chronic obstructive pulmonary disease, unspecified; Z88.0 Allergy status to penicillin; Z88.8 Allergy status to other drugs, medicaments and biological substances; Z88.5 Allergy status to narcotic agent; Z79.899 Other long term (current) drug therapy; Z95.5 Presence of coronary angioplasty implant and graft; Z98.1 Arthrodesis status; Z90.49 Acquired absence of other specified parts of digestive tract; Z90.89 Acquired absence of other organs; Z98.890 Other specified postprocedural states; Z86.718 Personal history of other venous thrombosis and embolism; Z79.01 Long term (current) use of anticoagulants; Z86.711 Personal history of pulmonary embolism; Z66 Do not resuscitate; Z87.19 Personal history of other diseases of the digestive system
CPT/HCPCS: 36415; 71046; 76937; 78452; 80048; 80053; 80061; 82465; 82728; 83540; 83550; 83735; 84443; 84478; 84484; 85025; 85347; 92920; 92978; 93005; 93010; 93017; 93454; 96374; 99152; 99153; 99285-25; A9270; A9500; C1725; C1753; C1769; C1874; C1887; C1894; C9600; G0378; J0461; J0706; J1644; J2250; J2371; J2785; J3010; J7030; J7040; J7050; J7120; J7121; Q9967

== ENCOUNTER 2023-05-13 11:25 | Inpatient (IN) | payer MEDICARE, OTHER ==
[~2023-05-13] VITALS: Ht 177.8 cm; Wt 70.6 kg
[~2023-05-13 11:25] MED LIST changes: +BRILINTA90 M7 PO; +Nitroglycerin1 EAC3 TOP
[2023-05-13 12:21] LABS: BASOPHILS ABSOLUTE AUTO 0.08 K/mm3 (0.00-0.23); BASOPHILS PERCENT AUTO 2 % (0-2); EOSINOPHILS ABSOLUTE AUTO 0.08 K/mm3 (0.00-0.68); EOSINOPHILS PERCENT AUTO 2 % (0-6); Hematocrit 41.3 % (37.0-53.0); IMMATURE GRAN ABSOLUTE AUTO 0.01 K/mm3 (0.00-0.10); IMMATURE GRAN PERCENT AUTO 0 % (0-1); LYMPHOCYTES ABSOLUTE AUTO 0.96 K/mm3 (0.84-5.20); LYMPHOCYTES PERCENT AUTO 20 % (21-46); MONOCYTES ABSOLUTE AUTO 0.35 K/mm3 (0.16-1.47); MONOCYTES PERCENT AUTO 7 % (4-13); Mean Corpuscular HGB 31.9 pg (26.0-34.0); Mean Corpuscular HGB Conc 33.9 g/dL (31.5-36.5); Mean Corpuscular Volume 94 fL (80-100); NEUTROPHILS ABSOLUTE AUTO 3.34 K/mm3 (1.96-9.15); NEUTROPHILS PERCENT AUTO 69 % (41-73); RDW Coefficient Variation 12.8 % (11.7-14.2); RDW Standard Deviation 44.5 fL (35.1-46.3); Red Blood Cell Count 4.39 M/mm3 (4.30-5.90); White Blood Cell Count 4.82 K/mm3 (4.00-11.30)
[2023-05-13 12:25] LABS: Albumin, Blood 3.4 g/dL (3.4-5.0); Bilirubin, Total 0.5 mg/dL (0.1-1.0); Bun/Creatinine Ratio 18.8 (12.0-20.0); Calcium, Blood 8.9 mg/dL (8.5-10.1); Creatinine, Blood 1.12 mg/dL (0.60-1.20); Globulin, Blood 3.3 g/dL (2.2-4.0); Potassium, Blood 4.3 mmol/L (3.5-5.5); Total Protein, Blood 6.7 g/dL (6.4-8.2)
[2023-05-13 12:46] LABS: Platelet Count 418 K/mm3 (150-400)
[2023-05-13] MEDS ORDERED: Isosorbide Mononitrate 30 MG TABCR PO ONE (13:15)
[2023-05-13] MEDS ORDERED: Isosorbide Mono30 MG PO (14:16)
[2023-05-13] MEDS ORDERED: Ondansetron HCl 2 MG / ML 2ML Vial IV PRN (17:50)
[2023-05-13] MEDS ORDERED: FLU VACC QS2023-24(6MOS UP)/PF 60 MCG/0.5 ML SYRINGE IM SCH (17:50)
[2023-05-13] MEDS ORDERED: Acetaminophen 325 MG TABLET PO PRN (17:50)
[2023-05-13] MEDS ORDERED: Ticagrelor 90 MG TABLET PO SCH (18:00)
[2023-05-13 19:20] LABS: Anti-Xa UFH, PHA Monitoring <0.10 IU/mL; International Normalized Ratio 1.03; Prothrombin Time Results 10.8 Sec (9.7-11.5)
[2023-05-13] MEDS ORDERED: Heparin Sodium 5000 Units/ML 1ML MDV IV ONE (19:50)
[2023-05-13] MEDS ORDERED: Heparin Sodium,Porcine/0.5 NS 500 ML IV SCH (19:50)
[2023-05-13 20:55] VITALS: BP 120/82
[2023-05-13] MEDS ORDERED: Metoprolol Tartrate 25 MG Tab PO SCH (21:00)
[2023-05-13] MEDS ORDERED: TraZODone HCl 100 MG Tab PO SCH (21:00)
[2023-05-13] MEDS ORDERED: Gabapentin 300 MG Cap PO SCH (21:00)
--- NOTE | 2023-05-13 21:29 | NUR ---
SPOKE WITH DR. GANGA PARTIDA DO REGARDING PT REQUESTING TO BE DNR. PER OK TO CHANGE ORDER TO REFLECT PT WISHES. ORDER CHANGED
--- NOTE | 2023-05-13 22:42 | NUR ---
ARRIVAL TO PCU: PT ARRIVED TO PCU6 VIA [facility] AT 2047. REPORT TAKEN FROM BRANDYN ROSENBAUM; THIS RN TO ASSUME CARE OF PT. PT ALERT, TALKING WITH STAFF ON ARRIVAL. ABLE TO STAND AND PIVOT FROM GURNEY TO BED. ACCOMPANIED BY SON & . HR 90'S, SINUS ON TELE. BP STABLE, MAP >65. PT REPORTS INTERMITTENT CHEST PAIN/PRESSURE, STATES IT "COMES & GOES". HEPARIN GTT INFUSING PER EMAR ON ARRIVAL, RATE WAS VERIFIED AT TIME OF ARRIVAL. PLANS FOR CARDIOLOGY CONSULT, NPO AT 0000 FOR POSSIBLE ANGIO IN AM. SPO2 >90% ON RA, PT DENIES SOB. LUNG SOUNDS CLEAR BILATERALLY, NO COUGH NOTED. RESPIRATIONS EVEN & UNLABORED. GI/ WNL. ABLE TO VOID INDEPENDENTLY IN URINAL. UP TO TOILET FOR BM SHORTLY AFTER ARRIVING TO UNIT. BOWEL SOUNDS PRESENT, ABD SOFT/NONTENDER. SKIN WNL ON ASSESSMENT. IV TO R HAND ON ARRIVAL, SECOND IV PLACED TO L FOREARM. NS TO START AT 2330 JUST PRIOR TO NPO. PT ABLE TO EAT A SANDWICH, TOLERATING THIN LIQUIDS. ABLE TO SWALLOW PILLS WHOLE W/ WATER. AMBULATES WELL W/ WALKER, STAFF SBA FOR LINE MANAGEMENT; USES WALKER AT HOME AT BASELINE. ORIENTED TO ROOM/UNIT/CALL LIGHT. DISCUSSED FIRE/IGNITION SOURCE POLICY, PT HAS NEVER SMOKED & NO IGNITION SOURCES PRESENT ON ADMISSION. CALL LIGHT IN REACH, BED IN LOWEST POSITION.
[2023-05-13] MEDS ORDERED: NS 1,000 ML IV SCH (23:30)
[2023-05-14] VITALS (7 sets, daily range): BP systolic 87–116; BP diastolic 57–78
--- NOTE | 2023-05-14 06:08 | NUR ---
END OF SHIFT NOTE: NO ACUTE EVENTS SINCE ARRIVAL TO PCU. HR 60-90'S, SINUS ON TELE. SBP 100-120'S, CONTINUES TO ENDORSE INTERMITTENT CHEST PAIN/PRESSURE. SPO2 >90% ON RA, DENIES SOB. AFEBRILE. HEPARIN GTT CONTINUES TO INFUSE AT 15 U/KG/HR, MANAGED BY PHARMACY. NS INFUSING AT 100 ML/HR PER EMAR. PT HAS BEEN NPO SINCE 0000 FOR POTENTIAL ANGIO THIS AM. ABLE TO VOID INDEPENDENTLY IN URINAL. REPOSITIONS INDEPENDENTLY. NO OTHER NEEDS AT THIS TIME, CALL LIGHT IN REACH. WILL REPORT TO ONCOMING RN.
[2023-05-14] MEDS ORDERED: Gabapentin 300 MG Cap PO SCH (09:00)
[2023-05-14] MEDS ORDERED: Aspirin 81 MG Chew PO SCH (09:00)
[2023-05-14] MEDS ORDERED: Atorvastatin 10 MG Tab PO SCH (09:00)
[2023-05-14] MEDS ORDERED: Isosorbide Mononitrate 30 MG TABCR PO SCH (09:00)
[2023-05-14 09:01] LABS: Hematocrit 40.1 % (37.0-53.0); Hemoglobin 13.5 g/dL (13.5-17.5); Mean Corpuscular HGB 32.3 pg (26.0-34.0); Mean Corpuscular HGB Conc 33.7 g/dL (31.5-36.5); Mean Corpuscular Volume 96 fL (80-100); Mean Platelet Volume 8.3 fL (9.1-12.4); Platelet Count 280 K/mm3 (150-400); RDW Coefficient Variation 12.8 % (11.7-14.2); RDW Standard Deviation 45.3 fL (35.1-46.3); Red Blood Cell Count 4.18 M/mm3 (4.30-5.90); White Blood Cell Count 3.51 K/mm3 (4.00-11.30)
[2023-05-14] MEDS ORDERED: NiCARdipine HCL 1,000 MCG/5 ML SYR ONE (09:22)
[2023-05-14] MEDS ORDERED: Nitroglycerin 2 MG/20 ML BTL ONE (09:22)
[2023-05-14] MEDS ORDERED: NS 250 ML IV ONE ×2 (09:22→09:38)
[2023-05-14] MEDS ORDERED: NS 1,000 ML IV ONE ×2 (09:22→10:00)
[2023-05-14] MEDS ORDERED: Heparin Sodium 1000 Units/ML 10ML MDV ONE (09:38)
[2023-05-14] MEDS ORDERED: FentaNYL Citrate 50 MCG/ML 2 ML Injection ONE ×2 (09:59→12:06)
[2023-05-14] MEDS ORDERED: Midazolam HCl 1MG / ML 2ML Vial ONE ×2 (10:00→12:06)
[2023-05-14] MEDS ORDERED: Dose Adjust by Pharmacy XX STA (10:12)
[2023-05-14] MEDS ORDERED: Atorvastatin 10 MG Tab PO ONE (13:00)
--- NOTE | 2023-05-14 19:15 | NUR ---
ASSUMPTION OF CARE RECEIVED INTO CARE, BEDSIDE REPORT GIVEN BY DAY RN. PT AWAKE AND ALERT LYING IN BED. IN SR HR 80S. HEPARIN GTT INFUSING AT 15U CHECKED WITH EMAR. NO VOICED CONCERNS AT THIS TIME, IS COMFORTABLE. CALL DORSEY IN REACH. SEE SHIFT ASSESSMENT FOR FURTHER DETAILS.
[2023-05-15 00:26] VITALS: BP 95/51
--- NOTE | 2023-05-15 00:50 | NUR ---
HOSPITALIST DR HAYNES AT BEDSIDE TO SPEAK WITH PATIENT REGARDING TRANSFER TO [place]. PT HAS BEEN ACCEPTED AND HAS A BED WAITING.
[2023-05-15 04:15] VITALS: BP 86/51
[2023-05-15] MEDS ORDERED: Dose Adjust by Pharmacy XX STA (05:05)
[2023-05-15 05:21] VITALS: BP 95/62
--- NOTE | 2023-05-15 05:51 | NUR ---
TRANSFER OF CARE TRANSPORT CREW AT BEDSIDE, REPORT GIVEN TO [employer]. ALL BELONGINGS WITH PATIENT. PCU IN [place] PHONED AND REPORT GIVEN TO BRANDYN MAIN.
[2023-05-15] MEDS ORDERED: Pantoprazole Sodium 40 MG Tab PO SCH (06:00)
[2023-05-15 07:45] LABS: Calcium, Blood 8.1 mg/dL (8.5-10.1); Creatinine, Blood 1.15 mg/dL (0.60-1.20)
[2023-05-15 07:48] LABS: BASOPHILS ABSOLUTE AUTO 0.07 K/mm3 (0.00-0.23); BASOPHILS PERCENT AUTO 2 % (0-2); EOSINOPHILS ABSOLUTE AUTO 0.17 K/mm3 (0.00-0.68); EOSINOPHILS PERCENT AUTO 4 % (0-6); Hematocrit 37.3 % (37.0-53.0); Hemoglobin 12.7 g/dL (13.5-17.5); IMMATURE GRAN ABSOLUTE AUTO 0.01 K/mm3 (0.00-0.10); IMMATURE GRAN PERCENT AUTO 0 % (0-1); LYMPHOCYTES ABSOLUTE AUTO 1.05 K/mm3 (0.84-5.20); LYMPHOCYTES PERCENT AUTO 24 % (21-46); MONOCYTES ABSOLUTE AUTO 0.36 K/mm3 (0.16-1.47); MONOCYTES PERCENT AUTO 8 % (4-13); Mean Corpuscular HGB 32.5 pg (26.0-34.0); Mean Corpuscular Volume 95 fL (80-100); Mean Platelet Volume 8.4 fL (9.1-12.4); NEUTROPHILS ABSOLUTE AUTO 2.68 K/mm3 (1.96-9.15); NEUTROPHILS PERCENT AUTO 62 % (41-73); Platelet Count 281 K/mm3 (150-400); RDW Standard Deviation 45.4 fL (35.1-46.3); Red Blood Cell Count 3.91 M/mm3 (4.30-5.90); White Blood Cell Count 4.34 K/mm3 (4.00-11.30)
[2023-05-15] MEDS ORDERED: Atorvastatin 40 MG Tab PO SCH (21:00)
== END 2023-05-15 05:45 | disposition short-term general hospital (02) | DRG 251 ==
LOC: ER 11:25 → PCU 11:26
PROVIDERS: Family Medicine; Nurse Practitioner Acute Care; Student in an Organized Health Care Education/Training Program; ADMIT Internal Medicine
PROC: 02703ZZ Dilation of Coronary Artery, One Artery, Percutaneous Approach (ICD-10-PCS; principal; 2023-05-14)
PROC: B2111ZZ Fluoroscopy of Multiple Coronary Arteries using Low Osmolar Contrast (ICD-10-PCS; 2023-05-14)
PROC: 4A023N7 Measurement of Cardiac Sampling and Pressure, Left Heart, Percutaneous Approach (ICD-10-PCS; 2023-05-14)
PROC: B241ZZ3 Ultrasonography of Multiple Coronary Arteries, Intravascular (ICD-10-PCS; 2023-05-14)
DX: I22.2 Subsequent non-ST elevation (NSTEMI) myocardial infarction (principal); I82.511 Chronic embolism and thrombosis of right femoral vein; I21.4 Non-ST elevation (NSTEMI) myocardial infarction; Z66 Do not resuscitate; I25.110 Atherosclerotic heart disease of native coronary artery with unstable angina pectoris; E78.5 Hyperlipidemia, unspecified; G62.9 Polyneuropathy, unspecified; I12.9 Hypertensive chronic kidney disease with stage 1 through stage 4 chronic kidney disease, or unspecified chronic kidney disease; N18.30 Chronic kidney disease, stage 3 unspecified; K21.9 Gastro-esophageal reflux disease without esophagitis; K22.70 Barrett's esophagus without dysplasia; I65.21 Occlusion and stenosis of right carotid artery; Z95.5 Presence of coronary angioplasty implant and graft; Z87.19 Personal history of other diseases of the digestive system; Z79.82 Long term (current) use of aspirin
CPT/HCPCS: 36415; 71045; 76937; 80048; 80053; 84484; 85025; 85027; 85347; 85520; 85610; 85730; 92920; 92921; 92978; 93005; 93010; 93306; 93454; 96365; 96376; 99152; 99153; 99285-25; A9270; C1725; C1753; C1769; C1887; C1894; G0378; J1644; J2250; J3010; J7030; J7050; Q9967

== ENCOUNTER 2023-11-13 17:48 | Emergency (ER) | payer MEDICARE, OTHER ==
[~2023-11-13] VITALS: Ht 177.8 cm; Wt 70.3 kg
[2023-11-13 18:20] LABS: BASOPHILS ABSOLUTE AUTO 0.06 K/mm3 (0.00-0.23); BASOPHILS PERCENT AUTO 1 % (0-2); EOSINOPHILS ABSOLUTE AUTO 0.11 K/mm3 (0.00-0.68); EOSINOPHILS PERCENT AUTO 2 % (0-6); Hematocrit 41.7 % (37.0-53.0); Hemoglobin 13.8 g/dL (13.5-17.5); IMMATURE GRAN PERCENT AUTO 0 % (0-1); LYMPHOCYTES ABSOLUTE AUTO 1.27 K/mm3 (0.84-5.20); LYMPHOCYTES PERCENT AUTO 25 % (21-46); MONOCYTES ABSOLUTE AUTO 0.37 K/mm3 (0.16-1.47); MONOCYTES PERCENT AUTO 7 % (4-13); Mean Corpuscular HGB 31.9 pg (26.0-34.0); Mean Corpuscular HGB Conc 33.1 g/dL (31.5-36.5); Mean Corpuscular Volume 97 fL (80-100); Mean Platelet Volume 8.7 fL (9.1-12.4); NEUTROPHILS ABSOLUTE AUTO 3.29 K/mm3 (1.96-9.15); NEUTROPHILS PERCENT AUTO 64 % (41-73); Platelet Count 296 K/mm3 (150-400); RDW Coefficient Variation 13.1 % (11.7-14.2); RDW Standard Deviation 46.7 fL (35.1-46.3); Red Blood Cell Count 4.32 M/mm3 (4.30-5.90)
[2023-11-13 18:39] LABS: Albumin, Blood 3.1 g/dL (3.4-5.0); Albumin/Globulin Ratio 0.8 (0.8-1.8); Bilirubin, Total 0.5 mg/dL (0.1-1.0); Bun/Creatinine Ratio 15.9 (12.0-20.0); Calcium, Blood 8.6 mg/dL (8.5-10.1); Creatinine, Blood 1.26 mg/dL (0.60-1.20); Globulin, Blood 3.8 g/dL (2.2-4.0); Potassium, Blood 4.1 mmol/L (3.5-5.5); Total Protein, Blood 6.9 g/dL (6.4-8.2)
[2023-11-13 21:06] LABS: Source, Urine Clean Catch
[2023-11-13 21:40] LABS: Appearance, Urine Clear (Clear); Bilirubin, Urine Neg (Neg); Blood, Urine Neg (Neg); Color, Urine Yellow (P-Yellow); Glucose Qualitative, Urine Neg (Neg); Ketones, Urine Neg (Neg); Leukocyte Esterase, Urine Neg (Neg); Nitrite, Urine Neg (Neg); Protein, Urine 1+ (Neg); Urobilinogen, Urine NORM (Normal)
[2023-11-13 23:00] VITALS: BP 120/59
[2023-11-13] MEDS ORDERED: Lidocaine 4% 1 Patch TOP ONE (23:15)
[2023-11-13] MEDS ORDERED: LIDO700A20 TOP (23:17)
== END 2023-11-13 23:32 | disposition home or self-care (01) ==
LOC: ER 17:48
PROVIDERS: Physician Assistant
DX: R10.2 Pelvic and perineal pain (principal); I12.9 Hypertensive chronic kidney disease with stage 1 through stage 4 chronic kidney disease, or unspecified chronic kidney disease; N18.30 Chronic kidney disease, stage 3 unspecified; K21.9 Gastro-esophageal reflux disease without esophagitis; E78.5 Hyperlipidemia, unspecified; I25.2 Old myocardial infarction; Z79.82 Long term (current) use of aspirin; Z79.899 Other long term (current) drug therapy; Z88.0 Allergy status to penicillin; Z88.5 Allergy status to narcotic agent; Z88.8 Allergy status to other drugs, medicaments and biological substances
CPT/HCPCS: 74177; 80053; 85025; 99284-25; A9270; Q9967

== ENCOUNTER 2023-11-22 12:29 | Observation (INO) | payer MEDICARE, OTHER ==
[~2023-11-22] VITALS: Ht 177.8 cm; Wt 73.5 kg
[~2023-11-22 12:29] MED LIST changes: +LIDO700A20 TOP; +NS 1,000 ML IV SCH
[2023-11-22 13:23] LABS: BASOPHILS ABSOLUTE AUTO 0.06 K/mm3 (0.00-0.23); BASOPHILS PERCENT AUTO 1 % (0-2); EOSINOPHILS ABSOLUTE AUTO 0.14 K/mm3 (0.00-0.68); EOSINOPHILS PERCENT AUTO 3 % (0-6); Hematocrit 40.1 % (37.0-53.0); Hemoglobin 13.5 g/dL (13.5-17.5); IMMATURE GRAN ABSOLUTE AUTO 0.01 K/mm3 (0.00-0.10); IMMATURE GRAN PERCENT AUTO 0 % (0-1); LYMPHOCYTES ABSOLUTE AUTO 0.87 K/mm3 (0.84-5.20); LYMPHOCYTES PERCENT AUTO 17 % (21-46); MONOCYTES ABSOLUTE AUTO 0.33 K/mm3 (0.16-1.47); MONOCYTES PERCENT AUTO 7 % (4-13); Mean Corpuscular HGB 32.1 pg (26.0-34.0); Mean Corpuscular HGB Conc 33.7 g/dL (31.5-36.5); Mean Corpuscular Volume 96 fL (80-100); Mean Platelet Volume 8.8 fL (9.1-12.4); NEUTROPHILS ABSOLUTE AUTO 3.62 K/mm3 (1.96-9.15); NEUTROPHILS PERCENT AUTO 72 % (41-73); Platelet Count 386 K/mm3 (150-400); White Blood Cell Count 5.03 K/mm3 (4.00-11.30)
[2023-11-22 13:43] LABS: Albumin, Blood 3.1 g/dL (3.4-5.0); Albumin/Globulin Ratio 0.9 (0.8-1.8); Bilirubin, Total 0.5 mg/dL (0.1-1.0); Bun/Creatinine Ratio 11.4 (12.0-20.0); Calcium, Blood 8.7 mg/dL (8.5-10.1); Creatinine, Blood 1.32 mg/dL (0.60-1.20); Globulin, Blood 3.6 g/dL (2.2-4.0); Potassium, Blood 4.2 mmol/L (3.5-5.5); Total Protein, Blood 6.7 g/dL (6.4-8.2)
[2023-11-22 18:24] LABS: Magnesium, Blood 2.1 mg/dL (1.6-2.4)
[2023-11-22 18:25] LABS: Thyroid Stimulating Hormone 7.97 uIU/mL (0.360-4.800)
[2023-11-22 19:47] LABS: Source, Urine Clean Catch
[2023-11-22 19:58] LABS: Appearance, Urine Clear (Clear); Bilirubin, Urine Neg (Neg); Blood, Urine Neg (Neg); Color, Urine Yellow (P-Yellow); Glucose Qualitative, Urine Neg (Neg); Ketones, Urine Neg (Neg); Leukocyte Esterase, Urine Neg (Neg); Nitrite, Urine Neg (Neg); Protein, Urine Neg (Neg); Urobilinogen, Urine NORM (Normal)
[2023-11-22 20:52] LABS: Free Thyroxine 0.9 ng/dL (0.70-1.60)
[2023-11-22] MEDS ORDERED: MIRALAX17 GM PO (23:15)
[2023-11-22] MEDS ORDERED: PROLIA60 MG/1 ML SC (23:15)
[2023-11-22] MEDS ORDERED: SENN187 PO (23:16)
[2023-11-22] MEDS ORDERED: METOPROLOL SUCC25 MG PO (23:28)
[2023-11-22] MEDS ORDERED: FUROSEMIDE20 MG PO (23:28)
[2023-11-22] MEDS ORDERED: PREGABALIN75 MG PO (23:29)
[2023-11-22] MEDS ORDERED: LIDOCAINE1 EACH TOP (23:30)
[2023-11-22 23:42] LABS: CHOL/HDL RATIO 2.3; Cholesterol 88 mg/dL (50-200); HDL Cholesterol 38 mg/dL (>39); LDL/HDL RATIO 0.9; Low Density Lipoprotein Chol 34 mg/dL (0-110); Triglycerides 80 mg/dL (30-160); Very Low Density Lipoprot Chol 16 mg/dL (6-32)
[2023-11-22 23:54] VITALS: BP 123/66
[2023-11-23] MEDS ORDERED: Acetaminophen 325 MG TABLET PO PRN (00:35)
[2023-11-23 04:38] VITALS: BP 114/68
[2023-11-23 05:51] LABS: BASOPHILS ABSOLUTE AUTO 0.06 K/mm3 (0.00-0.23); BASOPHILS PERCENT AUTO 2 % (0-2); EOSINOPHILS ABSOLUTE AUTO 0.16 K/mm3 (0.00-0.68); EOSINOPHILS PERCENT AUTO 4 % (0-6); Hematocrit 37.6 % (37.0-53.0); Hemoglobin 12.7 g/dL (13.5-17.5); IMMATURE GRAN ABSOLUTE AUTO 0.01 K/mm3 (0.00-0.10); IMMATURE GRAN PERCENT AUTO 0 % (0-1); LYMPHOCYTES ABSOLUTE AUTO 1.01 K/mm3 (0.84-5.20); LYMPHOCYTES PERCENT AUTO 27 % (21-46); MONOCYTES PERCENT AUTO 8 % (4-13); Mean Corpuscular HGB 32.2 pg (26.0-34.0); Mean Corpuscular HGB Conc 33.8 g/dL (31.5-36.5); Mean Corpuscular Volume 95 fL (80-100); Mean Platelet Volume 8.8 fL (9.1-12.4); NEUTROPHILS ABSOLUTE AUTO 2.15 K/mm3 (1.96-9.15); NEUTROPHILS PERCENT AUTO 58 % (41-73); Platelet Count 332 K/mm3 (150-400); RDW Standard Deviation 45.1 fL (35.1-46.3); Red Blood Cell Count 3.94 M/mm3 (4.30-5.90); White Blood Cell Count 3.69 K/mm3 (4.00-11.30)
[2023-11-23 06:10] LABS: Bun/Creatinine Ratio 13.1 (12.0-20.0); Calcium, Blood 8.3 mg/dL (8.5-10.1); Creatinine, Blood 1.22 mg/dL (0.60-1.20)
--- NOTE | 2023-11-23 06:33 | NUR ---
PT ARRIVED ON UNIT STABLE, TREMORS WHEN TRANSFERRING, WEAKNESS. A/OX4. NS @125/HR. REPORTS DIZZINESS WHEN STANDING. NEURO CHECKS PERFORMED. ACETAMINOPHEN GIVEN FOR HEADACHE
[2023-11-23 07:34] VITALS: BP 125/71
[2023-11-23] MEDS ORDERED: Aspirin 81 MG Chew PO SCH (09:00)
[2023-11-23] MEDS ORDERED: Ticagrelor 90 MG TABLET PO SCH (09:00)
[2023-11-23] MEDS ORDERED: Atorvastatin 40 MG Tab PO SCH (09:00)
[2023-11-23 15:54] VITALS: BP 137/82
--- NOTE | 2023-11-23 17:43 | NUR ---
SHIFT SUMMARY: PT A/O X4. OCCASIONALY FORGETFUL. MRI COMPLETED THIS SHIFT. PT WORKED EXTENSIVELY WITH PHYSICAL THERAPY FOR PAROXYMAL POSITIONAL VERTIGO. PT STATES HE IS FEELING "50-60% BETTER." DR. LUEVANO AWARE. STATED POSSIBLE D/C TOMORROW. CALL LIGHT IN REACH.
[2023-11-23 19:26] VITALS: BP 137/64
[2023-11-23] MEDS ORDERED: Melatonin 5 MG Tablet PO PRN (22:20)
[2023-11-23] MEDS ORDERED: TraMADol HCl 50 MG Tab PO PRN (22:25)
[2023-11-24 02:06] VITALS: BP 141/79
[2023-11-24 05:03] LABS: Hematocrit 39.4 % (37.0-53.0); Hemoglobin 13.4 g/dL (13.5-17.5)
[2023-11-24 05:20] LABS: Calcium, Blood 8.4 mg/dL (8.5-10.1); Creatinine, Blood 1.08 mg/dL (0.60-1.20); Potassium, Blood 4.2 mmol/L (3.5-5.5)
--- NOTE | 2023-11-24 06:27 | NUR ---
NO ACUTE CHANGES DURING SHIFT. VSS. MELATONIN AND TRAMADOL PRN ADDED. PT WAS HAVING HEADACHE, ACETAMINOPHEN HAD NO EFFECT, PT WAS ABLE TO SLEEP COMFORTABLY WHEN GIVEN MELATONIN AND TRAMADOL - NO ADVERSE REACTION TO TRAMADOL. TELE SR 81 BPM. NS@125.
[2023-11-24 07:45] VITALS: BP 133/89
[2023-11-24] MEDS ORDERED: Meclizine HCl 25 MG Tab PO ONE (11:00)
[2023-11-24] MEDS ORDERED: TICA90TA PO (12:50)
--- NOTE | 2023-11-24 13:49 | NUR ---
DISCHARGE: PT D/C @1340 VIA WHEELCHAIR WITH AND SON. NO NEW MEDICATIONS. TELE SENT BACK. IV REMOVED BY DEAF INTERPRETER W/O COMPLICATIONS. MECLIZINE INEFFECTIVE FOR DIZZINESS. PT AWARE TO FOLLOW-UP OUTPT WITH [facility]. NUMBER PROVIDED FOR PT. NO QUESTIONS AT TIME OF D/C.
== END 2023-11-24 13:39 | disposition home or self-care (01) ==
LOC: ER 12:29 → MEDS 12:30
PROVIDERS: Family Medicine; Physician Assistant; Student in an Organized Health Care Education/Training Program; ADMIT Internal Medicine
DX: R42 Dizziness and giddiness (principal); I65.23 Occlusion and stenosis of bilateral carotid arteries; I77.1 Stricture of artery; I12.9 Hypertensive chronic kidney disease with stage 1 through stage 4 chronic kidney disease, or unspecified chronic kidney disease; N18.31 Chronic kidney disease, stage 3a; I25.10 Atherosclerotic heart disease of native coronary artery without angina pectoris; Z95.5 Presence of coronary angioplasty implant and graft; K21.9 Gastro-esophageal reflux disease without esophagitis; E78.5 Hyperlipidemia, unspecified; Z88.0 Allergy status to penicillin; Z88.5 Allergy status to narcotic agent; Z88.8 Allergy status to other drugs, medicaments and biological substances; Z79.899 Other long term (current) drug therapy
CPT/HCPCS: 36415; 70450; 70496; 70498; 70551; 80048; 80053; 80061; 81003; 83036; 83735; 84439; 84443; 84484; 85014; 85018; 85025; 93005; 93010; 96360; 96361; 97162; 97530; 99285-25; A9270; G0378; J7030; Q9967

== ENCOUNTER 2024-02-25 12:07 | Emergency (ER) | payer MEDICARE, OTHER ==
[~2024-02-25] VITALS: Ht 177.8 cm; Wt 72.6 kg
[~2024-02-25 12:07] MED LIST changes: +FUROSEMIDE20 MG PO; +LIDOCAINE1 EACH TOP; -NS 1,000 ML IV SCH; +PREGABALIN75 MG PO; +PROLIA60 MG/1 ML SC; +SENN187 PO; +TICA90TA PO
[2024-02-25] MEDS ORDERED: MECL25 (12:18)
[2024-02-25] MEDS ORDERED: Petrolatum Ointment 5 gm TOP ONE (12:20)
[2024-02-25 12:45] LABS: Source, Urine Clean Catch
[2024-02-25 12:48] LABS: Bilirubin, Urine Neg (Neg); Blood, Urine 1+ (Neg); Glucose Qualitative, Urine Neg (Neg); Ketones, Urine Neg (Neg); Leukocyte Esterase, Urine Neg (Neg); Nitrite, Urine Neg (Neg); Protein, Urine 1+ (Neg); Urobilinogen, Urine NORM (Normal); pH, Urine 6.5 (5.0-8.0)
[2024-02-25 12:59] LABS: Appearance, Urine Clear (Clear); Color, Urine Yellow (P-Yellow)
[2024-02-25 13:00] LABS: Bacteria Rare /hpf; Squamous Epithelial Cells Rare /hpf (Few); White Blood Cells, Urine 0-2 /hpf (0-5)
[2024-02-25 14:00] VITALS: BP 130/65
== END 2024-02-25 14:17 | disposition home or self-care (01) ==
LOC: ER 12:07
PROVIDERS: Emergency Medicine
DX: S30.812A Abrasion of penis, initial encounter (principal); R31.9 Hematuria, unspecified; I12.9 Hypertensive chronic kidney disease with stage 1 through stage 4 chronic kidney disease, or unspecified chronic kidney disease; N18.30 Chronic kidney disease, stage 3 unspecified; I25.2 Old myocardial infarction; K21.9 Gastro-esophageal reflux disease without esophagitis; Z79.82 Long term (current) use of aspirin; Z79.899 Other long term (current) drug therapy; Z88.0 Allergy status to penicillin; Z88.5 Allergy status to narcotic agent; Z88.8 Allergy status to other drugs, medicaments and biological substances
CPT/HCPCS: 81001; 99283; A9270